=== PATIENT | female | born 1985 | race Caucasian/White ===

== ENCOUNTER 2025-05-08 16:05 | Observation (INO) | payer OTHER, SELFPAY ==
--- NOTE | 2025-05-08 16:10 | OBADM ---
This patient, Anamika Crowley, admitted to the OB room OB Post 116 for observation. Patient/family oriented to hospital policies and general routines including ID bracelet, bed and alarms, visiting hours, pain management, procedures, bathroom and other care routines, personal items, smoking policy, room service/diet, and visiting hours. Patient/Family are encouraged to report perceived risks to care and to ask questions if they do not understand what they are told or what they should do.
--- NOTE | 2025-05-08 16:15 | PC.NURSE ---
Doppler of T's 150's. Visual exam a small long to quarter size bulge of tissue was noted that was deep purple reddish in color. No internal exam was performed at this time.
--- OUTSIDE RECORDS SUMMARY | 2025-05-08 16:16 | XMS_ITS | Encounter Summary ---
Author Organization [facility] System Address [address] [place] [address] Care Team Providers Care Operations Officer Afloat Name Role Phone Shanelle Funk VEGETABLE LOADER MACHINE OPERATOR Primary Care Provider Joycelyn Truong MD Primary Care Provider + [phone] Arielle Haynes NP Primary Care Provider + [phone] Joycelyn Gomez MD Primary Care Provider + [phone] Uma Tomlin [facility] Primary Care Provider + Judy Tse VEGETABLE LOADER MACHINE OPERATOR Primary Care Provider [phone] Uriah Sevilla Primary Care Provider [phone] Encounter Details Date Type Department Care Team (Latest Contact Info) Description 05/24/2018 Abstract [facility] Medical Group Huang Lopez MD Social History Tobacco Use Types Packs/Day Years Used Date Smoking Tobacco: Never Assessed Comments Unknown Sex and Gender Information Value Date Recorded Sex Assigned at Female 11/20/2024 9:16 AM NC MANAGER Legal Sex Female 7:00 PM CDT Gender Identity Not on file Sexual Orientation Not on file documented as of this encounter Plan of Treatment Not on file documented as of this encounter Visit Diagnoses Not on filedocumented in this encounter Additional Health Concerns Infection Onset Date Last Indicated Resolved Time COVID-19 Rule Out 05/17/2020 05/17/2020 05/18/2020 10:31 AM CDT COVID-19 Rule Out 05/04/2021 05/04/2021 05/04/2021 2:21 PM CDT COVID-19 Rule Out 01/31/2022 01/31/2022 01/31/2022 3:20 PM CDT COVID-19 Confirmed 01/31/2022 01/31/2022 12:32 AM CDT COVID-19 Rule Out 06/23/2022 06/23/2022 06/23/2022 12:16 PM CDT COVID-19 Rule Out 11/02/2022 11/02/2022 11/02/2022 1:59 PM NC MANAGER documented as of this encounter Care Teams Operations Officer Afloat Relationship Specialty Start Date End Date Shanelle Funk NP PCP - General 07/04/16 07/27/20 Joycelyn Gomez MD PCP - General INTERNAL MEDICINE 07/28/20 11/28/22 [place] [address] [address] [place] [address] PCP - General Nurse Practitioner Family 12/29/2212/23 Joycelyn Gomez MD PCP - General INTERNAL MEDICINE 11/29/22 12/28/22 [facility] [address] [place], [place] [id number] PCP - General 01/02/23 01/30/23 [place] [address] [address], [address] [place] [address] PCP - General Nurse Practitioner Family 01/31/2310/25 [place] [address] [place] [address] PCP - General Physician Card Reader Medical 11/12/23 documented as of this encounter
--- OUTSIDE RECORDS SUMMARY | 2025-05-08 16:16 | XMS_ITS | Encounter Summary ---
Author Organization [facility] System Address [address] [place] [address] Care Team Providers Care Project Economist Name Role Phone Joycelyn Gomez MD Primary Care Provider + [phone] Arielle Haynes NP Primary Care Provider + [phone] Joycelyn Gomez MD Primary Care Provider + [phone] Uma Tomlin [facility] Primary Care Provider + Judy Tse NP Primary Care Provider [phone] Uriah Sevilla Primary Care Provider [phone] Encounter Details Date Type Department Care Team (Late st Contact Info) Description 06/03/2021 Ocelus Message [facility] Patient Accounts [address] [place], [place] [id number] [facility] Provider RE:financial assistance application Social History Tobacco Use Types Packs/Day Years Used Date Smoking Tobacco: Former Cigarettes 0.3 9.9 2 002 - 09/04/2011 Smokeless Tobacco: Never Alcohol Use Standard Drinks/Week Comments Yes 0 (1 standard drink = 0.6 oz pur e alcohol) social AUDIT-C Answer Date Recorded Q1: How often do you have a drink containing alc ohol? 2-4 times a month 01/20/2021 Q2: How many drinks containi ng alcohol do you have on a typical day when you are drinking? 3 or 4 01/20/2021 Frequency of Binge Drinking Not on file 12/24 PHQ-2 Answer Date Recorded PHQ-2 Score - If the patient scores above 3, please move on to questions 3-9 0 05/04/2021 Comments No Sex and Gender Information Value Date Recorded Sex Assigned at Female 11/20/2024 9:16 AM CARROT TIER Legal Sex Female 7:00 PM CDT Gender Identity Not on file Sexual Orientation Not on file COVID-19 Exposure Response Date Recorded In the last month, have you been in contact with someone who was confirmed or suspected to have Coronavirus / COVID-19? No / Unsure 05/04/2021 10:37 AM CDT documented as of this encounter Plan of Treatment Not on file documented as of this encounter Visit Diagnoses Not on filedocumented in this encounter Additional Health Concerns Infection Onset Date Last Indicated Resolved Time COVID-19 Rule Out 01/31/2022 01/31/2022 01/31/2022 3:20 PM CDT COVID-19 Confirmed 01/31/2022 01/31/2022 12:32 AM CDT COVID-19 Rule Out 06/23/2022 06/23/2022 06/23/2022 12:16 PM CDT COVID-19 Rule Out 11/02/2022 11/02/2022 11/02/2022 1:59 PM CARROT TIER Assessment Noted Time PHQ-9 Depression Total Score: 0 05/04/20 21 1:11 PM CDT documented as of this encounter Care Teams Project Economist Relationship Specialty Start Date End Date Joycelyn Gomez MD PCP - General INTERNAL MEDICINE 07/28/20 11/28/22 [place] [address] [address] PCP - General Nurse Practitioner Family 12/29/2212/23 Joycelyn Gomez MD PCP - General INTERNAL MEDICINE 11/29/22 12/28/22 Uma Tomlin, CLOTH EXAMINER MACHINE- [address] [place] [address] PCP - General 01/02/23 01/30/23 [place] [address] [address], [address] [place] [address] PCP - General Nurse Practitioner Family 01/31/2310/25 [place] [address] [place] [address] PCP - General Physician Licensing Coordinator Medical 11/12/23 documented as of this encounter
--- OUTSIDE RECORDS SUMMARY | 2025-05-08 16:16 | XMS_ITS | Encounter Summary ---
Author Organization [facility] System Address [address] [place] [address] Care Team Providers Care Rpg Programmer Analyst Name Role Phone Shanelle Funk ASSOCIATE DIRECTOR OF BIOSTATISTICS Primary Care Provider Joycelyn Truong MD Primary Care Provider + [phone] Arielle Haynes ASSOCIATE DIRECTOR OF BIOSTATISTICS Primary Care Provider + [phone] Joycelyn Gomez MD Primary Care Provider + [phone] [facility] Primary Care Provider + Judy Tse ASSOCIATE DIRECTOR OF BIOSTATISTICS Primary Care Provider [phone] Uriah Sevilla Primary Care Provider [phone] Encounter Details Date Type Department Care Team (Late st Contact Info) Description 07/27/2020 Big Box Overstockst Message Enc [facility] Medical Group Family & Internal Medicine [address] [address] [facility] [address] [place] [address] RE: Other Social History Tobacco Use Types Packs/Day Years Used Date Smoking Tobacco: Former Cigarettes Q uit: 09/04/2011 Smokeless Tobacco: Never Alcohol Use Standard Drinks/Week Comments Yes 0 (1 standard drink = 0.6 oz pur e alcohol) social PHQ-2 Answer Date Recorded PHQ-2 Score 4 2020 Comments No Sex and Gender Information Value Date Recorded Sex Assigned at Female 11/20/2024 9:16 AM INVESTIGATOR VICE Legal Sex Female 7:00 PM CDT Gender Identity Not on file Sexual Orientation Not on file documented as of this encounter Plan of Treatment Not on file documented as of this encounter Visit Diagnoses Not on filedocumented in this encounter Additional Health Concerns Infection Onset Date Last Indicated Resolved Time COVID-19 Rule Out 05/04/2021 05/04/2021 05/04/2021 2:21 PM CDT COVID-19 Rule Out 01/31/2022 01/31/2022 01/31/2022 3:20 PM CDT COVID-19 Confirmed 01/31/2022 01/31/2022 12:32 AM CDT COVID-19 Rule Out 06/23/2022 06/23/2022 06/23/2022 12:16 PM CDT COVID-19 Rule Out 11/02/2022 11/02/2022 11/02/2022 1:59 PM INVESTIGATOR VICE Assessment Noted Time PHQ-9 Depression Total Score: 12 020 11:09 AM CDT documented as of this encounter Care Teams Rpg Programmer Analyst Relationship Specialty Start Date End Date Shanelle Funk NP PCP - General 07/04/16 07/27/20 Joycelyn Gomez MD PCP - General INTERNAL MEDICINE 07/28/20 11/28/22 [place] [address] [place] [address] PCP - General Nurse Practitioner Family 12/29/2212/23 Joycelyn Gomez MD PCP - General INTERNAL MEDICINE 11/29/22 12/28/22 Uma Tomlin FNP- [address] [place] [address] PCP - General 01/02/23 01/30/23 [place] [address] [address] [place] [address] PCP - General Nurse Practitioner Family 01/31/2310/25 [place] [address] [place] [address] PCP - General Physician Skiver Hand Medical 11/12/23 documented as of this encounter
--- OUTSIDE RECORDS SUMMARY | 2025-05-08 16:16 | XMS_ITS | Clinical Summary ---
Author Organization [facility] Address [address] [place] [address] Care Team Providers Care Field Account Director Name Role Phone Unavailable Primary Care Provider Unavailabl e Source Comments [facility],non-owned Affiliates and Associated Physician Practices is amultiple site organization consisting of ambulatory clinics and hospital sitesin [place], [place], [place] and [place]. This disclosure is being madepursuant to the Care Everywhere program and may not contain all information available regarding this patient. 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 Social History Tobacco Use Types Packs/Day Years Used Date Smoking Tobacco: Never Assessed Comments Unknown Sex and Gender Information Value Date Recorded Sex Assigned at Not on file Legal Sex Female 1:06 PM REAL ESTATE PROFESSIONAL Gender Identity Not on file Sexual Orientation Not on file Plan of Treatment Health Maintenance Due Date Last Done Comments HIV SCREENING 2001 HEPATITIS C SCREENING 05/23/2004 DTAP/TDAP/TD VACCINES (1 - Tdap) 2005 HEPATITIS B VACCINE (1 of 3 - 19+ 3-dose series) 2005 HPV VACCINE (1 - 3-dose SCDM series) 2013 COVID-19 VACCINE ( - 2023-2 5 season) 2024 DEPRESSION SCREENING 09/24/2024 INFLUENZA VACCINE (#1) 2025 ZOSTER VACCINE (1 of 2) 2036 HIB VACCINE Aged Out No longer eligi ble based on patient's age to complete this topic MENINGOCOCCAL (Group B) VACC INE SHARED DECISION-MAKING Aged Out No longer eligibl e based on patient's age to complete this topic MENINGOCOCCAL GROUPS A/C/Y/W VACCINE Aged Out No longer eligible b ased on patient's age to complete this topic PNEUMOCOCCAL VACCINE Aged Out No long er eligible based on patient's age to complete this topic Insurance AETNA Advance Directives Documents on File Type Date Recorded Patient Svp Research And Strategic Analysis Expl anation Adv Directive/Living Will/POA 01/01/2017
--- OUTSIDE RECORDS SUMMARY | 2025-05-08 16:16 | XMS_ITS | Encounter Summary ---
Author Organization [facility] Address [address] [place] [address] Care Team Providers Care Clinical Application Manager Name Role Phone Joycelyn Gomez MD Primary Care Provider + [phone] Arielle Haynes BURGLAR ALARM ASSEMBLER Primary Care Provider + [phone] Joycelyn Gomez MD Primary Care Provider + [phone] Uma Tomlin [facility] Primary Care Provider + Judy Tse BURGLAR ALARM ASSEMBLER Primary Care Provider [phone] Uriah Sevilla Primary Care Provider [phone] Encounter Details Date Type Department Care Team (Late st Contact Info) Description 11/03/2021 MyChart Message Enc [facility] Medical Group Family & Internal Medicine [facility] [id number] [place] [address] Joycelyn Gomez MD [address] [place] [address] [place] Social History Tobacco Use Types Packs/Day Years [...] Sex Assigned at Female 11/20/2024 9:16 AM WASTE ELIMINATION Legal Sex Female 7:00 PM CDT Gender Identity Not on file Sexual Orientation Not on file COVID-19 Exposure Response Date Recorded In the last month, have you been in contact with someone who was confirmed or suspected to have Coronavirus / COVID-19? No / Unsure 10/17/2021 1:23 PM WASTE ELIMINATION documented as of this encounter Progress Notes * Arielle Jimenez RN - 11/15/2021 3:59 PM CST PA danial [place] was DENIED. Will need to work on Letter, E ELIMINATION documented in this encounter Plan of Treatment Not on [...] Rule Out 11/02/2022 11/02/2022 11/02/2022 1:59 PM WASTE ELIMINATION Assessment Noted Time PHQ-9 Depression Total Score: 0 05/04/20 21 1:11 PM CDT documented as of this encounter Care Teams Clinical Application Manager Relationship Specialty Start Date End Date Joycelyn Gomez MD PCP - General INTERNAL MEDICINE 07/28/20 11/28/22 [place] [address] [place] [address] PCP - General Nurse Practitioner Family 12/29/2212/23 Joycelyn Gomez MD PCP - General INTERNAL MEDICINE 11/29/22 12/28/22 Uma Tomlin, [facility] [address] [place] [address] PCP - General 01/02/23 01/30/23 [place] [address] [address], [address] [place] [address] PCP - General Nurse Practitioner Family 01/31/2310/25 [place] [address] [place] [address] PCP - General Physician Manager New Product Medical 11/12/23 documented as of this encounter
--- OUTSIDE RECORDS SUMMARY | 2025-05-08 16:16 | XMS_ITS | Encounter Summary ---
Author Organization [facility] System Address [address] [place] [address] Care Team Providers Care Stars Coordinator Name Role Phone Uriah Sevilla Primary Care Provider [phone] Encounter Details Date Type Department Care Team (Late st Contact Info) Description 11/20/2024 Vdopia Message Enc [facility] Medical Group Family & Internal Medicine [address] [address] [facility] Provider Appt Social History Tobacco Use Types Packs/Day Years Used Date Smoking Tobacco: Former Cigarettes 0.3 9.9 2 002 - 09/04/2011 Passive Smoke Exposure: Past Smokeless Tobacco: Never Alcohol Use Standard Drinks/Week [...] on file 12/24 PHQ-2 Answer Date Recorded Patient Health Questionnaire-2 Score 0 11/19/2024 Comments No Sex and Gender Information Value Date Recorded Sex Assigned at Female 11/20/2024 9:16 AM ATHLETIC TEAM PHYSICIAN Legal Sex Female 7:00 PM CDT Gender Identity Not on file Sexual Orientation Not on file documented as of this encounter Plan of Treatment Not on file documented as of this encounter Visit Diagnoses Not on filedocumented in this encounter Additional Health Concerns Assessment Noted Time PHQ-9 Depression Total Score: 1 02/01/20 22 9:49 AM CDT documented as of this encounter Care Teams Stars Coordinator Relationship Specialty Start [place] [address] [place] [address] PCP - General Physician Costing Analyst Medical 11/12/23 documented as of this encounter
--- OUTSIDE RECORDS SUMMARY | 2025-05-08 16:16 | XMS_ITS | Encounter Summary ---
Author Organization [facility] System Address [address] [place] [address] Care Team Providers Care Engineering Project Manager Name Role Phone Joycelyn Gomez MD Primary Care Provider + [phone] Arielle Haynes NP Primary Care Provider + [phone] Joycelyn Gomez MD Primary Care Provider + [phone] Uma Tomlin [facility] Primary Care Provider + Judy Tse NP Primary Care Provider [phone] Uriah Sevilla Primary Care Provider [phone] Encounter Details Date Type Department Care Team (Late st Contact Info) Description 05/09/2021 Coiney Message [facility] Patient Accounts [address] [place], [place] [id number] [facility] Provider Financial Assistance Social History Tobacco Use Types Packs/Day Years [...] Sex Assigned at Female 11/20/2024 9:16 AM POCKET AND PULLEY MACHINE OPERATOR Legal Sex Female 7:00 PM CDT Gender [...] Rule Out 11/02/2022 11/02/2022 11/02/2022 1:59 PM POCKET AND PULLEY MACHINE OPERATOR Assessment Noted Time PHQ-9 Depression Total Score: 0 05/04/20 21 1:11 PM CDT documented as of this encounter Care Teams Engineering Project Manager Relationship Specialty Start Date End Date Joycelyn Gomez MD PCP - General INTERNAL MEDICINE 07/28/20 11/28/22 [place] [address] [address] PCP - General Nurse Practitioner Family 12/29/2212/23 Joycelyn Gomez MD PCP - General INTERNAL MEDICINE 11/29/22 12/28/22 Uma Tomlin, [facility]- [address] [place] [address] PCP - General 01/02/23 01/30/23 [place] [address] [address], [address] [place] [address] PCP - General Nurse Practitioner Family 01/31/2310/25 [place] [address] [place] [address] PCP - General Physician Appliance Counselor Medical 11/12/23 documented as of this encounter
--- OUTSIDE RECORDS SUMMARY | 2025-05-08 16:16 | XMS_ITS | Encounter Summary ---
Author Organization [facility] Address [address] [place] [address] Care Team Providers Care Elementary Special Education Teacher Name Role Phone Joycelyn Gomez MD Primary Care Provider + [phone] Arielle Haynes INSURANCE DEFENSE ATTORNEY Primary Care Provider + [phone] Joycelyn Gomez MD Primary Care Provider + [phone] Uma Tomlin [facility] Primary Care Provider + Judy Tse INSURANCE DEFENSE ATTORNEY Primary Care Provider [phone] Uriah Sevilla Primary Care Provider [phone] Encounter Details Date Type Department Care Team (Late st Contact Info) Description 11/25/2020 Diligent Board Member Services Message [facility] [address] [place] [address] [facility] [place] Social History Tobacco Use Types Packs/Day Years Used Date Smoking Tobacco: Former Cigarettes Q uit: 09/04/2011 Smokeless Tobacco: Never Alcohol Use Standard Drinks/Week Comments Yes 0 (1 standard drink = 0.6 oz pur e alcohol) social PHQ-2 Answer Date Recorded PHQ-2 Score 4 2020 Comments No Sex and Gender Information Value Date Recorded Sex Assigned at Female 11/20/2024 9:16 AM TRENCH PIPE LAYER HELPER Legal Sex Female 7:00 PM CDT Gender [...] Rule Out 11/02/2022 11/02/2022 11/02/2022 1:59 PM TRENCH PIPE LAYER HELPER Assessment Noted Time PHQ-9 Depression Total Score: 12 020 11:09 AM CDT documented as of this encounter Care Teams Elementary Special Education Teacher Relationship Specialty Start Date End Date Joycelyn Gomez MD PCP - General INTERNAL MEDICINE 07/28/20 11/28/22 [place] [address] [place] [address] PCP - General Nurse Practitioner Family 12/29/2212/23 Joycelyn Gomez MD PCP - General INTERNAL MEDICINE 11/29/22 12/28/22 Uma Tomlin FNP- [address] [place], [place] [address] PCP - General 01/02/23 01/30/23 [place] [address] [address], [address] [place], [place] [address] PCP - General Nurse Practitioner Family 01/31/2310/25 [place] [address] [place] [address] PCP - General Physician Certified Credit Counselor Medical 11/12/23 documented as of this encounter
--- OUTSIDE RECORDS SUMMARY | 2025-05-08 16:16 | XMS_ITS | Encounter Summary ---
Author Organization [facility] Address [address] [place] [address] Care Team Providers Care Electronic Assembler Group Leader Name Role Phone Judy Tse NP Primary Care Provider [phone] Uriah Sevilla Primary Care Provider [phone] Encounter Details Date Type Department Care Team (Late st Contact Info) Description 10/25/2023 iBiz Softwaret Message Enc [facility] Medical Group Family & Internal Medicine [facility] [address] [place] [address] Uriah Sevilla PA [address] [place] [address] [place] Social History Tobacco Use Types Packs/Day Years [...] Date Recorded Patient Health Questionnaire-2 Score 0 01/24/2023 Comments No Sex and Gender Information Value Date Recorded Sex Assigned at Female 11/20/2024 9:16 AM CONFIDENTIAL INVESTIGATOR Legal Sex Female 7:00 PM CDT Gender Identity Not on file Sexual Orientation Not on file documented as of this encounter Plan of Treatment Not on file documented as of this encounter Visit Diagnoses Not on filedocumented in this encounter Additional Health Concerns Assessment Noted Time PHQ-9 Depression Total Score: 1 02/01/20 22 9:49 AM CDT documented as of this encounter Care Teams Electronic Assembler Group Leader Relationship Specialty [place] [address] [address], [address] [place] [address] PCP - General Nurse Practitioner Family 01/31/2310/25 [place] [address] [place] [address] PCP - General Physician Lead Security Officer Medical 11/12/23 documented as of this encounter
--- OUTSIDE RECORDS SUMMARY | 2025-05-08 16:16 | XMS_ITS | Clinical Summary ---
Author Organization [facility] Address [place] [address] Care Team Providers Care Fast Food Fry Cook Name Role Phone Uriah Sevilla Primary Care Provider [phone] Allergies Active Allergy Reactions Criticality Noted Date Comments Nickel Rash Low 06/05/2016 Tramadol Nausea Only,Dizziness Low 01/20/2021 Medications albuterol sulfate HFA 108 (90 Base) MCG/ACT inhalerIndicatio ns:Mild intermittent asthma, unspecified whether complicated (HHS/HCC) Inhale 2 puffs into the lungs every 6 (six) hours as needed for Wheezing. 8 g 5 03/19/20 20 Active multi vitamin/minerals tablet Take 1 tablet by mouth daily. Active SUMAtriptan (IMITREX) 100 MG tabletIndication s:Migraine without aura and with status migrainosus, not intractable TAKE ONE TABLET BY MOUTH AT ONSET OF SYMPTOMS, MAY TAKE ONE TABLET 2 HOURS LATER. MAX OF 2 TABLETS SHALA 24 HOUR PERIOD. 9 tablet 5 06/30/20 24 Active Additional Information Patient not taking.Reported on 04/20/2025 linaCLOtide (LINZESS) 145 MCG capsuleIndicatio ns:Irritable bowel syndrome with constipation Take 1 capsule (145 mcg total) by mouth every morning before breakfast. Take on empty stomach at least 30 minutes prior to the first meal of the day. Swallow whole. Do not open capsule or chew. 90 capsule 3 12/04/19 25 Active Additional Information Patient not taking.Reported on 04/20/2025 MV & Min w/FA-DHA ( GUMMIES) 0.18-25 MG Chew Tab Active fluticasone propionate (FLONASE) 50 MCG/ACT nasal sprayIndications :Acute non-recurrent maxillary sinusitis 2 sprays by Nasal route daily for 30 days. 2 puffs each nostril twice a day for 3 days, then 2 puffs each nostril daily 18.2 mL 1 04/20/20 25 025 Active TRI-SPRINTEC 0.18/0.215/0.25 MG-35 MCG tablet Take 1 tablet by mouth daily. 12/20/19 23 025 Discontinu ed(Therapy completed) tirzepatide (MOUNJARO) 10 MG/0.5ML injectionIndicat ions:Diabetes Mellitus Indications: Diabetes Inject 10mg into the skin once per week 2 mL 2 11/19/19 25 025 Discontinu ed(Therapy completed) amoxicillin (AMOXIL) 875 MG tabletIndication s:Acute non-recurrent maxillary sinusitis Take 1 tablet (875 mg total) by mouth 2 (two) times daily for 10 days. 20 tablet 04/20/20 025 Hospital, Clinic, or Other Facility Administered Medication Ordered Dose Route Frequency Start Date End Date Status ondansetron (ZOFRAN) tablet 4 mgIndications:Obesity (BMI 35.0-39.9 without comorbidity) 4 mg OR Once 02/13/2024 Active Active Problems Problem Noted Date Diagnosed Date Controlled substance agreement signed 02/14/2023 Palpitations 02/14/2023 Exercise-induced asthma (HHS/HCC) 02/05/2023 Hx of gestational diabetes mellitus, not current ly 01/20/2021 Chronic pain of right knee 11/14/2019 Moderate mixed hyperlipidemia not requiring stat in therapy 09/04/2019 Allergic rhinitis 05/24/2018 BMI 35.0-35.9,adult 04/01/2018 Irritable bowel syndrome 05/23/2016 Menstrual periods irregular 12/16/2015 Chronic sinusitis 12/12/2015 PCOS (polycystic ovarian syndrome) 11/06/2014 Migraine headache 03/04/2013 Cystic acne 10/18/2012 Insomnia 10/18/2012 Anxiety 09/12/2012 Estimated Date of Delivery Comme nts Yes 09/22/2025 Resolved Problems Problem Noted Date Diagnosed Date Resolved Date Upper respiratory tract infe ction, unspecified type 08/18/2022 02/05/2023 Exposure to influenza 11/05/20192019 Obesity (BMI 30.0-34.9) 09/04/2019 0510/2020 Cough 01/05/2019 06/02/2020 Fatigue 05/24/2018 02/05/2023 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/23/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 01/03/2017 01/23/2021 Muscle spasm 09/22/2015 06/02/2020 Heartburn 01/28/2015 02/05/2023 Encounters Date Type Department Care Team Description 04/20/2025 3:40 PM CDT Office Visit [facility] [address] [phone] Uriah Sevilla PA Sinus Problem (Pt c/o headache, runny nose, ears feel full and sinus pressure X 6 weeks) 04/20/2025 Travel 02/09/2025 Telephone [facility] [address] [phone] Molly Apodaca FNP-BC Lab Results 02/05/2025 11:20 AM CDT Laboratory Only [facility] Internal [address] [phone] Molly Apodaca FNP-BC 02/05/2025 10:20 AM CDT Office Visit [facility] [address] [phone] Molly Apodaca FNP-BC Tester/Lift Trucker Exam 02/05/2025 Results Follow-Up [facility] & Internal [address] [phone] Molly Apodaca FNP-BC TEST URINE, HCG QUANT (SERUM)-CHORIONIC GONADOTROPIN, Cytopath Cerv/Vag Thin Layer 02/05/2025 Travel from Last 3 Months Immunizations Immunization Administration Dates Next Due Afluria 6-35 months (pre-tamara led syringe IIV4) 07/02/2017 Dtap 04/13/2017 Hepatitis B (Generic: Adult) 10/30/2012 Influenza (Generic) 06/21/2012 Influenza Adult (Generic) 07/16/2023,09/2021,08/01/2021,2019,07/09/2019 Influenza Peds (Generic) 07/02/2017 PFIZER COVID-19 (ORIGINAL FORMULATION, PURPLE CAP) mRNA, LNP-S, PF, 30 MCG/0.3 ML DOSE 01/06/2021,12/15/2020 Tdap (Generic) 04/25/2017 Family History Medical History Relation Comments Cancer Father Diabetes Father Hyperlipidemia Father Lung Cancer Father Cancer Mother Diabetes Mother Hyperlipidemia Mother Hypertension Mother Thyroid cancer Mother No Known Problems Other Throat cancer Paternal Grandfather Relation Status Comments Father prostrate & lung Mother Alive thyroid Other Paternal Grandfather Alive Social History Tobacco Use Types Packs/Day Years Used Date Smoking Tobacco: Former Cigarettes 0.3 9.9 2 002 - 09/04/2011 Passive Smoke Exposure: Past Smokeless Tobacco: Never Tobacco Cessation:Counseling Given: Yes Alcohol Use Standard Drinks/Week Comments Yes 0 [...] Recorded Patient Health Questionnaire-2 Score 0 11/19/2024 Estimated Date of Delivery Comme nts Yes 09/22/2025 Sex and Gender Information Value Date Recorded Sex Assigned at Female 11/20/2024 9:16 AM CLINICAL SCIENCES PROFESSOR Legal Sex Female 7:00 PM CDT Gender Identity Not on file Sexual Orientation Not on file Last Filed Vital Signs Vital Sign Reading Time Taken Comments Blood Pressure 110/85 04/20/2025 3:46 PM CDT Pulse 85 04/20/2025 3:46 PM CDT Temperature 36.7 C (98 F) 04/20/2025 3:46 PM CDT Respiratory Rate 16 04/20/2025 3:46 PM CDT Oxygen Saturation 100% 04/20/2025 3:46 PM CDT Inhaled Oxygen Concentration - - Weight 89.8 kg (198 lb) 04/20/2025 3:46 PM CDT Height 165.1 cm (5' 5) 04/20/2025 3:46 PM CDT Body Mass Index 32.95 04/20/2025 3:46 PM CDT Plan of Treatment Health Maintenance Due Date Last Done Comments HPV Vaccines (1 - 3-dose SCDM series) 2013 RSV Immunization or 60+ Years (1 - Risk 1-dose series) 07/28/2025 Annual Physical 02/05/2026 02/05/2025, 02/05/2023 COVID-19 Vaccine ( - 2023- season) 2026 01/06/2021, 12/15/2020 Postponed from 05/25/2024 (Patient Refused) Hepatitis B Vaccines (2 of 3 - 19+ 3-dose series) 02/10/2026 10/30/2012 Postponed from 11/27/2012 (Patient/Guardian Refusal) Colorectal Cancer Screening Colonoscopy (10 Years) 07/05/2026 07/04/2006 Postponed from 07/04/2016 (Per Provider Recommendation) DTaP, Tdap and Td Vaccines (3 - Td or Tdap) 04/25/2027 04/25/2017, 04/13/2017 Cervical Cancer Screening Pap Smear (Age 30 to 64) Every 3 Years 03/04/2028 03/04/2025, 02/05/2025, 01/09/2021 Cervical Cancer Screening Pap with HPV Testing (Age 30 to 64) Every 5 Years 03/04/2030 03/04/2025, 01/07/2021, 11/26/2017, Additional history exists Cervical Cancer Screening with HPV 03/04/2030 Pneumococcal Vaccine: Pediatrics (0 to 5 Years) and At-Risk Patients (6 to 49 Years) (1 of 2 - PCV) 01/25/2034 Postponed from 2005 (Per Provider Recommendation) PHQ-2 (Physician [place]) Completed 11/19/2024 Hepatitis C Completed 03/04/2025, 03/04/2025 Meningococcal B Vaccine Aged Out No l onger eligible based on patient's age to complete this topic Meningococcal Vaccine Aged Out No marta eriberto eligible based on patient's age to complete this topic RSV Immunizations Under 20 Months Aged Out No longer eligible based on patient's age to complete this topic Procedures Procedure Name Priority Date/Time Associated Diagnosis Comments COLLECTION VENOUS BLOOD VENIPUNCTURE Routine 02/05/2025 11:11 AM CDT Positive urine test (HHS/HCC) Irregular menses HCG QUANT (SERUM)-CHORIONIC GONADOTROPIN Routine 02/05/2025 11:10 AM CDT Irregular menses Positive urine test (HHS/HCC) CYTOPATH CERV/VAG THIN LAYER Routine 02/05/2025 10:58 AM CDT Cervical cancer screening TEST URINE Routine 02/05/2025 Irregular menses OUTSIDE CYTOPATH CERV/VAG INTERPRET (PAP) 01/07/2021 COLONOSCOPY Routine 07/04/2006 12:00 AM CDT from Last 3 Months or Most Recently Relevant to Health Maintenance Results * (ABNORMAL) HCG QUANT (SERUM)-CHORIONIC GONADOTROPIN (02/05/2025 11:10 AM CDT) HCG NON 83,303(H) mIU/mL [employer] [facility] Comment: Reference Range Non or premenopausal <5 Postmenopausal <10 Values from different assay methods may vary. The use of this assay to monitor or to diagnose patients with cancer or any condition unrelated to has not been cleared or approved by the FDA or the meteorology professor of the assay. 02/05/2025 11:1 0 AM CDT 02/06/2025 4:57 AM CDT Narrative Resulting Agency Comment Performing Organization Information: Site ID: [email or web address] Name: [employer] Address: [address] [address] Director: Donis Perez MD Molly Apodaca [facility] Final Re sult [facility] [address] [address] [address], [place] * Cytopath Cerv/Vag Thin Layer (02/05/2025 10:58 AM CDT) CLINICAL INFORMATION: IRREGULAR [place] Clinical Information: 12/20/2024 [place] Date of Last Pap NONE GIVEN [facility] [place] Previous Biopsy? NONE GIVEN [facility] [place] SOURCE (QST) Cervix, Endocervix [facility] [employer] [place] STATEMENT OF ADEQUACY: [place] Comment: Satisfactory for evaluation. Endocervical/transformation zone component present. PAP INTERPRETATION/RESU LTS Cytology Results: Negative for intraepithelial lesion or malignancy. [place] COMMENT: This Pap test has been evaluated with computer assisted technology. [place] TITLE EXAMINER [place] Comment: JOSSUE CT(ASCP) CT screening location: [place] [address] [place] [address] COMMENT: [place] Comment: EXPLANATORY NOTE: The Pap is a screening test for cervical cancer. It is not a diagnostic test and is subject to false negative and false positive results. It is most reliable when a satisfactory sample, regularly obtained, is submitted with relevant clinical findings and history, and when the Pap result is evaluated along with historic and current clinical information. 02/05/2025 10:5 8 AM CDT 02/06/2025 5:01 PM CDT Narrative Resulting Agency Comment Performing Organization Information: Site ID: [id number] Name: [facility] Address: [facility] [place] [address] Director: Donis Perez Molly Apodaca BATTERY MECHANIC- PATHOLOGY/CYTOLOGY ORDER KEDNALL Final Result [facility] [place] [address] [place] [address], [place] * (ABNORMAL) TEST URINE (02/05/2025) URINE HCG TEST POSITIVE(A ) NEGATIVE -[id number] MARY BREWSTER Internal Control: VALID VALID -[id number] MARY BREWSTER URINE SPECIMEN FROM URETHRA / Unknown 02/05/2025 us Molly Apodaca BATTERY MECHANIC-BC URINE ORDERABLES Final R esult Performing Organization Address City/[facility]/ZIP Co de Phone Number -[address] [place] [address] [place] [address], * PAP SMEAR WITH HPV (01/07/2021) 01/07/2021 [facility] Scanned SCANNING Final Resu lt * Colonoscopy (07/04/2006 12:00 AM CDT) 07/04/2006 07/04/2006 Narrative [facility] TO EPIC CONVERSION - 07/04/2006 12:00 AM CDT Documented hx of procedure Procedure Note , Generic Conversion, - 07/28/2018 Documented hx of procedure Generic Conversion Md HUERTAS GI PROCEDURE ORDERABLES Final Result Performing Organization Address City/[facility] Co de Phone Number [facility] TO EPIC CONVERSION from Last 3 Months or Most Recently Relevant to Health Maintenance Insurance [facility] Care Teams Fast Food Fry Cook Relationship Specialty [place] [address] [place] [address] PCP - General Physician Change Control Manager Medical 11/12/23
--- OUTSIDE RECORDS SUMMARY | 2025-05-08 16:16 | XMS_ITS | Encounter Summary ---
Author Organization [facility] Address [address] [place] [address] Care Team Providers Care Coat Checker Name Role Phone Joycelyn Gomez MD Primary Care Provider + [phone] Arielle Haynes EQUIPMENT MAINTENANCE TECHNICIAN Primary Care Provider + [phone] Joycelyn Gomez MD Primary Care Provider + [phone] Uma Tomlin [facility] Primary Care Provider + Judy Tse EQUIPMENT MAINTENANCE TECHNICIAN Primary Care Provider [phone] Uriah Sevilla Primary Care Provider [phone] Encounter Details Date Type Department Care Team (Late st Contact Info) Description 10/31/2021 MyChart Message Enc [facility] Medical Group Family & Internal Medicine [facility] [phone] [place] [phone] Joycelyn Gomez MD [address] [place] [address] [employer] Social History Tobacco Use Types Packs/Day Years [...] Sex Assigned at Female 11/20/2024 9:16 AM NUCLEAR CONTROL OPERATOR Legal Sex Female 7:00 PM CDT Gender Identity Not on file Sexual Orientation Not on file COVID-19 Exposure Response Date Recorded In the last month, have you been in contact with someone who was confirmed or suspected to have Coronavirus / COVID-19? No / Unsure 10/17/2021 1:23 PM NUCLEAR CONTROL OPERATOR documented as of this encounter Progress Notes * Arielle Jimenez RN - 10/31/2021 3:21 PM CST Printed to discuss with Dr. Hirsch EAR CONTROL OPERATOR documented in this encounter Plan of Treatment [...] Rule Out 11/02/2022 11/02/2022 11/02/2022 1:59 PM NUCLEAR CONTROL OPERATOR Assessment Noted Time PHQ-9 Depression Total Score: 0 05/04/20 1:11 PM CDT documented as of this encounter Care Teams Coat Checker Relationship Specialty Start Date End Date Joycelyn Gomez MD PCP - General INTERNAL MEDICINE 07/28/20 11/28/22 [place] [address] [place] [address] PCP - General Nurse Practitioner Family 12/29/2212/23 Joycelyn Gomez MD PCP - General INTERNAL MEDICINE 11/29/22 12/28/22 Uma Tomlin, TERMINOLOGIST- [address] [place] [address] PCP - General 01/02/23 01/30/23 [place] [address] [address], [address] [place] [address] PCP - General Nurse Practitioner Family 01/31/2310/25 [place] [address] [place] [address] PCP - General Physician Advice Nurse Medical 11/12/23 documented as of this encounter
--- OUTSIDE RECORDS SUMMARY | 2025-05-08 16:16 | XMS_ITS | Encounter Summary ---
Author Organization [facility] Address [address] [place] [address] Care Team Providers Care Automotive Engineering Teacher Name Role Phone Joycelyn Gomez MD Primary Care Provider + [phone] Arielle Haynes WOOL HANKER Primary Care Provider + [phone] Joycelyn Gomez MD Primary Care Provider + [phone] Uma Tomlin [facility] Primary Care Provider + Judy Tse WOOL HANKER Primary Care Provider [phone] Uriah Sevilla Primary Care Provider [phone] Encounter Details Date Type Department Care Team (Late st Contact Info) Description 09/18/2022 MyChart Message Enc [facility] Medical Group Family & Internal Medicine - [address] [phone] [place] Gomez MD Request Social History Tobacco Use Types Packs/Day Years [...] please move on to questions 3-9 0 01/31/2022 Comments No Sex and Gender Information Value Date Recorded Sex Assigned at Female 11/20/2024 9:16 AM CORPORATE HEALTH CONSULTANT Legal Sex Female 7:00 PM CDT Gender Identity Not on file Sexual Orientation Not on file documented as of this encounter Plan of Treatment Not on file documented as of this encounter Visit Diagnoses Not on filedocumented in this encounter Additional Health Concerns Infection Onset Date Last Indicated Resolved Time COVID-19 Rule Out 11/02/2022 11/02/2022 11/02/2022 1:59 PM CORPORATE HEALTH CONSULTANT Assessment Noted Time PHQ-9 Depression Total Score: 1 02/01/20 22 9:49 AM CDT documented as of this encounter Care Teams Automotive Engineering Teacher Relationship Specialty Start Date End Date Joycelyn Gomez MD PCP - General INTERNAL MEDICINE 07/28/20 11/28/22 [place] [address] [employer] [address] [employer] [address] [address] [place], [place] [id number] PCP - General Nurse Practitioner Family 12/29/2212/23 Joycelyn Gomez MD PCP - General INTERNAL MEDICINE 11/29/22 12/28/22 Uma Tomlin, GINO- [address] [place], [place] [id number] PCP - General 01/02/23 01/30/23 [place] [address] [address], [address] [place], [place] [id number] PCP - General Nurse Practitioner Family 01/31/2310/25 [place] [address] [facility] [place] [address] PCP - General Physician Artist Woodblock Medical 11/12/23 documented as of this encounter
--- OUTSIDE RECORDS SUMMARY | 2025-05-08 16:16 | XMS_ITS | Encounter Summary ---
Author Organization [facility] Address [address] [place] [address] Care Team Providers Care Director Of Hospitality Name Role Phone Joycelyn Gomez MD Primary Care Provider + [phone] Arielle Haynes NP Primary Care Provider + [phone] Joycelyn Gomez MD Primary Care Provider + [phone] Uma Tomlin [facility] Primary Care Provider + Judy Tse NP Primary Care Provider [phone] Uriah Sevilla Primary Care Provider [phone] Encounter Details Date Type Department Care Team (Late st Contact Info) Description 08/08/2022 [employer] Message Enc [facility] Medical Group Family & Internal Medicine - [address] [phone] Chris [facility] Provider antibiotic Social History Tobacco Use Types Packs/Day Years [...] Sex Assigned at Female 11/20/2024 9:16 AM EMERGENCY NURSE Legal Sex Female 7:00 PM CDT Gender Identity Not on file Sexual Orientation Not on file COVID-19 Exposure Response Date Recorded In the last 10 days, have yo u been in contact with someone who was confirmed or suspected to have Coronavirus/COVID-19? No / Unsure 07/25/2022 4:17 PM CDT documented as of this encounter Plan of Treatment Not on file documented as of this encounter Visit Diagnoses Not on filedocumented in this encounter Additional Health Concerns Infection Onset Date Last Indicated Resolved Time COVID-19 Rule Out 11/02/2022 11/02/2022 11/02/2022 1:59 PM EMERGENCY NURSE Assessment Noted Time PHQ-9 Depression Total Score: 1 02/01/20 22 9:49 AM CDT documented as of this encounter Care Teams Director Of Hospitality Relationship Specialty Start Date End Date Joycelyn Gomez MD PCP - General INTERNAL MEDICINE 07/28/20 11/28/22 [place] [address] [employer] [address] [place] [address] PCP - General Nurse Practitioner Family 12/29/2212/23 Joycelyn Gomez MD PCP - General INTERNAL MEDICINE 11/29/22 12/28/22 Uma Tomlin FNP- [address] [place] [address] PCP - General 01/02/23 01/30/23 [place] [address], [address] [place] [address] PCP - General Nurse Practitioner Family 01/31/2310/25 [place] [address] [place] [address] PCP - General Physician Perinatal Tech Medical 11/12/23 documented as of this encounter
--- OUTSIDE RECORDS SUMMARY | 2025-05-08 16:16 | XMS_ITS | Encounter Summary ---
Author Organization [facility] Address [address] [place] [address] Care Team Providers Care Roller Man Name Role Phone Joycelyn Gomez MD Primary Care Provider + [phone] Arielle Haynes TITLE CLOSER Primary Care Provider + [phone] Joycelyn Gomez MD Primary Care Provider + [phone] [facility] Care Provider + Judy Tse TITLE CLOSER Primary Care Provider [phone] Uriah Sevilla Primary Care Provider [phone] Encounter Details Date Type Department Care Team (Late st Contact Info) Description 11/23/2020 [employer] Message [facility] [address] [place] [address] Chris [facility] Provider RE:Migraine med refill Social History Tobacco Use Types Packs/Day Years Used Date Smoking Tobacco: Former Cigarettes Q uit: 09/04/2011 Smokeless Tobacco: Never Alcohol Use Standard Drinks/Week Comments Yes 0 (1 standard drink = 0.6 oz pur e alcohol) social PHQ-2 Answer Date Recorded PHQ-2 Score 4 2020 Comments No Sex and Gender Information Value Date Recorded Sex Assigned at Female 11/20/2024 9:16 AM PASSPORT SUPPORT MANAGER Legal Sex Female 7:00 PM CDT Gender Identity Not on file Sexual Orientation Not on file documented as of this encounter Progress Notes * SOREN Hirsch - 11/24/2020 9:37 AM CST Yes we can do that. Please let her know she may need to come in for lab work at some point. PORT SUPPORT MANAGER documented in this encounter Plan of Treatment [...] Rule Out 11/02/2022 11/02/2022 11/02/2022 1:59 PM PASSPORT SUPPORT MANAGER Assessment Noted Time PHQ-9 Depression Total Score: 12 020 11:09 AM CDT documented as of this encounter Care Teams Roller Man Relationship Specialty Start Date End Date Joycelyn Gomez MD PCP - General INTERNAL MEDICINE 07/28/20 11/28/22 [place] [address] [address] PCP - General Nurse Practitioner Family 12/29/2212/23 Joycelyn Gomez MD PCP - General INTERNAL MEDICINE 11/29/22 12/28/22 Uma Tomlin FNP-BC [address] [address] PCP - General 01/02/23 01/30/23 [place] [address] [address], [address] [place] [address] PCP - General Nurse Practitioner Family 01/31/2310/25 [place] [address] [place] [address] PCP - General Physician Turf Manager Medical 11/12/23 documented as of this encounter
--- OUTSIDE RECORDS SUMMARY | 2025-05-08 16:16 | XMS_ITS | Encounter Summary ---
Author Organization [facility] Address [address] [place] [address] Care Team Providers Care Drum Tester Name Role Phone Judy Tse NP Primary Care Provider [phone] Uriah Sevilla Primary Care Provider [phone] Encounter Details Date Type Department Care Team (Late st Contact Info) Description 03/01/2023 [employer] Message Enc [facility] Medical Group Family & Internal Medicine [facility] [address] [place] [address] Chris, [facility] Provider Reschedule appt on 03/21/23 Social History Tobacco Use Types Packs/Day Years [...] Sex Assigned at Female 11/20/2024 9:16 AM LIFE SCIENTISTS Legal Sex Female 7:00 PM CDT Gender Identity Not on file Sexual Orientation Not on file COVID-19 Exposure Response Date Recorded In the last 10 days, have yo u been in contact with someone who was confirmed or suspected to have Coronavirus/COVID-19? No / Unsure 02/13/2023 3:57 PM CDT documented as of this encounter Plan of Treatment Not on file documented as of this encounter Visit Diagnoses Not on filedocumented in this encounter Additional Health Concerns Assessment Noted Time PHQ-9 Depression Total Score: 1 02/01/20 22 9:49 AM CDT documented as of this encounter Care Teams Drum Tester Relationship Specialty [place] [address] [address], [address] [place] [address] PCP - General Nurse Practitioner Family 01/31/2310/25 [place] [address] [place] [address] PCP - General Physician Weft Straightener Medical 11/12/23 documented as of this encounter
--- OUTSIDE RECORDS SUMMARY | 2025-05-08 16:16 | XMS_ITS | Encounter Summary ---
Author Organization [facility] Address [address] [place] [address] Care Team Providers Care Operations Lieutenant Name Role Phone Shanelle Funk NURSING HOME DIRECTOR Primary Care Provider Joycelyn Truong MD Primary Care Provider + [phone] Arielle Haynes NP Primary Care Provider + [phone] Joycelyn Gomez MD Primary Care Provider + [phone] Uma Tomlin [facility] Primary Care Provider + Judy Tse NURSING HOME DIRECTOR Primary Care Provider [phone] Uriah Sevilla Primary Care Provider [phone] Encounter Details Date Type Department Care Team (Late st Contact Info) Description 07/10/2016 Abstract [facility] CONVERSION [address] [place] [address] , Generic Conversion, Social History Tobacco Use Types Packs/Day Years Used Date Smoking Tobacco: Never Assessed Comments Unknown Sex and Gender Information Value Date Recorded Sex Assigned at Female 11/20/2024 9:16 AM INFORMATION SYSTEMS SECURITY ANALYST Legal Sex Female 7:00 PM CDT Gender [...] Rule Out 11/02/2022 11/02/2022 11/02/2022 1:59 PM INFORMATION SYSTEMS SECURITY ANALYST documented as of this encounter Care Teams Operations Lieutenant Relationship Specialty Start Date End Date Shanelle Funk NP PCP - General 07/04/16 07/27/20 Joycelyn Gomez MD PCP - General INTERNAL MEDICINE 07/28/20 11/28/22 [place] [address] [place], [place] [id number] PCP - General Nurse Practitioner Family 12/29/2212/23 Joycelyn Gomez MD PCP - General INTERNAL MEDICINE 11/29/22 12/28/22 Uma Tomlin FNP-NEREIDA [address] [place], [place] [id number] PCP - General 01/02/23 01/30/23 [place] [address], [address] [place] [address] PCP - General Nurse Practitioner Family 01/31/2310/25 [place] [address] [place] [address] PCP - General Physician Business Sales Consultant Medical 11/12/23 documented as of this encounter
--- OUTSIDE RECORDS SUMMARY | 2025-05-08 16:16 | XMS_ITS | Encounter Summary ---
Author Organization [facility] Address [address] [place] [address] Care Team Providers Care English Teacher Name Role Phone Joycelyn Gomez MD Primary Care Provider + [phone] Arielle Haynes NP Primary Care Provider + [phone] Joycelyn Gomez MD Primary Care Provider + [phone] Uma Tomlin [facility] Primary Care Provider + Judy Tse NP Primary Care Provider [phone] Uriah Sevilla Primary Care Provider [phone] Encounter Details Date Type Department Care Team (Late st Contact Info) Description 11/20/2022 MyChart Message Enc [facility] Family & Internal Medicine - [place] [id number] [place] [address] [place] [id number] [place] [address] Refill Social History Tobacco Use Types Packs/Day Years [...] Sex Assigned at Female 11/20/2024 9:16 AM MANAGER CULTURE Legal Sex Female 7:00 PM CDT Gender Identity Not on file Sexual Orientation Not on file COVID-19 Exposure Response Date Recorded In the last 10 days, have yo u been in contact with someone who was confirmed or suspected to have Coronavirus/COVID-19? No / Unsure 11/02/2022 1:26 PM MANAGER CULTURE documented as of this encounter Plan of Treatment Not on file documented as of this encounter Visit Diagnoses Not on filedocumented in this encounter Additional Health Concerns Assessment Noted Time PHQ-9 Depression Total Score: 1 02/01/20 22 9:49 AM CDT documented as of this encounter Care Teams English Teacher Relationship Specialty Start Date End Date Joycelyn Gomez MD PCP - General INTERNAL MEDICINE 07/28/20 11/28/22 [place] [address] [address] [place] [address] PCP - General Nurse Practitioner Family 12/29/2212/23 Joycelyn Gomez MD PCP - General INTERNAL MEDICINE 11/29/22 12/28/22 Uma Tomlin FNP- [address] [place] [address] PCP - General 01/02/23 01/30/23 [place] [address] [place] [address] PCP - General Nurse Practitioner Family 01/31/2310/25 [place] [address] [place] [address] PCP - General Physician Rn Production Medical 11/12/23 documented as of this encounter
--- OUTSIDE RECORDS SUMMARY | 2025-05-08 16:16 | XMS_ITS | Encounter Summary ---
Author Organization [facility] Address [address] [place] [address] Care Team Providers Care Grader Operator Name Role Phone Judy Tse NP Primary Care Provider [phone] Uriah Sevilla Primary Care Provider [phone] Encounter Details Date Type Department Care Team (Late st Contact Info) Description 03/21/2023 MyChart Message Enc [facility] [address] [place], [place] [phone] [place] Provider Air Quality Message Social History Tobacco Use Types Packs/Day Years [...] Sex Assigned at Female 11/20/2024 9:16 AM STUDENT SUCCESS COACH Legal Sex Female 7:00 PM CDT Gender Identity Not on file Sexual Orientation Not on file documented as of this encounter Plan of Treatment Not on file documented as of this encounter Visit Diagnoses Not on filedocumented in this encounter Additional Health Concerns Assessment Noted Time PHQ-9 Depression Total Score: 1 02/01/20 22 9:49 AM CDT documented as of this encounter Care Teams Grader Operator Relationship Specialty [place] [address], [address] [place] [address] PCP - General Nurse Practitioner Family 01/31/2310/25 [place] [address] [place] [address] PCP - General Physician Substitute Teacher Medical 11/12/23 documented as of this encounter
--- OUTSIDE RECORDS SUMMARY | 2025-05-08 16:16 | XMS_ITS | Encounter Summary ---
Author Organization [facility] Address [address] [place] [address] Care Team Providers Care Packaging Engineer Name Role Phone Shanelle Funk WEIGHT CHECKER Primary Care Provider Joycelyn Truong MD Primary Care Provider + [phone] Arielle Haynes NP Primary Care Provider + [phone] Joycelyn Gomez MD Primary Care Provider + [phone] Uma Tomlin [facility] Primary Care Provider + Judy Tse WEIGHT CHECKER Primary Care Provider [phone] Uriah Sevilla Primary Care Provider [phone] Encounter Details Date Type Department Care Team (Late st Contact Info) Description 09/14/2016 Abstract [facility] CONVERSION [address] [place] [address] , Generic Conversion, Social History Tobacco Use Types Packs/Day Years Used Date Smoking Tobacco: Never Assessed Comments Unknown Sex and Gender Information Value Date Recorded Sex Assigned at Female 11/20/2024 9:16 AM PRODUCTION ANALYST Legal Sex Female 7:00 PM CDT [...] Rule Out 11/02/2022 11/02/2022 11/02/2022 1:59 PM PRODUCTION ANALYST documented as of this encounter Care Teams Packaging Engineer Relationship Specialty Start Date End Date Shanelle Funk NP PCP - General 07/04/16 07/27/20 Joycelyn Gomez MD PCP - General INTERNAL MEDICINE 07/28/20 11/28/22 [place] [address] [place], [place] [id number] PCP - General Nurse Practitioner Family 12/29/2212/23 Joycelyn Gomez MD PCP - General INTERNAL MEDICINE 11/29/22 12/28/22 Uma Tomlin FNP-NEREIDA [address] [place], [place] [id number] PCP - General 01/02/23 01/30/23 [place] [address] [place] [address] PCP - General Nurse Practitioner Family 01/31/2310/25 [place] [address] [place] [address] PCP - General Physician E Commerce Specialist Medical 11/12/23 documented as of this encounter
--- OUTSIDE RECORDS SUMMARY | 2025-05-08 16:16 | XMS_ITS | Encounter Summary ---
Author Organization [facility] Address [address] [place] [address] Care Team Providers Care Senior Actuarial Analyst Name Role Phone Joycelyn Gomez MD Primary Care Provider + [phone] Arielle Haynes NP Primary Care Provider + [phone] Joycelyn Gomez MD Primary Care Provider + [phone] Uma Tomlin [facility] Primary Care Provider + Judy Tse NP Primary Care Provider [phone] Uriah Sevilla Primary Care Provider [phone] Encounter Details Date Type Department Care Team (Late st Contact Info) Description 05/20/[address] [facility] Family & Internal Medicine [address] [address] [facility] Social History Tobacco Use Types Packs/Day Years [...] Sex Assigned at Female 11/20/2024 9:16 AM HEALTH CARE CONSULTANT Legal Sex Female 7:00 PM CDT [...] Rule Out 11/02/2022 11/02/2022 11/02/2022 1:59 PM HEALTH CARE CONSULTANT Assessment Noted Time PHQ-9 Depression Total Score: 0 05/04/20 21 1:11 PM CDT documented as of this encounter Care Teams Senior Actuarial Analyst Relationship Specialty Start Date End Date Joycelyn Gomez MD PCP - General INTERNAL MEDICINE 07/28/20 11/28/22 [place] [address] [address] PCP - General Nurse Practitioner Family 12/29/2212/23 Joycelyn Gomez MD PCP - General INTERNAL MEDICINE 11/29/22 12/28/22 Uma Tomlin, GINO- [address] [place] [address] PCP - General 01/02/23 01/30/23 [place] [address] [address], [address] [address] PCP - General Nurse Practitioner Family 01/31/2310/25 [place] [address] [place] [address] PCP - General Physician Labor Expediter Medical 11/12/23 documented as of this encounter
--- NOTE | 2025-05-08 16:19 | PC.NURSE ---
Dr Plunkett informed of small vaginal budge that was noted. MD will be in to examine patient.
--- NOTE | 2025-05-08 16:33 | PC.NURSE ---
Dr Plunkett at bedside, sterile spec performed and a gentle exam was performed per MD. Patient reassured with the finding per Dr Plunkett. OK to dc patient home.
[2025-05-08 16:36] VITALS: BP 130/79; PULSE 90
--- NOTE | 2025-05-11 10:34 | PM.OBTRLD ---
OB - Triage/Final Diagnosis Visit Information Comments/Additional reasons for admission: I have assessed the risk for this patient, Anamika Crowley, and determined that she would benefit from observation care. Final Diagnosis (1) Swelling of vulva: Code(s): N90.89 - Other specified noninflammatory disorders of vulva and perineum Status: Acute
== END 2025-05-08 16:46 | disposition home or self-care (01) ==
PROVIDERS: Admitting Provider Obstetrics & Gynecology; PCP Family Medicine; Visit Provider Obstetrics & Gynecology
DX: O26.892 Other specified pregnancy related conditions, second trimester (principal); N90.89 Other specified noninflammatory disorders of vulva and perineum; Z3A.19 19 weeks gestation of pregnancy
CPT/HCPCS: G0378; G0379

== ENCOUNTER 2025-09-16 21:58 | Observation (INO) | payer OTHER, SELFPAY ==
--- OUTSIDE RECORDS SUMMARY | 2025-09-15 16:09 | XMS_ITS | Encounter Summary ---
Author Organization [facility] Address [address] [place] [address] Care Team Providers Care Shoe Shanker Name Role Phone Uriah Sevilla Primary Care Provider [phone] Reason for Visit * Reason Comments Moon's Palsy * Physical Medicine (Routine) - Authorized Specialty Diagnoses / Procedures Referred By Jose fisher Referred To Contact PHYSICAL THERAPY / [facility] Physical Therapy Diagnoses Moon's palsy Procedures OFFICE/OUTPATIENT NEW LOW MDM 30-44 MINUTES OFFICE/OUTPATIENT NEW MODERATE MDM 45 MINUTES OFFICE/OUTPT VISIT,NEW,LEVL V OFFICE/OUTPT VISIT,EST,LEVL III OFFICE/OUTPT VISIT,EST,LEVL IV OFFICE/OUTPATIENT ESTABLISHED HIGH MDM 40 [place] [address] [place] [address] Phone: tel: fax: [facility] [address] [place] [address] Phone: tel: fax: Referral ID Status Reason Start Date Expiration Date Visits Requested Visits Authorized [id number] Authorized Physical Therapy 08/31/2025 08/31/2026 99 99 Encounter Details Date Type Department Care Team (Late st Contact Info) Description 09/15/2025 4:09 PM [facility] Hospital Encounter [facility] [address] [place] [address] [place] [address] [place], [place] [phone] [place] [address] [place], [place] [id number] Moon's Palsy Social History Tobacco Use Types Packs/Day Years [...] Estimated Date of Delivery Comme nts Yes 09/25/2025 Sex and Gender Information Value Date Recorded Sex Assigned at Female 11/20/2024 9:16 AM HARDWOOD FLOOR LAYER Legal Sex Female 7:00 PM CDT Gender Identity Not on file Sexual Orientation Not on file documented as of this encounter Progress Notes * Nya Valdivia, PT - 09/15/2025 4:15 PM CST Physical Therapy Visit Note: Patient Name: Anamika Crowley Diagnosis: Moon's palsy (primary encounter diagnosis) SUBJECTIVE Therapy Visit Start Time: 1613 Stop Time: 1640 Time Calculation (min): 27 min Treatment Day: 4 Total Approved Visits: ins unlimited / PT POC up to 8 Therapy Plan of Care: 1-2 x week for up to 8 visits Current Therapy Orders: eval and rx Diagnosis: Moon's Palsy Referring Provider: MIGUEL Lopez Subjective Note: States she is getting a jabbing pain in her L ear at times now and still has some pain in herjaw and into the neck every once in a while. States she still has some difficulty drinking from a bottle. States her blurry vision is gone and no issues with her eye when outside now. Compliance to Home Program: compliant Reported Falls since last visit: no Medications changes since last visit : no OBJECTIVE Treatment provided today: Objective Observation: Patient able to close L eye completely, but not quite as tightly as R. Her mouth is symmetrical at rest, but still slight decrease in lifting L corner of mouth when smiling. Neuromuscular Re-education - 21221 Number of Minutes - 44190: 27 Intervention: point stim to L facial motor points while patient is performing facial movements including raising eyebrows, closing eyes, flaring nostrils, trying to smile. Home Exercise Program Current Home Exercise Program: continue Education Was Education Provided: Yes Topic: HEP Recipient: Patient Method: Verbal Response: Asked questions, Verbalized understanding, Demonstrates adequately Barriers: None ASSESSMENT Assessment Note: Anamika is continuing to show good progress with improvement in activation of all L facial muscles. She continues to have difficulty drinking and will continue to benefit from skilled PT to address her ongoing deficits. 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 Total Time Total Time in Minutes: 27 Timed Code Treatment Minutes : 27 WOOD FLOOR LAYER documented in this encounter Plan of Treatment Upcoming Encounters Date Type Department Care Team (Late st Contact Info) Description 09/25/2025 8:30 AM HARDWOOD FLOOR LAYER Appointment [facility] [address] [place] [address] [place] [address] [place] [address] [place] [address] [place] [address] documented as of this encounter Visit Diagnoses Diagnosis Moon's palsy- Primary documented in this encounter Additional Health Concerns Assessment Noted Time PHQ-9 Depression Total Score: 1 02/01/20 22 9:49 AM CDT documented as of this encounter Care Teams Shoe Shanker Relationship Specialty Start [place] [address] [place] [address] PCP - General PHYSICIAN DIE KEEPER 08/31/25 documented as of this encounter
--- NOTE | 2025-09-16 23:40 | OBADM ---
This patient, Anamika Crowley, admitted to the OB room Labor/Delivery/Recovery 105 for observation at 2158. Patient/family oriented to hospital policies and general routines including ID bracelet, bed and alarms, visiting hours, pain management, procedures, bathroom and other care routines, personal items, smoking policy, room service/diet, and visiting hours. Patient/Family are encouraged to report perceived risks to care and to ask questions if they do not understand what they are told or what they should do.
--- OUTSIDE RECORDS SUMMARY | 2025-09-16 23:40 | XMS_ITS | Encounter Summary ---
Author Organization [facility] Address [address] [place] [address] Care Team Providers Care Meteorological Equipment Repairer Name Role Phone Uriah Sevilla Primary Care Provider [phone] Mu Plunkett MD Primary Care Provider [phone] Uriah Sevilla Primary Care Provider [phone] Encounter Details Date Type Department Care Team (Late st Contact Info) Description 11/20/2024 Episencial Message Enc [facility] Family & Internal Medicine [facility] [address] [place] [address] [facility] Provider Appt Social History Tobacco [...] Sex Assigned at Female 11/20/2024 9:16 AM BLENDER MACHINE OPERATOR Legal Sex Female 7:00 PM CDT Gender Identity Not on file Sexual Orientation Not on file documented as of this encounter Plan of Treatment Upcoming Encounters Date Type Department Care Team (Late st Contact Info) Description 09/25/2025 8:30 AM BLENDER MACHINE OPERATOR Appointment [facility] [address] [place] [address] [place] [address] [place] [address] [place] [address] [place] [address] documented as of this encounter Visit Diagnoses Not on filedocumented in this encounter Additional Health Concerns Assessment Noted Time PHQ-9 Depression Total Score: 1 02/01/20 22 9:49 AM CDT documented as of this encounter Care Teams Meteorological Equipment Repairer Relationship Specialty Start [place] [address] [place] [address] PCP - General Physician Head Field Hockey Coach Medical 11/12/23 08/24/25 Mu Plunkett MD [address] [place] [address] PCP - General OBGYN 08/25/25 08/30/25 [place] [address] [place] [address] PCP - General PHYSICIAN BRICK AND TILE MAKING MACHINE OPERATOR 08/31/25 documented as of this encounter
--- OUTSIDE RECORDS SUMMARY | 2025-09-16 23:41 | XMS_ITS | Continuity of Care Document ---
Author Organization [facility] Address [address] [place] [address] Care Team Providers Care Steam Box Tender Name Role Phone FRANTZ ZHANG Primary Care Provider [phone] Assessment No assessment recorded. Plan of Treatment Reminders Order Date Submit Date Provider Last Modified By Organization Details Last Modified Time Details Appointments OB ROUTINE 2024 10:00A Areli CARRION MD Not available Not available Not available OB ROUTINE 2024 09:15A Areli CARRION MD Not available Not available Not available Lab None recorded . Referral None recorded . Procedures None recorded . Surgeries None recorded . Imaging None recorded . Medication Orders None recorded . Patient TargetsNo targets recorded. Patient InstructionsNo instructions recorded. Reason for Referral None Reported. Results Created Date Observation Date Name Description Value Unit Range Abnormal Flag Note LastModifiedBy Organization Detail LastModifiedTime 03/10/20 25 03/10/2025 [UNIT Y] ANEUP LOIDY NIPT fraction 6.6% normal Not Available Alice villarreal [address], [place], [address], 03/10/2025 07:42:34 03/10/20 25 03/10/2025 [UNIT Y] ANEUP LOIDY NIPT sex chromosome aneuploidy NOT DETECT ED normal Not Available Pilar monson [address], [place], [address], 03/10/2025 07:42:34 03/10/20 25 03/10/2025 [UNIT Y] ANEUP LOIDY NIPT monosomy X LOW RISK <1 in 10,000 normal Not Available [facility] [address], [place], [address], 03/10/2025 07:42:34 03/10/20 25 03/10/2025 [UNIT Y] ANEUP LOIDY NIPT trisomy 13 LOW RISK <1 in 10,000 normal Not Available [facility] [address], [place], [address], 03/10/2025 07:42:34 03/10/20 25 03/10/2025 [UNIT Y] ANEUP LOIDY NIPT trisomy 18 LOW RISK <1 in 10,000 normal Not Available [facility] [address], [place], [address], 03/10/2025 07:42:34 03/10/20 25 03/10/2025 [UNIT Y] ANEUP LOIDY NIPT trisomy 21 LOW RISK <1 in 10,000 normal Not Available [facility] [address], [place], [address], 03/10/2025 07:42:34 03/10/20 25 03/10/2025 [UNIT Y] ANEUP LOIDY NIPT sex FEMALE normal Not Available [facility] [address], [place], [address], 03/10/2025 07:42:34 03/10/20 25 03/10/2025 [UNIT Y] ANEUP LOIDY NIPT gestation SINGLE TON normal Not Available [facility] [address], [place], [address], 03/10/2025 07:42:34 03/10/20 25 03/10/2025 [UNIT Y] ANEUP LOIDY NIPT for detailed report, see pdf See PDF normal Not Available [facility] [address], [place], [address], 03/10/2025 07:42:34 03/13/20 25 03/13/2025 [UNIT Y] ANGELITO JAZMÍN Arzate sickle cell disease/beta -thalassemia /hemoglobino pathies carrier screen NEGATI VE normal Not Available [facility] [address], [place], [address], 03/13/2025 20:27:17 03/13/20 25 03/13/2025 [UNIT Y] ANGELITO JAZMÍN Arzate alpha-thalas semia carrier screen NEGATI VE normal Not Available [facility] [address], [place], [address], 03/13/2025 20:27:17 03/13/20 25 03/13/2025 [UNIT Y] ANGELITO JAZMÍN Arzate cystic fibrosis carrier screen NEGATI VE normal Not Available [facility] [address], [place], [address], 03/13/2025 20:27:17 03/13/20 25 03/13/2025 [UNIT Y] ANGELITO JAZMÍN Arzate spinal muscular atrophy carrier screen NEGATI VE 2 SMN1 copies , SNP not presen t normal Not Available [facility] [address], [place], [address], 03/13/2025 20:27:17 03/13/20 25 03/13/2025 [UNIT Y] ANGELITO JAZMÍN Arzate for detailed report, see pdf See PDF normal Not Available [facility] [address], [place], [address], 03/13/2025 20:27:17 03/04/20 25 03/04/2025 HEPAT ITIS C ANTIB BRODERICK ROLANDO Arzate, REFLE X TO CONFI RMATI ON hepatitis C antibody Non-re active non-re active Antib odies to HCV Not Detec carrington, does not exclu de the possi bilit y of expos ure to HCV. Not Available [facility] (Lab) [address], [place], [address], 03/05/2025 10:19:41 06/08/13 2503/04/2025 HEPAT ITIS B SURFA CE ANTIG EN hepatitis B surface antigen Non-re active non-re active This assay was perfo rmed using [employer] ratio n reage nts and test kits. Value s obtai neelima with other assay metho ds or kits canno t be used inter curran eably . Not Available [facility] (Lab) [address], [place], [address], 03/05/2025 10:19:41 03/04/2003/04/2025 HIV 1/2 ANTIG EN/AN TIBOD Y, REFLE X CONFI RMATI ON HIV antigen/anti body Nonrea ctive nonrea ctive HIV-1 antig en and HIV-1 /HIV- 2 antib odies were not detec carrington. No labor atory evide nce of HIV infec tion. Not Available [facility] (Lab) [address], [place], [address], 03/05/2025 10:19:41 03/04/20 25 03/04/2025 RUBEL LA IGG ANTIB BRODERICK, QUANT rubella antibodies, IgG Reacti ve reacti ve Not Available [facility] (Lab) [address], [place], [address], 03/05/2025 10:19:42 03/04/20 25 03/04/2025 RUBEL LA IGG ANTIB BRODERICK, QUANT rubella antibodies, IgG quant 14.3 IU/mL >=10 Non-r eacti ve (Non- Immun e) <10 IU/mL React gisele (Immu ne) > or = 10 IU/mL Not Available [facility] (Lab) [address], [place], [address], 03/05/2025 10:19:42 03/04/2003/04/2025 CBC W/DIF F WBC 9.6 10'3/ uL 3.5-10 .5 Not Available [facility] (Lab) [address], [place], [address], 03/05/2025 10:19:42 03/04/20 25 03/04/2025 CBC W/DIF F RBC 3.79 10'6/ uL (based on docume nted legal sex) 3.80-5 .20 low Not Available [facility] (Lab) [address], [place], [address], 03/05/2025 10:19:42 03/04/20 25 03/04/2025 CBC W/DIF F HGB 12.3 g/dL (based on docume nted legal sex) 11.6-1 5.4 Not Available [facility] (Lab) [address], [place], [address], 03/05/2025 10:19:42 03/04/20 25 03/04/2025 CBC W/DIF F HCT 38.4 % (based on docume nted legal sex) 34.0-4 5.0 Not Available [facility] (Lab) [address], [place], [address], 03/05/2025 10:19:42 03/04/20 25 03/04/2025 CBC W/DIF F MCV 101.3 fL 80.0-9 9.0 high Not Available [facility] (Lab) [address], [place], [address], 03/05/2025 10:19:42 03/04/20 25 03/04/2025 CBC W/DIF F MCH 32.5 pg 27.0-3 4.0 Not Available [facility] (Lab) [address], [place], [address], 03/05/2025 10:19:42 03/04/20 25 03/04/2025 CBC W/DIF F MCHC 32.0 g/dL 32.0-3 5.5 Not Available [facility] (Lab) [address], [place], [address], 03/05/2025 10:19:42 03/04/20 25 03/04/2025 CBC W/DIF F RDW 14.6 % 11.0-1 5.0 Not Available [facility] (Lab) [address], [place], [address], 03/05/2025 10:19:42 03/04/20 25 03/04/2025 CBC W/DIF F plt 245 10'3/ uL 150-40 0 Not Available [facility] (Lab) [address], [place], [address], 03/05/2025 10:19:42 03/04/20 25 03/04/2025 CBC W/DIF F MPV 10.8 fL 8.8-12 .1 Not Available [facility] (Lab) [address], [place], [address], 03/05/2025 10:19:42 03/04/20 25 03/04/2025 CBC W/DIF F NRBC's 0.0 % 0.0 Not Available [facility] (Lab) [address], [place], [address], 03/05/2025 10:19:42 03/04/20 25 03/04/2025 CBC W/DIF F absolute NRBCs 0.0 10'3/ uL no refere nce range establ ished Not Available [facility] (Lab) [address], [place], [address], 03/05/2025 10:19:42 03/04/20 25 03/04/2025 CBC W/DIF F neutrophils 66.6 % 34.0-7 3.0 Not Available [facility] (Lab) [address], [place], [address], 03/05/2025 10:19:42 03/04/20 25 03/04/2025 CBC W/DIF F lymphocytes 21.0 % 15.0-5 0.0 Not Available [facility] (Lab) [address] [place], [address], 03/05/2025 10:19:42 03/04/20 25 03/04/2025 CBC W/DIF F monocytes 8.9 % 1.0-15 .0 Not Available [facility] (Lab) [address], [place], [address], 03/05/2025 10:19:42 03/04/20 25 03/04/2025 CBC W/DIF F eosinophils 2.5 % 0.0-8. 0 Not Available [facility] (Lab) [address], [place], [address], 03/05/2025 10:19:42 03/04/20 25 03/04/2025 CBC W/DIF F basophils 0.7 % 0.0-2. 0 Not Available [facility] (Lab) [address], [place], [address], 03/05/2025 10:19:42 03/04/20 25 03/04/2025 CBC W/DIF F immature granulocytes 0.3 % no define d refere nce range Immat ure Granu locyt es (IG) repre sents autom ated enume ratio n of Metam yeloc ytes, Myelo cytes and Promy elocy jeaneth when IG is < 5%. Blast s are not inclu ded in IG and repor carrington separ ately if prese nt. Not Available [facility] (Lab) [address], [place], [address], 03/05/2025 10:19:42 03/04/20 25 03/04/2025 CBC W/DIF F absolute neutrophils 6.4 10'3/ uL 1.5-8. 0 Not Available [facility] (Lab) [address], [place], [address], 03/05/2025 10:19:42 03/04/20 25 03/04/2025 CBC W/DIF F absolute lymphocytes 2.0 10'3/ uL 1.0-4. 0 Not Available [facility] (Lab) [address], [place], [address], 03/05/2025 10:19:42 03/04/20 25 03/04/2025 CBC W/DIF F absolute monocytes 0.9 10'3/ uL 0.2-1. 0 Not Available [facility] (Lab) [address], [place], [address], 03/05/2025 10:19:42 03/04/2003/04/2025 CBC W/DIF F absolute eosinophils 0.2 10'3/ uL 0.0-0. 6 Not Available [facility] (Lab) [address], [place], [address], 03/05/2025 10:19:42 03/04/2003/04/2025 CBC W/DIF F absolute basophils 0.1 10'3/ uL 0.0-0. 3 Not Available [facility] (Lab) [address], [place], [address], 03/05/2025 10:19:42 03/04/2003/04/2025 CBC W/DIF F absolute immature granulocytes 0.0 10'3/ uL 0.00-0 .10 Refer ence range s for nonbi nary/ inter sex or unspe cifie d gende r patie nts have not been estab lishe d. Pleas e refer [facility] table for range s estab lishe d for cisge nder patie nts and evalu ate in the clini mariano alonzo xt of the indiv idual patie nt: https :[email or web address] rodriguez book. nm.or g/gen derx Not Available [facility] (Lab) [address], [place], [address], 03/05/2025 10:19:42 03/04/2003/04/2025 TYPE/ RH/SC REEN ABO/Rh type A POS Not Available [facility] (Lab) [address], [place], [address], 03/05/2025 10:19:42 03/04/2003/04/2025 TYPE/ RH/SC REEN antibody screen NEG Not Available [facility] (Lab) [address], [place], [address], 03/05/2025 10:19:42 03/04/2003/04/2025 TYPE/ RH/SC REEN exp date 2024 23:59 Not Available [facility] (Lab) [address], [place], [address], 03/05/2025 10:19:42 03/04/2003/04/2025 HEMOG LOBIN A1C hemoglobin A1C 4.8 % 4.0-5. 6 The Ameri can [facility] jeaneth [employer] iatio n recom mends that a prima ry goal of thera py shoul d be a HBA1C of < 7% and that physi cians shoul d reeva luate the treat ment regim en in patie nts with HBA1C value s consi stent ly > 8%. <5.7% Isela l 5.7 - 6.4% Incre ased risk for diabe jeaneth >=6.5 % Diagn ostic of diabe jeaneth <7.0% Goal of thera py >8.0% Actio n sugge sted Not Available [facility] (Lab) [address], [place], [address], 03/05/2025 10:19:43 03/04/20 25 03/04/2025 RPR SCREE N, REFLE X TITER /CONF IRMAT ION RPR qualitative Nonrea ctive nonrea ctive Not Available [facility] (Lab) [address], [place], [address], 03/05/2025 10:19:43 03/04/2003/04/2025 CT/GC AND TRICH OMONA S VAGIN ISABEL (RRNA ), URINE chlamydia trachomatis, PCR Negati ve negati ve Not Available [facility] (Lab) [address], [place], [address], 03/06/2025 00:29:18 03/04/2003/04/2025 CT/GC AND TRICH OMONA S VAGIN ISABEL (RRNA ), URINE neisseria gonorrhoeae, PCR Negati ve negati ve Not Available [facility] (Lab) [address], [place], [address], 03/06/2025 00:29:18 03/04/20 25 03/04/2025 CT/GC AND TRICH OMONA S VAGIN ISABEL (RRNA ), URINE trichomonas vaginalis ribosomal RNA (rrna) Negati ve negati ve Not Available [facility] (Lab) [address], [place], [address], 03/06/2025 00:29:18 03/04/2003/04/2025 CULTU RE: URINE result report SEE RESULT S BELOW Test: Cultu re: Urine Speci men Sourc e: Urine Voide d Speci men Type: Urine Speci men Date: 2024 1056 Resul t Date: 2024 2325 Resul t Statu s: Final resul t Abnor mal: No Resul ting Lab: [facility] [address] [facility] [address] Tel: CULTU RE ----- ----- ----- --- Cultu re resul t (>=3 organ isms prese nt) indic ates possi ble conta minat ion. Repea t cultu re if sympt oms indic ate. Not Available [facility] (Lab) [address], [place], [address], 03/06/2025 00:29:19 03/19/2003/19/2025 CULTU RE: URINE result report SEE RESULT S BELOW Test: Cultu re: Urine Speci men Sourc e: Urine Voide d Speci men Type: Urine Speci men Date: 2024 1709 Resul t Date: 2024 0322 Resul t Statu s: Final resul t Abnor mal: No Resul ting Lab: [facility] [address] [place] [facility] [place] [address] Tel: CULTU RE ----- ----- ----- --- No growt h in 1 day (dete ction level of 10,00 0 colon ies / ml.) Not Available [facility] (Lab) [address], [place], [address], 03/21/2025 04:28:02 03/19/2003/19/2025 CULTU RE: URINE result report SEE RESULT S BELOW Test: Cultu re: Urine Speci men Sourc e: Urine Voide d Speci men Type: Urine Speci men Date: 2024 Resul t Date: 2024 Resul t Statu s: Final resul t Abnor mal: No Resul ting Lab: [facility] [address] [facility] [address] Tel: CULTU RE ----- ----- ----- --- Cultu re resul t (>=3 organ isms prese nt) indic ates possi ble conta minat ion. Repea t cultu re if sympt oms indic ate. Not Available [facility] (Lab) [address], [place], [address], 03/21/2025 22:45:05 07/08/20 25 07/08/2025 HEMOG LOBIN (HGB) HGB 11.1 g/dL (based on docume nted legal sex) 11.6-1 5.4 low Not Available [facility] (Lab) [address], [place], [address], 07/09/2025 11:13:10 07/08/20 25 07/08/2025 HEMAT OCRIT (HCT) HCT 34.0 % (based on docume nted legal sex) 34.0-4 5.0 Not Available [facility] (Lab) [address], [place], [address], 07/09/2025 11:13:11 07/08/20 25 07/08/2025 GTT - GESTA TARIQ L SCREE N, ACOG OB glucose, 1 hour screen 171 mg/dL 70-135 high Not Available [facility] (Lab) [address], [place], [address], 07/09/2025 11:13:11 07/08/20 25 07/08/2025 HIV 1/2 ANTIG EN/AN TIBOD Y, REFLE X CONFI RMATI ON HIV antigen/anti body Nonrea ctive nonrea ctive HIV-1 antig en and HIV-1 /HIV- 2 antib odies were not detec carrington. No labor atory evide nce of HIV infec tion. Not Available [facility] (Lab) [address], [place], [address], 07/09/2025 11:13:12 07/08/20 25 07/08/2025 RPR SCREE N, REFLE X TITER /CONF IRMAT ION RPR qualitative Nonrea ctive nonrea ctive Not Available [facility] (Lab) [address], [place], [address], 07/09/2025 11:13:12 03/04/20 25 03/03/2025 US, miquele cisco, follo w-up No observ ation record ed. [email or web address] S[address], [place], [address], 03/07/2025 21:37:38 03/04/20 25 03/03/2025 US, miquele cisco, 1st trime ster No observ ation record ed. [email or web address] Sindy [address], [place], [address], 03/09/2025 12:28:15 03/19/20 25 03/19/2025 US, obste tric, nucha l trans lucen cy No observ ation [facility] ed[facility] [address], [place], [address], 03/19/2025 17:52:27 03/19/20 25 03/19/2025 US, obste tric, 1st trime ster No observ ation record ed. [facility] [address], [place], [address], 03/19/2025 17:52:36 03/19/20 25 03/19/2025 US, obste tric, follo w-up No observ ation record ed. [email or web address] [address], [place], [address], 03/23/2025 09:26:34 04/06/20 25 04/06/2025 imagi ng/di agnos tic resul t No observ ation record ed. JIMENA [address], [place], [address], 04/13/2025 12:13:32 05/13/20 25 05/13/2025 US, obste tric, 2nd or 3rd trime ster No observ ation record ed. [email or web address] [facility] [address], [place], [address], 05/13/2025 18:22:31 05/13/20 25 05/13/2025 US, obste tric, 2nd or 3rd trime ster No observ ation record ed. [email or web address] [address], [place], [address], 05/13/2025 16:32:33 08/07/20 25 08/07/2025 US, obste tric, follo w-up No observ ation record ed. [facility] [address], [place], [address], 08/07/2025 13:46:32 08/07/20 25 08/07/2025 US, obste tric, follo w-up No observ ation record ed. [email or web address] S[address] [address], [address], 08/24/2025 11:16:22 Result Notes None recorded. Problems Name Problem SNOMED Code Status Onset Date Resolution Date Notes Provider Name and Address Organization Details Recorded Time 03979036 Active 2024 [facility] 09:55:04 Multigravida of advanced maternal age 155670628 Active 2024 AMI CARRION MD [address], [place], [address], [facility] 5 15:47:41 Problem Notes None recorded. Procedures Surgical History Date Name Laterality Status Provider Name and Address Organization Details Recorded Time 5 Date of Last Pap Smear completed [facility] 03/04/2025 09:47:11 6 Colonoscopy completed [facility] 03/04/2025 09:54:07 7 Dilation and Curettage completed [facility] 03/04/2025 09:54:13 Imaging Results None recorded. Procedure Notes None recorded. Medical Equipment None Reported. Allergies Allergen ID Allergen Name Allergen Category Reaction Reaction Severity Criticality Documentation Date Start Date Code Code System Note Provider Name and Address Organization Details Recorded Time 86422 tramadol medicatio n Not available Not available Not available 03/04/2025 45760 RxNorm Jackelin [facility] 5 09:46:55 36964 nickel sulfate Not available rash Not available low 09/02/20252015 53015 RxNorm Not Available jimena - External Data Service - prod 5 02:54:16 Medications Name Sig Start Date Stop Date Status Note LastModified by Organization Details LastModified Time sumatriptan 100 mg tablet TAKE ONE TABLET BY MOUTH AT ONSET OF MIGRAINE. IF SYMPTOMS PERSIST, A SECOND DOSE MAY BE TAKEN IN 2 HOURS. DO NOT EXCEED 2 DOSES IN A 24 HOUR PERIOD, UNLESS OTHERWISE INSTRUCTE D BY YOUR PHYSICIAN active Not Available Not Available No t Available amoxicillin 875 mg tablet TAKE 1 TABLET BY MOUTH TWICE DAILY FOR 10 DAYS 05/13 completed Not Available Not Available Not Available fluticasone propionate 50 mcg/actuati on nasal spray,suspe nsion USE 2 SPRAY(S) IN EACH NOSTRIL TWICE DAILY FOR 3 DAYS THEN 2 SPRAYS ONCE DAILY active Not Available Not Available No t Available amoxicillin 875 mg-potassiu m clavulanate 125 mg tablet TAKE 1 TABLET BY MOUTH TWICE DAILY 03/04 completed Not Available Not Available Not Available Systane Nighttime 94 %-3 % eye ointment APPLY A SMALL STRIP TO THE INNER EYELIDS FOUR TIMES DAILY active Not Available Not Available No t Available Linzess 145 mcg capsule TAKE 1 CAPSULE BY MOUTH ONCE DAILY IN THE MORNING BEFORE BREAKFAST TAKE ON AN EMPTY STOMACH AT LEAST 30 MINUTES PRIOR TO THE FIRST MEAL OF THE DAY. SWALLOW WHOLE. DO NOT OPEN CAPSULE OR CHEW active Not Available Not Available No t Available Gummies active Not Available Not Available Not Available Mounjaro 7.5 mg/0.5 mL subcutaneou s pen injector ADMINISTE R 7.5 MG UNDER THE SKIN 1 TIME A WEEK 03/04 completed Not Available Not Available Not Available Mounjaro 10 mg/0.5 mL subcutaneou s pen injector ADMINISTE R 10 MG UNDER THE SKIN 1 TIME EVERY WEEK FOR DIABETES 03/04 completed Not Available Not Available Not Available Vitals Date Recorded Body weight Systolic And Diastolic Provider Name and Address Organization Details Last Updated DateTime 07/08/2025 51973.96867 g 112/73 mm[Hg] Gloria Ramos [facility] 07/08/2025 10:02:57 Social History Question Answer Notes LastModified by Organizat ion Details LastModified Time Do You Have An Advance Directive? No Information n ot available 03/04/2025 How Many Years Have You Consumed Alcohol? 20 Information not available 03/04/2025 Are You Blind Or Do You Have Difficulty Seeing? No Information n ot available 03/04/2025 What Is Your Level Of Caffeine Consumption? Occasional Information not available 03/04/2025 How Much Tobacco Do You Chew? None Information not available 03/04/2025 In The 14 Days Before Symptom Onset, Have You Had Close Contact With A Laboratory-confirm ed COVID-19 While That Case Was Ill? No Information n ot available 03/04/2025 In The 14 Days Before Symptom Onset, Have You Had Close Contact With A Person Who Is Under Investigation For COVID-19 While That Person Was Ill? No Information not available 03/04/2025 Have You Been To An Area Known To Be High Risk For COVID-19? No Information not available 03/04/2025 Are You Deaf Or Do You Have Serious Difficulty Hearing? No Information not available 03/04/2025 What Type Of Diet Are You Following? REGULAR Information n ot available 03/04/2025 What Is The Highest Grade Or Level Of School You Have Completed Or The Highest Degree You Have Received? [id number] Information not available 03/04/2025 Are There Any Guns Present In Your Home? Yes Information not available 03/04/2025 Do You Use Protection During Sex? No Information not available 03/04/2025 Do You Use Your Seat Belt Or Car Seat Routinely? Yes Information not available 03/04/2025 Do You Have Smoke And Carbon Monoxide Detectors In Your Home? Yes Information not available 03/04/2025 How Much Tobacco Do You Smoke? No Information not available 03/04/2025 Do You Use Sunscreen Routinely? No Information not available 03/04/2025 Have You Used IV Drugs? No Information not available 03/04/2025 Sex: Unknown Functional Status Question Answer Note LastModified by Organizat ion Details LastModified Time Do you use any illicit or recreational drugs? No Information not available 03/04/2025 What is your level of alcohol consumption? None Information not available 03/04/2025 Are you able to walk independently without assistance or assistive devices? YESWOREST Information not available 03/04/2025 What is your occupation? [employer] Information not available 03/04/2025 What is your exercise level? Occasional Information not available 03/04/2025 Mental Status Question Answer Note LastModified by Organization D etails LastModified Time Do you feel stressed (tense, restless, nervous, or anxious, or unable to sleep at night)? [id number] Information not available 03/04/2025 Family History Relationship Description Onset Age of this Age Resolved Age Notes LastModified by Organization Details LastModified Time Father Diabetes mellitus Not available 2024 09:47:00 Mother Diabetes mellitus Not available 2024 09:47:00 Medical History Condition Response Allergies (Food, seasonal, environmental ) N Other N Drug/Latex Allergies/Reactions N Blood Transfusion N Breast Cancer N Dermatologic Disorders N Lung Disease N Defects or Inherited Disease N Breast Problem N Gestational Diabetes N Hematologic disorders N Anesthesia Complications N History of STI N Deep Vein Thrombosis N Polycystic ovary syndrome Y Anxiety Disorder N Autoimmune disease N Arthritis N Polyps N Infertility N Acid Reflux (GERD) N History of abnormal pap N Cancer N Varicosities N Stroke N Neurologic/Epilepsy N Endometriosis N High Cholesterol N Fibromyalgia N Headaches N Kidney Disease N Heart Problems N Thyroid Problems N Kidney or Bladder Problems N GI Problems Y Eating Disorder N Anemia N Art (IVF or FET) N Psychiatric Illness N Ovarian Cancer N Diabetes N Pulmonary (TB, Asthma) N Hepatitis/Liver Disease N No Past Medical History N Eczema N Urinary Tract Infection N Abuse/Domestic Violence N Asthma N Trauma/Violence N Depression/ depression N Heart Disease N Pre-Eclampsia N Hypertension N Osteoporosis N Thrombophilias N Gynecological History Statement/Question Response Abnormal Pap N Flow Moderate Date of LMP 12/20/2024 On BCP's at Conception? Y N Was last menstrual period normal Y STIs/STDs N HPV Vaccine N Duration of Flow (days) 5 Current Control Method Are cycles usually normal Y Date of Last Colonoscopy Frequency of Cycle (Q days) 28 Sexually Active? Y Menses Monthly Y Age of first menstrual cycle 13 Date of Last Pap Smear 02/05/2025 Sexual Problems? N LMP Definite N Obstetrics History GPAL:G 4 P 2 0 1 2 Type Value Full Term 2 Spontaneous 1 Living 2 Total 4 Past Encounters Encounter ID Performer Location Encounter Start Date Encounter Closed Date Diagnosis/Indication Diagnosis SNOMED-CT Code Diagnosis ICD10 Code Diagnosis IMO Codes Diagnosis Note [id number] AMI CARRION MD [facility] [address] [address] 06/10/2025 10:31:02 06/10/2025 11:16:29 screening 681682545 Z36.89 Multigravi da of advanced maternal age 995416434 O09.529 [id number] Gestation period, 24 weeks [id number] Z3A.24 [id number] AMI CARRION MD [facility] [address] [address] 07/08/2025 09:52:05 07/08/2025 11:35:05 Multigravida of advanced maternal age 750865351 O09.523 [id number] Gestation period, 28 weeks [id number] Z3A.28 [id number] Health Concerns Section Related Observation LastModified by Organization Detai ls LastModified Time None Recorded Concern Status LastModified by Organization Details LastModified Time None Recorded Payers Encounter Date Sequence Insurance Name Policy Number Policy Delgado Covered Member ID Delgado Member ID Guarantor Name 07/08/2025 1 [facility] Anamika Crowley [id number] Anamika Crowley Notes Date Note Type Note Provider Name and Address Organization Details Recorded Time 07/08/2025 text/html Generic HPI TemplateReported by Patient AMI CARRION MD [address], [place], [address], [facility] 07/08/2025 11:34:41 OBGyn Episode Ob Episode Information Episode Created Date Number of Fetuses Patient Bloodtype Patient rh Status Prepregnancy Weight lbs Domestic Partner Domestic Partner Phone Father Name Equal Opportunity Assistant Status 03/04/20 25 1 A Positive 174 Micah OPEN Fetus Data First Name Last Name Admitted to NICU Weight (g) Sex Living Outcome Pediatric Complications Fetus ID Race Codes Race Delivery Type [id number] Problems Problem Notes Problem Name Start Date End Date Resolution Snomed Code Not e Multigravida of advanced maternal age 0603/04/2025 [id number] Teddy Calculation Initial Teddy Date Initial Exam Date Initial Exam Provider Initial Ultrasound Date Last Menstrual Period Date Ultra Sound Weeks Gestation 09/26/2025 03/04/2025 03/03/2025 12/20/2024 11 Eighteen To Twenty Week Teddy Update Ultra Sound Date Fundal Height At Umbil Quickening Date Ultra Sound Latest Weeks Gestation Final Teddy Confirmed By Final Teddy Confirmed Date Final Teddy Date Ultra Sound Latest Days Gestation 0 [email or web address] 03/04/2025 09/26/19 26 0 Pre-diane Flowsheet Flowsheet Date 03/04/2025 Block Score Blood Edema Fundus Height Fundus Units Glucose Ketones Leukocytes Nitrite Labor Signs Protein Cervic Dilation Cervic Effacement Cervic Station Type Weight in lbs Pre/Post Dialysis Refused Weight 174.933199819654 BP Diastolic BP Location Tested BP Systolic BP Type 77 L arm 115 sitting Fetus Heart Rate Present Fetus Movement A No Comments Patient presents to [facility] care. No nausea or cramping. Hx of early 2nd trimester loss, required D&C. Son with left clubfoot and pyelectasis. Patient is AMA, discussed increased risks of chromosomal abnormalities. Recommend NT/NB scan in 2 weeks and NIPT. Will draw today with new OB labs. RTC 2 weeks for routine care. Flowsheet Date 03/19/2025 Block Score Blood Edema Fundus Height Fundus Units Glucose Ketones Leukocytes Nitrite Labor Signs Protein Cervic Dilation Cervic Effacement Cervic Station Type Weight in lbs Pre/Post Dialysis Refused BP Diastolic BP Location Tested BP Systolic BP Type Fetus Heart Rate Present Fetus Movement Comments Flowsheet Date 03/19/2025 Block Score Blood Edema Fundus Height Fundus Units Glucose Ketones Leukocytes Nitrite Labor Signs Protein Cervic Dilation Cervic Effacement Cervic Station Type Weight in lbs Pre/Post Dialysis Refused 183.354029670996 BP Diastolic BP Location Tested BP Systolic BP Type 78 L arm 120 sitting Fetus Heart Rate Present A 144 Fetus Movement A No Comments no complaints, no problems, routine care, no contractions, no vaginal bleeding, no loss of fluid, no cramping Flowsheet Date 04/06/2025 Block Score Blood Edema Fundus Height Fundus Units Glucose Ketones Leukocytes Nitrite Labor Signs Protein Cervic Dilation Cervic Effacement Cervic Station Type Weight in lbs Pre/Post Dialysis Refused BP Diastolic BP Location Tested BP Systolic BP Type Fetus Heart Rate Present Fetus Movement Comments Flowsheet Date 04/13/2025 Block Score Blood Edema Fundus Height Fundus Units Glucose Ketones Leukocytes Nitrite Labor Signs Protein Cervic Dilation Cervic Effacement Cervic Station none Type Weight in lbs Pre/Post Dialysis Refused Weight 197.581712627504 BP Diastolic BP Location Tested BP Systolic BP Type 80 L arm 123 sitting Fetus Heart Rate Present A 155 Fetus Movement A No Comments No cramping or bleeding. Min imal movement thus far. Overall feeling well. Low risk female on NIPT! Discussed anatomy US for next visit. RTC 4 weeks. Flowsheet Date 05/13/2025 Block Score Blood Edema Fundus Height Fundus Units Glucose Ketones Leukocytes Nitrite Labor Signs Protein Cervic Dilation Cervic Effacement Cervic Station Type Weight in lbs Pre/Post Dialysis Refused BP Diastolic BP Location Tested BP Systolic BP Type Fetus Heart Rate Present Fetus Movement Comments Flowsheet Date 05/13/2025 Block Score Blood Edema Fundus Height Fundus Units Glucose Ketones Leukocytes Nitrite Labor Signs Protein Cervic Dilation Cervic Effacement Cervic Station Type Weight in lbs Pre/Post Dialysis Refused Weight 195.355562697705 BP Diastolic BP Location Tested BP Systolic BP Type 87 122 sitting Fetus Heart Rate Present A Present Fetus Movement A Yes Comments Good movement. No cram ping or bleeding. Discussed colostrum collection starting at 35 weeks. Anatomy complete and normal, EFW 70%. Plan for repeat at 32 weeks for AMA. RTC 4 weeks. Flowsheet Date 06/10/2025 Block Score Blood Edema Fundus Height Fundus Units Glucose Ketones Leukocytes Nitrite Labor Signs Protein Cervic Dilation Cervic Effacement Cervic Station Type Weight in lbs Pre/Post Dialysis Refused Weight 212.603232129111 BP Diastolic BP Location Tested BP Systolic BP Type 72 L arm 110 sitting Fetus Heart Rate Present A 155 Fetus Movement A Yes Comments Having some issues with slee ping, discussed positioning and unisom. Good movement. No cramping or bleeding. Discussed GCT and labs for next visit. planning vasectomy. Discussed Mounjaro during , not studied and may decrease milk supply. Recommend waiting for established supply, at least 6 months PP to restart. RTC 4 weeks. Flowsheet Date 07/08/2025 Block Score Blood Edema Fundus Height Fundus Units Glucose Ketones Leukocytes Nitrite Labor Signs Protein Cervic Dilation Cervic Effacement Cervic Station Type Weight in lbs Pre/Post Dialysis Refused 219.832106349166 BP Diastolic BP Location Tested BP Systolic BP Type 73 L arm 112 sitting Fetus Heart Rate Present A 140 Fetus Movement A Yes Comments Good movement. No cram ping or bleeding. Having some swelling in b/l hands plus tingling. Discussed wrist braces. GCT and labs today. Discussed tdap and RSV vaccine. RTC 2 weeks. Flowsheet Date 07/22/2025 Block Score Blood Edema Fundus Height Fundus Units Glucose Ketones Leukocytes Nitrite Labor Signs Protein Cervic Dilation Cervic Effacement Cervic Station Type Weight in lbs Pre/Post Dialysis Refused 223.291127965578 BP Diastolic BP Location Tested BP Systolic BP Type 77 L arm 113 sitting Fetus Heart Rate Present A 145 Present Fetus Movement A Yes Comments +FM, OP gave spinning babies rec, tdap and flu done, plan rsv at 32 weeks, precautions and education f/u 2 weeks Flowsheet Date 08/07/2025 Block Score Blood Edema Fundus Height Fundus Units Glucose Ketones Leukocytes Nitrite Labor Signs Protein Cervic Dilation Cervic Effacement Cervic Station Type Weight in lbs Pre/Post Dialysis Refused BP Diastolic BP Location Tested BP Systolic BP Type Fetus Heart Rate Present Fetus Movement Comments Flowsheet Date 08/07/2025 Block Score Blood Edema Fundus Height Fundus Units Glucose Ketones Leukocytes Nitrite Labor Signs Protein Cervic Dilation Cervic Effacement Cervic Station Type Weight in lbs Pre/Post Dialysis Refused 231.685368257492 BP Diastolic BP Location Tested BP Systolic BP Type 77 L arm 117 sitting Fetus Heart Rate Present A 151 Fetus Movement A Yes Comments Doing well, good movem ent. No bleeding, some BH contractions. Vertex! EFW 58%. Needs RSV. Discussed preadmission. RTC 2 weeks. Flowsheet Date 08/17/2025 Block Score Blood Edema Fundus Height Fundus Units Glucose Ketones Leukocytes Nitrite Labor Signs Protein Cervic Dilation Cervic Effacement Cervic Station 1cm 30% -3 Type Weight in lbs Pre/Post Dialysis Refused Weight 232.9179412002 BP Diastolic BP Location Tested BP Systolic BP Type 78 L arm 126 sitting Fetus Heart Rate Present A 141 Present Fetus Movement A Yes Comments no complaints, no problems, routine care, no contractions, no vaginal bleeding, no loss of fluid, no cramping Flowsheet Date 09/02/2025 Block Score Blood Edema Fundus Height Fundus Units Glucose Ketones Leukocytes Nitrite Labor Signs Protein Cervic Dilation Cervic Effacement Cervic Station 1cm 50% -3 Type Weight in lbs Pre/Post Dialysis Refused Weight 231.037661514553 BP Diastolic BP Location Tested BP Systolic BP Type 81 L arm 128 sitting Fetus Heart Rate Present A 155 Fetus Movement A Yes Comments 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 Also prescribed valtrex by PCP. Starting therapy next week. Intermittent contractions. No bleeding or leakage of fluid. Good movement. GBS collected. RTC 1 week. Flowsheet Date 09/07/2025 Block Score Blood Edema Fundus Height Fundus Units Glucose Ketones Leukocytes Nitrite Labor Signs Protein Cervic Dilation Cervic Effacement Cervic Station 2cm 50% -3 Type Weight in lbs Pre/Post Dialysis Refused Weight 229.779498107868 BP Diastolic BP Location Tested BP Systolic BP Type 80 L arm 121 sitting Fetus Heart Rate Present A 155 Fetus Movement A Yes Comments Good movement. Intermi ttent contractions. No bleeding. GBS negative. SVE 2cm. Membrane sweep next week. RTC 1 week. Menstrual History Last Menstrual Date Menses Monthly On Bcp Conception Prior Menses Frequency Hcg Plus Date Menarche Onset Age 0312/20/2024 true 29 Delivery Information Delivery Date Delivery Type Labor Anesthesia Weeks Gestation Incision Type Labor Labor Length Hrs Delivered By Post Complications Tubal Sterilization Discharge Date Comments Discharge Information Feeding Method Contraceptive Method Maternal HG B and HCT Levels
--- OUTSIDE RECORDS SUMMARY | 2025-09-16 23:41 | XMS_ITS | Encounter Summary ---
Author Organization [facility] Address [address] [place] [address] Care Team Providers Care Retail Business Analyst Name Role Phone Shanelle Funk DIALYSIS SOCIAL WORKER Primary Care Provider Joycelyn Truong MD Primary Care Provider + [phone] Arielle Haynes DIALYSIS SOCIAL WORKER Primary Care Provider + [phone] Joycelyn Gomez MD Primary Care Provider [phone] Uma Tomlin [facility] Primary Care Provider + Judy Tse NP Primary Care Provider [phone] Uriah Sevilla Primary Care Provider [phone] Mu Plunkett MD Primary Care Provider [phone] Uriah Sevilla Primary Care Provider [phone] Encounter Details Date Type Department Care Team (Latest Contact Info) Description 05/24/2018 Abstract [facility] Huang Lopez MD Social History Tobacco Use Types Packs/Day Years Used Date Smoking Tobacco: Never Assessed Comments Unknown Sex and Gender Information Value Date Recorded Sex Assigned at Female 11/20/2024 9:16 AM HOSPITAL CARRIER Legal Sex Female 7:00 PM CDT Gender Identity Not on file Sexual Orientation Not on file documented as of this encounter Plan of Treatment Upcoming Encounters Date Type Department Care Team (Late st Contact Info) Description 09/25/2025 8:30 AM HOSPITAL CARRIER Appointment [facility] [address] [place] [address] [place] [address] [facility] [place] [address] [place] [address] [place] [address] documented as of this encounter Visit Diagnoses [...] Rule Out 11/02/2022 11/02/2022 11/02/2022 1:59 PM HOSPITAL CARRIER documented as of this encounter Care Teams Retail Business Analyst Relationship Specialty Start Date End Date Shanelle Funk NP PCP - General 07/04/16 07/27/20 Joycelyn Gomez MD PCP - General INTERNAL MEDICINE 07/28/20 11/28/22 [place] [address] [facility] [address] [address] PCP - General Nurse Practitioner Family 12/29/2212/23 Joycelyn Gomez MD PCP - General INTERNAL MEDICINE 11/29/22 12/28/22 Uma Tomlin, [facility] [address] [place] [address] PCP - General 01/02/23 01/30/23 [place] [address] [address], [address] [place] [address] PCP - General Nurse Practitioner Family 01/31/2310/25 [place] [address] [place] [address] PCP - General Physician [facility] 11/12/23 08/24/25 Mu Plunkett MD [address] [place] [address] PCP - General OBGYN 08/25/25 08/30/25 [place] [address] [facility] [address] PCP - General PHYSICIAN BAR HOSTESS 08/31/25 documented as of this encounter
--- OUTSIDE RECORDS SUMMARY | 2025-09-16 23:41 | XMS_ITS | Continuity of Care Document ---
Author Organization [facility] Address [address] [place] [address] Care Team Providers Care Gynaecological Oncologist Name Role Phone FRANTZ ZHANG Primary Care Provider Assessment No assessment recorded. Plan of Treatment [...] Not Available Alice villarreal [address], [place], [address], 03/10/2025 07:42:34 03/10/20 25 03/10/2025 [UNIT Y] ANEUP LOIDY NIPT sex chromosome aneuploidy NOT DETECT ED normal Not Available Pilar monson [address], [place], [address], 03/10/2025 07:42:34 03/10/20 25 03/10/2025 [UNIT Y] ANEUP LOIDY NIPT monosomy X LOW RISK <1 in 10,000 normal Not Available [facility] [address], [place], [address], 03/10/2025 07:42:34 03/10/20 25 03/10/2025 [UNIT Y] ANEUP LOIDY NIPT trisomy 13 LOW RISK <1 in 10,000 normal Not Available [facility] [address], [place], [address], 03/10/2025 07:42:34 03/10/20 25 03/10/2025 [UNIT Y] ANEUP LOIDY NIPT trisomy 18 LOW RISK <1 in 10,000 normal Not Available [facility] [address], [place], [address], 03/10/2025 07:42:34 03/10/20 25 03/10/2025 [UNIT Y] ANEUP LOIDY NIPT trisomy 21 LOW RISK <1 in 10,000 normal Not Available [facility] [address], [place], [address], 03/10/2025 07:42:34 03/10/20 25 03/10/2025 [UNIT Y] ANEUP LOIDY NIPT sex FEMALE normal Not Available [facility] [address], [place], [address], 03/10/2025 07:42:34 03/10/20 25 03/10/2025 [UNIT Y] ANEUP LOIDY NIPT gestation SINGLE TON normal Not Available [facility] [address], [place], [address], 03/10/2025 07:42:34 03/10/20 25 03/10/2025 [UNIT Y] ANEUP LOIDY NIPT for detailed report, see pdf See PDF normal Not Available [facility] [address], [place], [address], 03/10/2025 07:42:34 03/13/20 25 03/13/2025 [UNIT Y] ANGELITO JAZMÍN Arzate sickle cell disease/beta -thalassemia /hemoglobino pathies carrier screen NEGATI VE normal Not Available [facility] [address], [place], [address], 03/13/2025 20:27:17 03/13/20 25 03/13/2025 [UNIT Y] ANGELITO JAZMÍN Arzate alpha-thalas semia carrier screen NEGATI VE normal Not Available [facility] [address], [place], [address], 03/13/2025 20:27:17 03/13/20 25 03/13/2025 [UNIT Y] ANGELITO JAZMÍN Arzate cystic fibrosis carrier screen NEGATI VE normal Not Available [facility] [address], [place], [address], 03/13/2025 20:27:17 03/13/20 25 03/13/2025 [UNIT Y] ANGELITO JAZMÍN Arzate spinal muscular atrophy carrier screen NEGATI VE 2 SMN1 copies , SNP not presen t normal Not Available [facility] [address], [place], [address], 03/13/2025 20:27:17 03/13/20 25 03/13/2025 [UNIT Y] ANGELITO JAZMÍN Arzate for detailed report, see pdf See PDF normal Not Available [facility] [address], [place], [address], 03/13/2025 20:27:17 03/04/20 25 03/04/2025 HEPAT ITIS C ANTIB BRODERICK ROLANDO Arzate, REFLE X TO CONFI RMATI ON hepatitis C antibody Non-re active non-re active Antib odies to HCV Not Detec carrington, does not exclu de the possi bilit y of expos ure to HCV. Not Available [facility] (Lab) [address], [place], [address], 03/05/2025 10:19:41 06/08/13 2503/04/2025 HEPAT ITIS B SURFA CE ANTIG EN hepatitis B surface antigen Non-re active non-re active This assay was perfo rmed using [employer] ratio n reage nts and test kits. Value s obtai neelima with other assay metho ds or kits canno t be used inter curran eably . Not Available [facility] (Lab) [address], [place], [address], 03/05/2025 10:19:41 03/04/2003/04/2025 HIV 1/2 ANTIG EN/AN TIBOD Y, REFLE X CONFI RMATI ON HIV antigen/anti body Nonrea ctive nonrea ctive HIV-1 antig en and HIV-1 /HIV- 2 antib odies were not detec carrington. No labor atory evide nce of HIV infec tion. Not Available [facility] (Lab) [address], [place], [address], 03/05/2025 10:19:41 03/04/20 25 03/04/2025 RUBEL LA IGG ANTIB BRODERICK, QUANT rubella antibodies, IgG Reacti ve reacti ve Not Available [facility] (Lab) [address], [place], [address], 03/05/2025 10:19:42 03/04/20 25 03/04/2025 RUBEL LA IGG ANTIB BRODERICK, QUANT rubella antibodies, IgG quant 14.3 IU/mL >=10 Non-r eacti ve (Non- Immun e) <10 IU/mL React gisele (Immu ne) > or = 10 IU/mL Not Available [facility] (Lab) [address], [place], [address], 03/05/2025 10:19:42 03/04/2003/04/2025 CBC W/DIF F WBC 9.6 10'3/ uL 3.5-10 .5 Not Available [facility] (Lab) [address], [place], [address], 03/05/2025 10:19:42 03/04/20 25 03/04/2025 CBC W/DIF F RBC 3.79 10'6/ uL (based on docume nted legal sex) 3.80-5 .20 low Not Available [facility] (Lab) [address], [place], [address], 03/05/2025 10:19:42 03/04/20 25 03/04/2025 CBC W/DIF F HGB 12.3 g/dL (based on docume nted legal sex) 11.6-1 5.4 Not Available [facility] (Lab) [address], [place], [address], 03/05/2025 10:19:42 03/04/20 25 03/04/2025 CBC W/DIF F HCT 38.4 % (based on docume nted legal sex) 34.0-4 5.0 Not Available [facility] (Lab) [address], [place], [address], 03/05/2025 10:19:42 03/04/20 25 03/04/2025 CBC W/DIF F MCV 101.3 fL 80.0-9 9.0 high Not Available [facility] (Lab) [address], [place], [address], 03/05/2025 10:19:42 03/04/20 25 03/04/2025 CBC W/DIF F MCH 32.5 pg 27.0-3 4.0 Not Available [facility] (Lab) [address], [place], [address], 03/05/2025 10:19:42 03/04/20 25 03/04/2025 CBC W/DIF F MCHC 32.0 g/dL 32.0-3 5.5 Not Available [facility] (Lab) [address], [place], [address], 03/05/2025 10:19:42 03/04/20 25 03/04/2025 CBC W/DIF F RDW 14.6 % 11.0-1 5.0 Not Available [facility] (Lab) [address], [place], [address], 03/05/2025 10:19:42 03/04/20 25 03/04/2025 CBC W/DIF F plt 245 10'3/ uL 150-40 0 Not Available [facility] (Lab) [address], [place], [address], 03/05/2025 10:19:42 03/04/20 25 03/04/2025 CBC W/DIF F MPV 10.8 fL 8.8-12 .1 Not Available [facility] (Lab) [address], [place], [address], 03/05/2025 10:19:42 03/04/20 25 03/04/2025 CBC W/DIF F NRBC's 0.0 % 0.0 Not Available [facility] (Lab) [address], [place], [address], 03/05/2025 10:19:42 03/04/20 25 03/04/2025 CBC W/DIF F absolute NRBCs 0.0 10'3/ uL no refere nce range establ ished Not Available [facility] (Lab) [address], [place], [address], 03/05/2025 10:19:42 03/04/20 25 03/04/2025 CBC W/DIF F neutrophils 66.6 % 34.0-7 3.0 Not Available [facility] (Lab) [address], [place], [address], 03/05/2025 10:19:42 03/04/20 25 03/04/2025 CBC W/DIF F lymphocytes 21.0 % 15.0-5 0.0 Not Available [facility] (Lab) [address] [place], [address], 03/05/2025 10:19:42 03/04/20 25 03/04/2025 CBC W/DIF F monocytes 8.9 % 1.0-15 .0 Not Available [facility] (Lab) [address], [place], [address], 03/05/2025 10:19:42 03/04/20 25 03/04/2025 CBC W/DIF F eosinophils 2.5 % 0.0-8. 0 Not Available [facility] (Lab) [address], [place], [address], 03/05/2025 10:19:42 03/04/20 25 03/04/2025 CBC W/DIF F basophils 0.7 % 0.0-2. 0 Not Available [facility] (Lab) [address], [place], [address], 03/05/2025 10:19:42 03/04/20 25 03/04/2025 CBC W/DIF [...] separ ately if prese nt. Not Available [facility] (Lab) [address], [place], [address], 03/05/2025 10:19:42 03/04/20 25 03/04/2025 CBC W/DIF F absolute neutrophils 6.4 10'3/ uL 1.5-8. 0 Not Available [facility] (Lab) [address], [place], [address], 03/05/2025 10:19:42 03/04/20 25 03/04/2025 CBC W/DIF F absolute lymphocytes 2.0 10'3/ uL 1.0-4. 0 Not Available [facility] (Lab) [address], [place], [address], 03/05/2025 10:19:42 03/04/20 25 03/04/2025 CBC W/DIF F absolute monocytes 0.9 10'3/ uL 0.2-1. 0 Not Available [facility] (Lab) [address], [place], [address], 03/05/2025 10:19:42 03/04/2003/04/2025 CBC W/DIF F absolute eosinophils 0.2 10'3/ uL 0.0-0. 6 Not Available [facility] (Lab) [address], [place], [address], 03/05/2025 10:19:42 03/04/2003/04/2025 CBC W/DIF F absolute basophils 0.1 10'3/ uL 0.0-0. 3 Not Available [facility] (Lab) [address], [place], [address], 03/05/2025 10:19:42 03/04/2003/04/2025 CBC W/DIF F absolute immature granulocytes 0.0 10'3/ uL 0.00-0 .10 Refer ence range s for nonbi nary/ inter sex or unspe cifie d gende r patie nts have not been estab lishe d. [facility]as [facility] for range s estab lishe d for cisge nder patie nts and evalu ate in the clini mariano alonzo xt of the indiv idual patie nt: https ://priyanka rodriguez book. nm.or g/gen derx Not Available [facility] (Lab) [address], [place], [address], 03/05/2025 10:19:42 03/04/2003/04/2025 TYPE/ RH/SC REEN ABO/Rh type A POS Not Available [facility] (Lab) [address], [place], [address], 03/05/2025 10:19:42 03/04/2003/04/2025 TYPE/ RH/SC REEN antibody screen NEG Not Available [facility] (Lab) [address], [place], [address], 03/05/2025 10:19:42 03/04/2003/04/2025 TYPE/ RH/SC REEN exp date 2024 23:59 Not Available [facility] (Lab) [address], [place], [address], 03/05/2025 10:19:42 03/04/2003/04/2025 HEMOG LOBIN A1C hemoglobin [...] - 6.4% Incre ased risk for diabe jeaneht >=6.5 % Diagn ostic of diabe jeaneth <7.0% Goal of thera py >8.0% Actio n sugge sted Not Available [facility] (Lab) [address], [place], [address], 03/05/2025 10:19:43 03/04/20 25 03/04/2025 RPR SCREE N, REFLE X TITER /CONF IRMAT ION RPR qualitative Nonrea ctive nonrea ctive Not Available [facility] (Lab) [address], [place], [address], 03/05/2025 10:19:43 03/04/2003/04/2025 CT/GC AND TRICH OMONA S VAGIN ISABEL (RRNA ), URINE chlamydia trachomatis, PCR Negati ve negati ve Not Available [facility] (Lab) [address], [place], [address], 03/06/2025 00:29:18 03/04/2003/04/2025 CT/GC AND TRICH OMONA S VAGIN ISABEL (RRNA ), URINE neisseria gonorrhoeae, PCR Negati ve negati ve Not Available [facility] (Lab) [address], [place], [address], 03/06/2025 00:29:18 03/04/20 25 03/04/2025 CT/GC AND TRICH OMONA S VAGIN ISABEL (RRNA ), URINE trichomonas vaginalis ribosomal RNA (rrna) Negati ve negati ve Not Available [facility] (Lab) [address], [place], [address], 03/06/2025 00:29:18 03/04/2003/04/2025 CULTU RE: URINE result report SEE RESULT S BELOW Test: Cultu re: Urine Speci men Sourc e: Urine Voide d Speci men Type: Urine Speci men Date: 2024 1056 Resul t Date: 2024 2325 Resul t Statu s: Final resul t Abnor mal: No Resul ting Lab: [facility] [address] [facility] [address] Tel: CULTU RE ----- ----- ----- --- Cultu re resul t (>=3 organ isms prese nt) indic ates possi ble conta minat ion. Repea t cultu re if sympt oms indic ate. Not Available [facility] (Lab) [address], [place], [address], 03/06/2025 00:29:19 03/19/2003/19/2025 CULTU RE: URINE result report SEE RESULT S BELOW Test: Cultu re: Urine Speci men Sourc e: Urine Voide d Speci men Type: Urine Speci men Date: 2024 1709 Resul t Date: 2024 0322 Resul t Statu s: Final resul t Abnor mal: No Resul ting Lab: [facility] [address] [place] [facility] [place] [address] Tel: CULTU RE ----- ----- ----- --- No growt h in 1 day (dete ction level of 10,00 0 colon ies / ml.) Not Available [facility] (Lab) [address], [place], [address], 03/21/2025 04:28:02 03/19/2003/19/2025 CULTU RE: URINE result report SEE RESULT S BELOW Test: Cultu re: Urine Speci men Sourc e: Urine Voide d Speci men Type: Urine Speci men Date: 2024 Resul t Date: 2024 Resul t Statu s: Final resul t Abnor mal: No Resul ting Lab: [facility] [address] [facility] [address] Tel: CULTU RE ----- ----- ----- --- Cultu re resul t (>=3 organ isms prese nt) indic ates possi ble conta minat ion. Repea t cultu re if sympt oms indic ate. Not Available [facility] (Lab) [address], [place], [address], 03/21/2025 22:45:05 07/08/20 25 07/08/2025 HEMOG LOBIN (HGB) HGB 11.1 g/dL (based on docume nted legal sex) 11.6-1 5.4 low Not Available [facility] (Lab) [address], [place], [address], 07/09/2025 11:13:10 07/08/20 25 07/08/2025 HEMAT OCRIT (HCT) HCT 34.0 % (based on docume nted legal sex) 34.0-4 5.0 Not Available [facility] (Lab) [address], [place], [address], 07/09/2025 11:13:11 07/08/20 25 07/08/2025 GTT - GESTA TARIQ L SCREE N, ACOG OB glucose, 1 hour screen 171 mg/dL 70-135 high Not Available [facility] (Lab) [address], [place], [address], 07/09/2025 11:13:11 07/08/2007/08/2025 HIV 1/2 ANTIG EN/AN TIBOD Y, REFLE X CONFI RMATI ON HIV antigen/anti body Nonrea ctive nonrea ctive HIV-1 antig en and HIV-1 /HIV- 2 antib odies were not detec carrington. No labor atory evide nce of HIV infec tion. Not Available [facility] (Lab) [address], [place], [address], 07/09/2025 11:13:12 07/08/2007/08/2025 RPR SCREE N, REFLE X TITER /CONF IRMAT ION RPR qualitative Nonrea ctive nonrea ctive Not Available [facility] (Lab) [address], [place], [address], 07/09/2025 11:13:12 07/16/2007/16/2025 GTT - GESTA TARIQ L, 3 HOUR, ACOG glucose, fasting acog 80 mg/dL 70-94 Not Available [facility] (Lab) [address] [place], [address], 07/17/2025 05:25:34 07/16/20 25 07/16/2025 GTT - GESTA TARIQ L, 3 HOUR, ACOG glucose, 1 hour acog 175 mg/dL 70-179 Not Available [facility] (Lab) [address] [place], [address], 07/17/2025 05:25:34 07/16/20 25 07/16/2025 GTT - GESTA TARIQ L, 3 HOUR, ACOG glucose, 2 hour acog 154 mg/dL 70-154 Not Available [facility] (Lab) [address] [place] [facility] [place], [address], 07/17/2025 05:25:34 07/16/20 25 07/16/2025 GTT - GESTA TARIQ L, 3 HOUR, ACOG glucose, 3 hour acog 72 mg/dL 70-139 Not Available [facility] (Lab) [address], [place], [address], 07/17/2025 05:25:34 03/04/20 25 03/03/2025 US, obste tric, follo w-up No observ ation record ed. [email or web address] [address], [place], [address], 03/07/2025 21:37:38 03/04/20 25 03/03/2025 US, obste tric, 1st trime ster No observ ation record ed. [email or web address] [address] [address], [place], [address], 03/09/2025 12:28:15 03/19/20 25 03/19/2025 US, obste tric, nucha l trans lucen cy No observ ation record ed. [facility] [address], [place], [address], 03/19/2025 17:52:27 03/19/20 25 03/19/2025 US, obste tric, 1st trime ster No observ ation record ed. [facility] [address], [place], [address], 03/19/2025 17:52:36 03/19/20 25 03/19/2025 US, obste tric, follo w-up No observ ation record ed. [email or web address] [address], [place], [address], 03/23/2025 09:26:34 04/06/20 25 04/06/2025 imagi ng/di agnos tic resul t No observ ation record ed. JIMENA S[address], [place], [address], 04/13/2025 12:13:32 05/13/20 25 05/13/2025 US, obste tric, 2nd or 3rd trime ster No observ ation record ed. [email or web address] [place] [address], [place], [address], 05/13/2025 18:22:31 05/13/20 25 05/13/2025 US, obste tric, 2nd or 3rd trime ster No observ ation record ed. [email or web address] [address], [place], [address], 05/13/2025 16:32:33 08/07/20 25 08/07/2025 US, obste tric, follo w-up No observ ation [facility] ed. [facility] [address], [place], [address], 08/07/2025 13:46:32 08/07/20 25 08/07/2025 US, obste tric, follo w-up No observ ation record ed. [email or web address] [address], [place], [address], 08/24/2025 11:16:22 Result Notes None recorded. Problems Name Problem SNOMED Code Status Onset Date Resolution Date Notes Provider Name and Address Organization Details Recorded Time 78248927 Active 2024 Jackelin duvall [place] - [facility] 5 09:55:04 Multigravida of advanced maternal age 845647664 Active 2024 AMI CARRION MD [address], [place], [address], [facility] 5 15:47:41 Problem Notes None recorded. Procedures Surgical History Date Name Laterality Status Provider Name and Address Organization Details Recorded Time 5 Date of Last Pap Smear completed [facility] 03/04/2025 09:47:11 6 Colonoscopy completed [facility] 03/04/2025 09:54:07 7 Dilation and Curettage completed [facility] 03/04/2025 09:54:13 Imaging Results None recorded. Procedure Notes None recorded. Medical Equipment None Reported. Allergies Allergen ID Allergen Name Allergen Category Reaction Reaction Severity Criticality Documentation Date Start Date Code Code System Note Provider Name and Address Organization Details Recorded Time 69203 tramadol medicatio n Not available Not available Not available 03/04/2025 67502 RxNorm [facility] 5 09:46:55 44828 nickel sulfate Not available rash Not available low 09/02/20252015 27540 RxNorm Not Available jimena - External Data [...] Not Available Vitals Date Recorded Body weight Body mass index (BMI) Body height Systolic And Diastolic Provider Name and Address Organization Details Last Updated DateTime 08/07/2025 927541.83 747 g 38.4 kg/m2 165.1 cm 117/77 mm[Hg] Gloria Ramos [facility] 08/07/2025 10:48:44 Social History Question Answer Notes LastModified by [...] Or The Highest Degree You Have Received? [id number] Information not available 03/04/2025 Are There Any [...] Functional Status Question Answer Note LastModified by [email or web address] ion Details LastModified Time Do you use [...] anxious, or unable to sleep at night)? [id number] Information not available 03/04/2025 Family History Relationship [...] ICD10 Code Diagnosis IMO Codes Diagnosis Note [id number] AMI CARRION MD [place] [address] [address] 07/08/2025 09:52:05 07/08/2025 11:35:05 Multigravida of advanced maternal age 164676300 O09.523 71135618 Gestation period, 28 weeks 29193249 Z3A.28 9888939 [id number] Lila Hernández CNM [place] [address] [address] 07/22/2025 09:45:25 07/22/2025 10:13:19 Gestation period, 30 weeks 97037436 Z3A.30 8822459 305127 AMI CARRION MD [place] [address] [address] 08/07/2025 09:42:22 08/07/2025 10:46:46 Multigravida of advanced maternal age 993567725 O09.523 Z3A.32 24227634 253856 AMI CARRION MD [place] [address] [address] 08/07/2025 09:42:57 08/07/2025 11:20:42 Multigravida of advanced maternal age 431764896 O09.529 78425189 Gestation period, 32 weeks 7404031 Z3A.32 [id number] Health Concerns Section Related Observation LastModified by Organization Detai ls LastModified Time None Recorded Concern Status LastModified by Organization Details LastModified Time None Recorded Payers Encounter Date Sequence Insurance Name Policy Number Policy Delgado Covered Member ID Delgado Member ID Guarantor Name 08/07/2025 1 [facility] Anamika Crowley [id number] Anamika Crowley Notes Date Note Type Note Provider Name and Address Organization Details Recorded Time 08/07/2025 text/html Generic HPI TemplateReported by Patient AMI CARRION MD [address], [place], [address], [facility] 08/07/2025 11:18:10 OBGyn Episode Ob Episode Information Episode Created Date Number of Fetuses Patient Bloodtype Patient rh Status Prepregnancy Weight lbs Domestic Partner Domestic Partner Phone Father Name Teletypesetter Status 03/04/20 25 1 A Positive 174 Micah OPEN Fetus Data First Name Last Name Admitted to NICU Weight (g) Sex Living Outcome Pediatric Complications Fetus ID Race Codes Race Delivery Type [id number] Problems Problem Notes Problem Name Start Date End Date Resolution Snomed Code Not e Multigravida of advanced maternal age 0603/04/2025 149708494 Teddy Calculation Initial Teddy Date Initial Exam [...] Date Ultra Sound Latest Days Gestation 0 03/04/2025 09/26/19 26 0 Pre-diane Flowsheet Flowsheet Date 03/04/2025 Block Score Blood Edema Fundus Height Fundus Units Glucose Ketones Leukocytes Nitrite Labor Signs Protein Cervic Dilation Cervic Effacement Cervic Station Type Weight in lbs Pre/Post Dialysis Refused Weight 174.489217454941 BP Diastolic BP Location Tested BP Systolic BP Type 77 L arm 115 sitting Fetus Heart Rate Present Fetus Movement A No Comments Patient presents to [facility] care. No nausea or cramping. Hx of [...] Type Weight in lbs Pre/Post Dialysis Refused 183.878377298484 BP Diastolic BP Location Tested BP Systolic [...] Weight in lbs Pre/Post Dialysis Refused Weight 197.952652050863 BP Diastolic BP Location Tested BP Systolic [...] Weight in lbs Pre/Post Dialysis Refused Weight 195.063236677118 BP Diastolic BP Location Tested BP Systolic [...] Weight in lbs Pre/Post Dialysis Refused Weight 212.506436257574 BP Diastolic BP Location Tested BP Systolic [...] Type Weight in lbs Pre/Post Dialysis Refused 219.002625853775 BP Diastolic BP Location Tested BP Systolic [...] Type Weight in lbs Pre/Post Dialysis Refused 223.735185551912 BP Diastolic BP Location Tested BP Systolic [...] Type Weight in lbs Pre/Post Dialysis Refused 231.076607947628 BP Diastolic BP Location Tested BP Systolic [...] Weight in lbs Pre/Post Dialysis Refused Weight 232.9809240682 BP Diastolic BP Location Tested BP Systolic [...] Weight in lbs Pre/Post Dialysis Refused Weight 231.011083267784 BP Diastolic BP Location Tested BP Systolic [...] Weight in lbs Pre/Post Dialysis Refused Weight 229.014987978746 BP Diastolic BP Location Tested BP Systolic [...]
--- OUTSIDE RECORDS SUMMARY | 2025-09-16 23:41 | XMS_ITS | Continuity of Care Document ---
Author Organization [facility] Address [address] [address] [address] Care Team Providers Care Etl Consultant Name Role Phone FRANTZ ZHANG Primary Care [...] recorded . Surgeries None recorded . Imaging US, obstetri c, follow-u p 2024 025 [facility], [address], [address], [place], [address], 08/07/2025 17:33:35 Medication Orders None recorded . Patient TargetsNo targets recorded. Patient InstructionsNo instructions recorded. Reason for Referral None Reported. Results Created Date Observation Date Name Description Value Unit Range Abnormal Flag Note LastModifiedBy Organization Detail LastModifiedTime 03/10/20 25 03/10/2025 [UNIT Y] ANEUP LOIDY NIPT fraction 6.6% normal Not Available Alice villarreal [address], [place], [address], 03/10/2025 07:42:34 03/10/20 25 03/10/2025 [UNIT Y] ANEUP LOIDY NIPT sex chromosome aneuploidy NOT DETECT ED normal Not Available Pilar monson [address], [place], [address], 03/10/2025 07:42:34 03/10/20 25 03/10/2025 [UNIT Y] ANEUP LOIDY NIPT monosomy X LOW RISK <1 in 10,000 normal Not Available [facility] [address], [place], [address], 03/10/2025 07:42:34 03/10/20 25 03/10/2025 [UNIT Y] ANEUP LOIDY NIPT trisomy 13 LOW RISK <1 in 10,000 normal Not Available [facility] [address], [place], [address], 03/10/2025 07:42:34 03/10/20 25 03/10/2025 [UNIT Y] ANEUP LOIDY NIPT trisomy 18 LOW RISK <1 in 10,000 normal Not Available [facility] [address], [place], [address], 03/10/2025 07:42:34 03/10/20 25 03/10/2025 [UNIT Y] ANEUP LOIDY NIPT trisomy 21 LOW RISK <1 in 10,000 normal Not Available [facility] [address], [place], [address], 03/10/2025 07:42:34 03/10/20 25 03/10/2025 [UNIT Y] ANEUP LOIDY NIPT sex FEMALE normal Not Available [facility] [address], [place], [address], 03/10/2025 07:42:34 03/10/20 25 03/10/2025 [UNIT Y] ANEUP LOIDY NIPT gestation SINGLE TON normal Not Available [facility] [address], [place], [address], 03/10/2025 07:42:34 03/10/20 25 03/10/2025 [UNIT Y] ANEUP LOIDY NIPT for detailed report, see pdf See PDF normal Not Available [facility] [address], [place], [address], 03/10/2025 07:42:34 03/13/20 25 03/13/2025 [UNIT Y] ANGELITO JAZMÍN Arzate sickle cell disease/beta -thalassemia /hemoglobino pathies carrier screen NEGATI VE normal Not Available [facility] [address], [place], [address], 03/13/2025 20:27:17 03/13/20 25 03/13/2025 [UNIT Y] ANGELITO JAZMÍN MARSHALL N alpha-thalas semia carrier screen NEGATI VE normal Not Available [facility] [address], [place], [address], 03/13/2025 20:27:17 03/13/20 25 03/13/2025 [UNIT Y] ANGELITO JAZMÍN Arzate cystic fibrosis carrier screen NEGATI VE normal Not Available [facility] [address], [place], [address], 03/13/2025 20:27:17 03/13/20 25 03/13/2025 [UNIT Y] ANGELITO JAZMÍN Arzate spinal muscular atrophy carrier screen NEGATI VE 2 SMN1 copies , SNP not presen t normal Not Available [facility] [address], [place], [address], 03/13/2025 20:27:17 03/13/20 25 03/13/2025 [UNIT Y] ANGELITO JAZMÍN Arzate for detailed report, see pdf See PDF normal Not Available [facility] [address], [place], [address], 03/13/2025 20:27:17 03/04/20 25 03/04/2025 HEPAT ITIS C ANTIB BRODERICK SCREFernando N, REFLE X TO CONFI RMATI ON hepatitis C antibody Non-re active non-re active Antib odies to HCV Not Detec carrington, does not exclu de the possi bilit y of expos ure to HCV. Not Available [facility] (Lab) [address] [facility] [facility], [place], [address], 03/05/2025 10:19:41 03/04/2003/04/2025 HEPAT ITIS B SURFA CE ANTIG EN hepatitis B surface antigen Non-re active non-re active This assay was perfo rmed using [employer] ratio n reage nts and test kits. Value s obtai neelima with other assay metho ds or kits canno t be used inter curran eably . Not Available [facility] (Lab) [address] [facility] [facility], [place], [address], 03/05/2025 10:19:41 03/04/2003/04/2025 HIV 1/2 ANTIG EN/AN TIBOD Y, REFLE X CONFI RMATI ON HIV antigen/anti body Nonrea ctive nonrea ctive HIV-1 antig en and HIV-1 /HIV- 2 antib odies were not detec carrington. No labor atory evide nce of HIV infec tion. Not Available [facility] (Lab) [address] [facility] [facility], [place], [address], 03/05/2025 10:19:41 03/04/2003/04/2025 RUBEL LA IGG ANTIB BRODERICK, QUANT rubella antibodies, IgG Reacti ve reacti ve Not Available [facility] (Lab) [address] [facility] [facility], [place], [address], 03/05/2025 10:19:42 03/04/20 25 03/04/2025 RUBEL LA IGG ANTIB BRODERICK, QUANT rubella antibodies, IgG quant 14.3 IU/mL >=10 Non-r eacti ve (Non- Immun e) <10 IU/mL React gisele (Immu ne) > or = 10 IU/mL Not Available [facility] (Lab) [address] [facility], [place], [address], 03/05/2025 10:19:42 03/04/20 25 03/04/2025 CBC W/DIF F WBC 9.6 10'3/ uL 3.5-10 .5 Not Available [facility] (Lab) [address] [facility] [facility], [place], [address], 03/05/2025 10:19:42 03/04/20 25 03/04/2025 CBC W/DIF F RBC 3.79 10'6/ uL (based on docume nted legal sex) 3.80-5 .20 low Not Available [facility] (Lab) [address] [facility] [facility], [place], [address], 03/05/2025 10:19:42 03/04/20 25 03/04/2025 CBC W/DIF F HGB 12.3 g/dL (based on docume nted legal sex) 11.6-1 5.4 Not Available [facility] (Lab) [address] [facility], [place], [address], 03/05/2025 10:19:42 03/04/20 25 03/04/2025 CBC W/DIF F HCT 38.4 % (based on docume nted legal sex) 34.0-4 5.0 Not Available [facility] (Lab) [address] [facility], [place], [address], 03/05/2025 10:19:42 03/04/2003/04/2025 CBC W/DIF F MCV 101.3 fL 80.0-9 9.0 high Not Available [facility] (Lab) [address] [facility], [place], [address], 03/05/2025 10:19:42 03/04/2003/04/2025 CBC W/DIF F MCH 32.5 pg 27.0-3 4.0 Not Available [facility] (Lab) [address] [facility], [place], [address], 03/05/2025 10:19:42 03/04/2003/04/2025 CBC W/DIF F MCHC 32.0 g/dL 32.0-3 5.5 Not Available [facility] (Lab) [address] [facility], [place], [address], 03/05/2025 10:19:42 03/04/2003/04/2025 CBC W/DIF F RDW 14.6 % 11.0-1 5.0 Not Available [facility] (Lab) [address] [facility], [place], [address], 03/05/2025 10:19:42 03/04/20 25 03/04/2025 CBC W/DIF F plt 245 10'3/ uL 150-40 0 Not Available [facility] (Lab) [address] [facility], [place], [address], 03/05/2025 10:19:42 03/04/20 25 03/04/2025 CBC W/DIF F MPV 10.8 fL 8.8-12 .1 Not Available [facility] (Lab) [address] [facility] [facility], [place], [address], 03/05/2025 10:19:42 03/04/20 25 03/04/2025 CBC W/DIF F NRBC's 0.0 % 0.0 Not Available [facility] (Lab) [address] [facility], [place], [address], 03/05/2025 10:19:42 03/04/2003/04/2025 CBC W/DIF F absolute NRBCs 0.0 10'3/ uL no refere nce range establ ished Not Available [facility] (Lab) [address] [facility], [place], [address], 03/05/2025 10:19:42 03/04/2003/04/2025 CBC W/DIF F neutrophils 66.6 % 34.0-7 3.0 Not Available [facility] (Lab) [address] [facility], [place], [address], 03/05/2025 10:19:42 03/04/20 25 03/04/2025 CBC W/DIF F lymphocytes 21.0 % 15.0-5 0.0 Not Available [facility] (Lab) [address] [facility], [place], [address], 03/05/2025 10:19:42 03/04/20 25 03/04/2025 CBC W/DIF F monocytes 8.9 % 1.0-15 .0 Not Available [facility] (Lab) [address] [facility], [place], [address], 03/05/2025 10:19:42 03/04/20 25 03/04/2025 CBC W/DIF F eosinophils 2.5 % 0.0-8. 0 Not Available [facility] (Lab) [address] [facility], [place], [address], 03/05/2025 10:19:42 03/04/20 25 03/04/2025 CBC W/DIF F basophils 0.7 % 0.0-2. 0 Not Available [facility] (Lab) [address] [facility], [place], [address], 03/05/2025 10:19:42 03/04/2003/04/2025 CBC W/DIF F immature granulocytes 0.3 % no define d refere nce range Immat ure Granu locyt es (IG) repre sents autom ated enume ratio n of Metam yeloc ytes, Myelo cytes and Promy elocy jeaneth when IG is < 5%. Blast s are not inclu ded in IG and repor carrington separ ately if prese nt. Not Available [facility] (Lab) [address] [facility], [place], [address], 03/05/2025 10:19:42 03/04/20 25 03/04/2025 CBC W/DIF F absolute neutrophils 6.4 10'3/ uL 1.5-8. 0 Not Available [facility] (Lab) [address] [facility], [place], [address], 03/05/2025 10:19:42 03/04/20 25 03/04/2025 CBC W/DIF F absolute lymphocytes 2.0 10'3/ uL 1.0-4. 0 Not Available [facility] (Lab) [address] [facility], [place], [address], 03/05/2025 10:19:42 03/04/20 25 03/04/2025 CBC W/DIF F absolute monocytes 0.9 10'3/ uL 0.2-1. 0 Not Available [facility] (Lab) [address] [facility], [place], [address], 03/05/2025 10:19:42 03/04/20 25 03/04/2025 CBC W/DIF F absolute eosinophils 0.2 10'3/ uL 0.0-0. 6 Not Available [facility] (Lab) [address] [facility], [place], [address], 03/05/2025 10:19:42 03/04/20 25 03/04/2025 CBC W/DIF F absolute basophils 0.1 10'3/ uL 0.0-0. 3 Not Available [facility] (Lab) [address] [facility], [place], [address], 03/05/2025 10:19:42 03/04/20 25 03/04/2025 CBC W/DIF F absolute immature granulocytes 0.0 10'3/ uL 0.00-0 .10 Refer ence range s for nonbi nary/ inter sex or unspe cifie d gende r patie nts have not been estab lishe d. Pleas e refer to the follo wing table for range s estab lishe d for cisge nder patie nts and evalu ate in the clini mariano alonzo xt of the indiv idual patie nt: https ://priyanka rodriguez book. nm.or g/gen derx Not Available [facility] (Lab) [address] [facility], [place], [address], 03/05/2025 10:19:42 03/04/20 25 03/04/2025 TYPE/ RH/SC REEN ABO/Rh type A POS Not Available [facility] (Lab) [address] [facility], [place], [address], 03/05/2025 10:19:42 03/04/20 25 03/04/2025 TYPE/ RH/SC REEN antibody screen NEG Not Available [facility] (Lab) [address] [facility], [place], [address], 03/05/2025 10:19:42 03/04/20 25 03/04/2025 TYPE/ RH/SC REEN exp date 2024 23:59 Not Available [facility] (Lab) [address] [facility], [place], [address], 03/05/2025 10:19:42 03/04/20 25 03/04/2025 HEMOG LOBIN A1C hemoglobin A1C 4.8 % [...] >8.0% Actio n sugge sted Not Available [facility] (Lab) [address] [facility] [facility], [place], [address], 03/05/2025 10:19:43 03/04/20 25 03/04/2025 RPR SCREE N, REFLE X TITER /CONF IRMAT ION RPR qualitative Nonrea ctive nonrea ctive Not Available [facility] (Lab) [address] [facility], [place], [address], 03/05/2025 10:19:43 03/04/20 25 03/04/2025 CT/GC AND TRICH OMONA S VAGIN ISABEL (RRNA ), URINE chlamydia trachomatis, PCR Negati ve negati ve Not Available [facility] (Lab) [address] [facility] [facility], [place], [address], 03/06/2025 00:29:18 03/04/20 25 03/04/2025 CT/GC AND TRICH OMONA S VAGIN ISABEL (RRNA ), URINE neisseria gonorrhoeae, PCR Negati ve negati ve Not Available [facility] (Lab) [address] [facility], [place], [address], 03/06/2025 00:29:18 03/04/2003/04/2025 CT/GC AND TRICH OMONA S VAGIN ISABEL (RRNA ), URINE trichomonas vaginalis ribosomal RNA (rrna) Negati ve negati ve Not Available [facility] (Lab) [address] [facility], [place], [address], 03/06/2025 00:29:18 03/04/2003/04/2025 CULTU RE: URINE result report SEE RESULT S BELOW Test: Cultu re: Urine Speci men Sourc e: Urine Voide d Speci men Type: Urine Speci men Date: 2024 1056 Resul t Date: 2024 2325 Resul t Statu s: Final resul t Abnor mal: No Resul ting Lab: [facility] [address] [facility] [address] Tel: CULTU RE ----- ----- ----- --- Cultu re resul t (>=3 organ isms prese nt) indic ates possi ble conta minat ion. Repea t cultu re if sympt oms indic ate. Not Available [facility] (Lab) [address] [facility], [place], [address], 03/06/2025 00:29:19 03/19/20 25 03/19/2025 CULTU RE: URINE result report SEE RESULT S BELOW Test: Cultu re: Urine Speci men Sourc e: Urine Voide d Speci men Type: Urine Speci men Date: 2024 170 Resul t Date: 2024 0322 Resul t Statu s: Final resul t Abnor mal: No Resul ting Lab: [facility] [address] [facility] [address] Tel: CULTU RE ----- ----- ----- --- No growt h in 1 day (dete ction level of 10,00 0 colon ies / ml.) Not Available [facility] (Lab) [address] [facility], [place], [address], 03/21/2025 04:28:02 03/19/2003/19/2025 CULTU RE: URINE result report SEE RESULT S BELOW Test: Cultu re: Urine Speci men Sourc e: Urine Voide d Speci men Type: Urine Speci men Date: 2024 171 Resul t Date: 2024 2141 Resul t Statu s: Final resul t Abnor mal: No Resul ting Lab: [facility] [address] [facility] [address] Tel: CULTU RE ----- ----- ----- --- Cultu re resul t (>=3 organ isms prese nt) indic ates possi ble conta minat ion. Repea t cultu re if sympt oms indic ate. Not Available [facility] (Lab) [address] [facility], [place], [address], 03/21/2025 22:45:05 07/08/20 25 07/08/2025 HEMOG LOBIN (HGB) HGB 11.1 g/dL (based on docume nted legal sex) 11.6-1 5.4 low Not Available [facility] (Lab) [address] [facility], [place], [address], 07/09/2025 11:13:10 07/08/20 25 07/08/2025 HEMAT OCRIT (HCT) HCT 34.0 % (based on docume nted legal sex) 34.0-4 5.0 Not Available [facility] (Lab) [address] [facility], [place], [address], 07/09/2025 11:13:11 07/08/2007/08/2025 GTT - GESTA TARIQ L SCREE N, ACOG OB glucose, 1 hour screen 171 mg/dL 70-135 high Not Available [facility] (Lab) [address] [facility], [place], [address], 07/09/2025 11:13:11 07/08/2007/08/2025 HIV 1/2 ANTIG EN/AN TIBOD Y, REFLE X CONFI RMATI ON HIV antigen/anti body Nonrea ctive nonrea ctive HIV-1 antig en and HIV-1 /HIV- 2 antib odies were not detec carrington. No labor atory evide nce of HIV infec tion. Not Available [facility] (Lab) [address] [facility], [place], [address], 07/09/2025 11:13:12 07/08/2007/08/2025 RPR SCREE N, REFLE X TITER /CONF IRMAT ION RPR qualitative Nonrea ctive nonrea ctive Not Available [facility] (Lab) [address] [facility], [place], [address], 07/09/2025 11:13:12 07/16/2007/16/2025 GTT - GESTA TARIQ L, 3 HOUR, ACOG glucose, fasting acog 80 mg/dL 70-94 Not Available [facility] (Lab) [address] [place], [address], 07/17/2025 05:25:34 07/16/20 25 07/16/2025 GTT - GESTA TARIQ L, 3 HOUR, ACOG glucose, 1 hour acog 175 mg/dL 70-179 Not Available [facility] (Lab) [address] [place], [address], 07/17/2025 05:25:34 07/16/20 25 07/16/2025 GTT - GESTA TARIQ L, 3 HOUR, ACOG glucose, 2 hour acog 154 mg/dL 70-154 Not Available [facility] (Lab) [address] [place], [address], 07/17/2025 05:25:34 07/16/20 25 07/16/2025 GTT - GESTA TARIQ L, 3 HOUR, ACOG glucose, 3 hour acog 72 mg/dL 70-139 Not Available [facility] (Lab) [address] [place], [address], 07/17/2025 05:25:34 03/04/20 25 03/03/2025 US, obste tric, follo w-up No observ ation record ed. [email or web address] [address], [place], [address], 03/07/2025 21:37:38 03/04/20 25 03/03/2025 US, obste tric, 1st trime ster No observ ation record ed. [address], [place], [address], 03/09/2025 12:28:15 03/19/20 25 03/19/2025 US, obste tric, nucha l trans lucen cy No observ ation record ed. [facility] [address], [place], [address], 03/19/2025 17:52:27 03/19/20 25 03/19/2025 US, obste tric, 1st trime ster No observ ation record ed. [facility] [address], [place], [address], 03/19/2025 17:52:36 03/19/20 25 03/19/2025 US, obste tric, follo w-up No observ ation record ed. [email or web address] [address], [place], [address], 03/23/2025 09:26:34 04/06/20 25 04/06/2025 imagi ng/di agnos tic resul t No observ ation record ed. JIMENA [address], [place], [address], 04/13/2025 12:13:32 05/13/20 25 05/13/2025 US, obste tric, 2nd or 3rd trime ster No observ ation record ed. [email or web address] [facility] [address], [place], [address], 05/13/2025 18:22:31 05/13/20 25 05/13/2025 US, obste tric, 2nd or 3rd trime ster No observ ation record ed. [email or web address] [address], [place], [address], 05/13/2025 16:32:33 08/07/20 25 08/07/2025 US, obste tric, follo w-up No observ ation record ed. [email or web address] [facility] [address], [place], [address], 08/07/2025 13:46:32 08/07/20 25 08/07/2025 US, obste tric, follo w-up No observ ation record ed. [email or web address] [address], [place], [address], 08/24/2025 11:16:22 Result Notes None recorded. Problems Name Problem SNOMED Code Status Onset Date Resolution Date Notes Provider Name and Address Organization Details Recorded Time 22610239 Active 2024 Jackelin Teixeira [facility] [place] [facility] 09:55:04 Multigravida of advanced maternal age 193237367 Active 2024 AMI CARRION MD [address], [place], [address], [place] [facility] 5 15:47:41 Problem Notes None recorded. Procedures Surgical History Date Name Laterality Status Provider Name and Address Organization Details Recorded Time 5 Date of Last Pap Smear completed [facility] 03/04/2025 09:47:11 6 Colonoscopy completed [facility] 03/04/2025 09:54:07 7 Dilation and Curettage completed [facility] 03/04/2025 09:54:13 Imaging Results None recorded. Procedure Notes None recorded. Medical Equipment None Reported. Allergies Allergen ID Allergen Name Allergen Category Reaction Reaction Severity Criticality Documentation Date Start Date Code Code System Note Provider Name and Address Organization Details Recorded Time 05448 tramadol medicatio n Not available Not available Not available 03/04/2025 03776 RxNorm [facility] 5 09:46:55 44094 nickel sulfate Not available rash Not available low 09/02/20252015 23471 RxNorm Not Available jimena - External Data [...] Address Organization Details Last Updated DateTime 08/07/2025 540350.83 747 g 38.4 kg/m2 165.1 cm 117/77 mm[Hg] Gloria Ramos [facility] 08/07/2025 10:48:44 Social History Question Answer [...] Or The Highest Degree You Have Received? TV21479-0 Information not available 03/04/2025 Are There Any [...] anxious, or unable to sleep at night)? ES21237-6 Information not available 03/04/2025 Family History Relationship [...] ICD10 Code Diagnosis IMO Codes Diagnosis Note [id number] AMI CARRION MD [facility] [address] [address] 07/08/2025 09:52:05 07/08/2025 11:35:05 Multigravida of advanced maternal age 250957441 O09.523 35903139 Gestation period, 28 weeks 04443038 Z3A.28 0245629 [id number] Lila Hernández CNM [facility] [address],[facility] [place] [address] 07/22/2025 09:45:25 07/22/2025 10:13:19 Gestation period, 30 weeks 26333687 Z3A.30 8216013 [id number] AMI CARRION MD [facility] [address],[facility] [place] [address] 08/07/2025 09:42:22 08/07/2025 10:46:46 Multigravida of advanced maternal age 124015602 O09.523 Z3A.32 10380191 [id number] AMI CARRION MD [facility] [address],[place] [address] 08/07/2025 09:42:57 08/07/2025 11:20:42 Multigravida of advanced maternal age 412919089 O09.529 [id number] Gestation period, 32 weeks 0465104 Z3A.32 5196351 Health Concerns Section Related Observation LastModified by Organization Detai ls LastModified Time None Recorded Concern Status LastModified by Organization Details LastModified Time None Recorded Payers Encounter Date Sequence Insurance Name Policy Number Policy Delgado Covered Member ID Delgado Member ID Guarantor Name 08/07/2025 1 [facility] Anamika Crowley [id number] Anamika Crowley Notes Date Note Type Note Provider Name and Address Organization Details Recorded Time 08/07/2025 text/html Generic HPI TemplateReported by Patient AMI CARRION MD [address], [place], [address], [facility] 08/07/2025 11:18:10 OBGyn Episode Ob Episode Information Episode Created Date Number of Fetuses Patient Bloodtype Patient rh Status Prepregnancy Weight lbs Domestic Partner Domestic Partner Phone Father Name Environmental Aid Status 03/04/20 25 1 A Positive 174 Micah OPEN Fetus Data First Name Last Name Admitted to NICU Weight (g) Sex Living Outcome Pediatric Complications Fetus ID Race Codes Race Delivery Type [id number] Problems Problem Notes Problem Name Start Date End Date Resolution Snomed Code Not e Multigravida of advanced maternal age 0603/04/2025 394878213 Teddy Calculation Initial Teddy Date Initial Exam [...] Date Ultra Sound Latest Days Gestation 0 [email or web address] 03/04/2025 09/26/19 26 0 Pre-diane Flowsheet Flowsheet Date 03/04/2025 Block Score Blood Edema Fundus Height Fundus Units Glucose Ketones Leukocytes Nitrite Labor Signs Protein Cervic Dilation Cervic Effacement Cervic Station Type Weight in lbs Pre/Post Dialysis Refused Weight 174.266329220386 BP Diastolic BP Location Tested BP Systolic BP Type 77 L arm 115 sitting Fetus Heart Rate Present Fetus Movement A No Comments Patient presents to [facility] care. No nausea or cramping. Hx [...] Type Weight in lbs Pre/Post Dialysis Refused 183.972420795857 BP Diastolic BP Location Tested BP Systolic [...] Weight in lbs Pre/Post Dialysis Refused Weight 197.175835870500 BP Diastolic BP Location Tested BP Systolic [...] Weight in lbs Pre/Post Dialysis Refused Weight 195.945333973007 BP Diastolic BP Location Tested BP Systolic [...] Weight in lbs Pre/Post Dialysis Refused Weight 212.802651834463 BP Diastolic BP Location Tested BP Systolic [...] Type Weight in lbs Pre/Post Dialysis Refused 219.814032992698 BP Diastolic BP Location Tested BP Systolic [...] Type Weight in lbs Pre/Post Dialysis Refused 223.975482468058 BP Diastolic BP Location Tested BP Systolic [...] Type Weight in lbs Pre/Post Dialysis Refused 231.519882988931 BP Diastolic BP Location Tested BP Systolic [...] Weight in lbs Pre/Post Dialysis Refused Weight 232.2891857422 BP Diastolic BP Location Tested BP Systolic [...] Weight in lbs Pre/Post Dialysis Refused Weight 231.492422220182 BP Diastolic BP Location Tested BP Systolic [...] Weight in lbs Pre/Post Dialysis Refused Weight 229.685096295872 BP Diastolic BP Location Tested BP Systolic [...]
--- OUTSIDE RECORDS SUMMARY | 2025-09-16 23:41 | XMS_ITS | Clinical Summary ---
Author Organization [facility] Address 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 This disclosure is being madepursuant to the Care Everywhere program and may not contain all information available regarding this patient. 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 Emergency ER at [address] [id number] from Last 3 Months Social History Tobacco Use Types Packs/Day Years Used Date Smoking Tobacco: Never Assessed Comments Unknown Sex and Gender Information Value Date Recorded Sex Assigned at Not on file Legal Sex Female 1:06 PM DENTISTRY TEACHER Gender Identity Not on file Sexual Orientation Not on file Plan of Treatment Health Maintenance Due Date Last Done Comments HIV SCREENING 2001 HEPATITIS C SCREENING 05/23/2004 DTAP/TDAP/TD VACCINES (1 - Tdap) 2005 HEPATITIS B VACCINE (1 of 3 - 19+ 3-dose series) 2005 PAP SMEAR 2007 HPV VACCINE (1 - 3-dose SCDM series) 2013 DEPRESSION SCREENING 09/24/2024 COVID-19 VACCINE ( - 2024-2 6 season) 2025 INFLUENZA VACCINE (#1) 2025 ZOSTER VACCINE (1 [...] Documents on File Type Date Recorded Patient Enterostomal Therapy Nurse Expl anation Adv Directive/Living Will/POA 01/01/2017
--- OUTSIDE RECORDS SUMMARY | 2025-09-16 23:41 | XMS_ITS | Continuity of Care Document ---
Author Organization [facility] Address [address] [place] [address] Care Team Providers Care Training Generalist Name Role Phone FRANTZ ZHANG Primary Care Provider Assessment Encounter Date Assessment Date Assessment LastModified by Organization Details LastModified Time 08/17/2025 08/17/2025 Patient is ___weeks . Discussed plan. Not available 08/17/2025 11:30:16 Plan of Treatment Reminders Order Date Submit [...] Abnormal Flag Note LastModifiedBy Organization Detail LastModifiedTime 03/10/2003/10/2025 [UNIT Y] ANEUP LOIDY NIPT fraction 6.6% normal Not Available Alice villarreal [address], [place], [address], 03/10/2025 07:42:34 03/10/20 25 03/10/2025 [UNIT Y] ANEUP LOIDY NIPT sex chromosome aneuploidy NOT DETECT ED normal Not Available Pilar monson [address], [place], [address], 03/10/2025 07:42:34 03/10/20 25 03/10/2025 [UNIT Y] ANEUP LOIDY NIPT monosomy X LOW RISK <1 in 10,000 normal Not Available [facility] [address], [place], [address], 03/10/2025 07:42:34 03/10/20 25 03/10/2025 [UNIT Y] ANEUP LOIDY NIPT trisomy 13 LOW RISK <1 in 10,000 normal Not Available [facility] [address], [place], [address], 03/10/2025 07:42:34 03/10/20 25 03/10/2025 [UNIT Y] ANEUP LOIDY NIPT trisomy 18 LOW RISK <1 in 10,000 normal Not Available [facility] [address], [place], [address], 03/10/2025 07:42:34 03/10/20 25 03/10/2025 [UNIT Y] ANEUP LOIDY NIPT trisomy 21 LOW RISK <1 in 10,000 normal Not Available [facility] [address], [place], [address], 03/10/2025 07:42:34 03/10/20 25 03/10/2025 [UNIT Y] ANEUP LOIDY NIPT sex FEMALE normal Not Available [facility] [address], [place], [address], 03/10/2025 07:42:34 03/10/20 25 03/10/2025 [UNIT Y] ANEUP LOIDY NIPT gestation SINGLE TON normal Not Available [facility] [address], [place], [address], 03/10/2025 07:42:34 03/10/20 25 03/10/2025 [UNIT Y] ANEUP LOIDY NIPT for detailed report, see pdf See PDF normal Not Available [facility] [address], [place], [address], 03/10/2025 07:42:34 03/13/20 25 03/13/2025 [UNIT Y] ANGELITO JAZMÍN Arzate sickle cell disease/beta -thalassemia /hemoglobino pathies carrier screen NEGATI VE normal Not Available [facility] [address], [place], [address], 03/13/2025 20:27:17 03/13/20 25 03/13/2025 [UNIT Y] ANGELITO JAZMÍN Arzate alpha-thalas semia carrier screen NEGATI VE normal Not Available [facility] [address], [place], [address], 03/13/2025 20:27:17 03/13/20 25 03/13/2025 [UNIT Y] ANGELITO Arzate cystic fibrosis carrier screen NEGATI VE normal Not Available [facility] [address], [place], [address], 03/13/2025 20:27:17 03/13/20 25 03/13/2025 [UNIT Y] ANGELITO Arzate spinal muscular atrophy carrier screen NEGATI VE 2 SMN1 copies , SNP not presen t normal Not Available [facility] [address], [place], [address], 03/13/2025 20:27:17 03/13/20 25 03/13/2025 [UNIT Y] ANGELITO JAZMÍN Arzate for detailed report, see pdf See PDF normal Not Available [facility] [address], [place], [address], 03/13/2025 20:27:17 03/04/20 25 03/04/2025 HEPAT ITIS C ANTIB BRODERICK ROLANDO Arzate, REFLE X TO CONFI RMATI ON hepatitis C antibody Non-re active non-re active Antib odies to HCV Not Detec carrington, does not exclu de the possi bilit y of expos ure to HCV. Not Available [facility] (Lab) [address], [place], [address], 03/05/2025 10:19:41 03/04/2003/04/2025 HEPAT ITIS B SURFA CE ANTIG EN hepatitis B surface antigen Non-re active non-re active This assay was perfo rmed using [employer] ratio n reage nts and test kits. Value s obtai neelima with other assay metho ds or kits canno t be used inter curran eably . Not Available [facility] (Lab) [address], [place], [address], 03/05/2025 10:19:41 03/04/2003/04/2025 HIV 1/2 ANTIG EN/AN TIBOD Y, REFLE X CONFI RMATI ON HIV antigen/anti body Nonrea ctive nonrea ctive HIV-1 antig en and HIV-1 /HIV- 2 antib odies were not detec carrington. No labor atory evide nce of HIV infec tion. Not Available [facility] (Lab) [address], [place], [address], 03/05/2025 10:19:41 03/04/2003/04/2025 RUBEL LA IGG ANTIB BRODERICK, QUANT rubella antibodies, IgG Reacti ve reacti ve Not Available [facility] (Lab) [address], [place], [address], 03/05/2025 10:19:42 03/04/2003/04/2025 RUBEL LA IGG ANTIB BRODERICK, QUANT rubella antibodies, IgG quant 14.3 IU/mL >=10 Non-r eacti ve (Non- Immun e) <10 IU/mL React gisele (Immu ne) > or = 10 IU/mL Not Available [facility] (Lab) [address], [place], [address], 03/05/2025 10:19:42 03/04/2003/04/2025 CBC W/DIF F WBC 9.6 10'3/ uL 3.5-10 .5 Not Available [facility] (Lab) [address], [place], [address], 03/05/2025 10:19:42 03/04/20 25 03/04/2025 CBC W/DIF F RBC 3.79 10'6/ uL (based on docume nted legal sex) 3.80-5 .20 low Not Available [facility] (Lab) [address], [place], [address], 03/05/2025 10:19:42 03/04/20 25 03/04/2025 CBC W/DIF F HGB 12.3 g/dL (based on docume nted legal sex) 11.6-1 5.4 Not Available [facility] (Lab) [address], [place], [address], 03/05/2025 10:19:42 03/04/20 25 03/04/2025 CBC W/DIF F HCT 38.4 % (based on docume nted legal sex) 34.0-4 5.0 Not Available [facility] (Lab) [address], [place], [address], 03/05/2025 10:19:42 03/04/20 25 03/04/2025 CBC W/DIF F MCV 101.3 fL 80.0-9 9.0 high Not Available [facility] (Lab) [address], [place], [address], 03/05/2025 10:19:42 03/04/20 25 03/04/2025 CBC W/DIF F MCH 32.5 pg 27.0-3 4.0 Not Available [facility] (Lab) [address], [place], [address], 03/05/2025 10:19:42 03/04/20 25 03/04/2025 CBC W/DIF F MCHC 32.0 g/dL 32.0-3 5.5 Not Available [facility] (Lab) [address], [place], [address], 03/05/2025 10:19:42 03/04/20 25 03/04/2025 CBC W/DIF F RDW 14.6 % 11.0-1 5.0 Not Available [facility] (Lab) [address], [place], [address], 03/05/2025 10:19:42 03/04/20 25 03/04/2025 CBC W/DIF F plt 245 10'3/ uL 150-40 0 Not Available [facility] (Lab) [address], [place], [address], 03/05/2025 10:19:42 03/04/20 25 03/04/2025 CBC W/DIF F MPV 10.8 fL 8.8-12 .1 Not Available [facility] (Lab) [address], [place], [address], 03/05/2025 10:19:42 03/04/20 25 03/04/2025 CBC W/DIF F NRBC's 0.0 % 0.0 Not Available [facility] (Lab) [address], [place], [address], 03/05/2025 10:19:42 03/04/20 25 03/04/2025 CBC W/DIF F absolute NRBCs 0.0 10'3/ uL no refere nce range establ ished Not Available [facility] (Lab) [address], [place], [address], 03/05/2025 10:19:42 03/04/20 25 03/04/2025 CBC W/DIF F neutrophils 66.6 % 34.0-7 3.0 Not Available [facility] (Lab) [address], [place], [address], 03/05/2025 10:19:42 03/04/20 25 03/04/2025 CBC W/DIF F lymphocytes 21.0 % 15.0-5 0.0 Not Available [facility] (Lab) [address], [place], [address], 03/05/2025 10:19:42 03/04/20 25 03/04/2025 CBC W/DIF F monocytes 8.9 % 1.0-15 .0 Not Available [facility] (Lab) [address], [place], [address], 03/05/2025 10:19:42 03/04/20 25 03/04/2025 CBC W/DIF F eosinophils 2.5 % 0.0-8. 0 Not Available [facility] (Lab) [address], [place], [address], 03/05/2025 10:19:42 03/04/20 25 03/04/2025 CBC W/DIF F basophils 0.7 % 0.0-2. 0 Not Available [facility] (Lab) [address], [place], [address], 03/05/2025 10:19:42 03/04/20 25 03/04/2025 CBC W/DIF [...] separ ately if prese nt. Not Available [facility] (Lab) [address], [place], [address], 03/05/2025 10:19:42 03/04/20 25 03/04/2025 CBC W/DIF F absolute neutrophils 6.4 10'3/ uL 1.5-8. 0 Not Available [facility] (Lab) [address], [place], [address], 03/05/2025 10:19:42 03/04/20 25 03/04/2025 CBC W/DIF F absolute lymphocytes 2.0 10'3/ uL 1.0-4. 0 Not Available [facility] (Lab) [address], [place], [address], 03/05/2025 10:19:42 03/04/20 25 03/04/2025 CBC W/DIF F absolute monocytes 0.9 10'3/ uL 0.2-1. 0 Not Available [facility] (Lab) [address], [place], [address], 03/05/2025 10:19:42 03/04/20 25 03/04/2025 CBC W/DIF F absolute eosinophils 0.2 10'3/ uL 0.0-0. 6 Not Available [facility] (Lab) [address], [place], [address], 03/05/2025 10:19:42 03/04/20 25 03/04/2025 CBC W/DIF F absolute basophils 0.1 10'3/ uL 0.0-0. 3 Not Available [facility] (Lab) [address], [place], [address], 03/05/2025 10:19:42 03/04/20 25 03/04/2025 CBC W/DIF F absolute immature granulocytes 0.0 10'3/ uL 0.00-0 .10 Refer ence range s for nonbi nary/ inter sex or unspe cifie d gende r patie nts have not been estab lishe d. [facility]as e [facility] for range s estab lishe d for cisge nder patie nts and evalu ate in the clini mariano alonzo xt of the indiv idual patie nt: https :[email or web address] rodriguez book. nm.or g/gen derx Not Available [facility] (Lab) [address], [place], [address], 03/05/2025 10:19:42 03/04/2003/04/2025 TYPE/ RH/SC REEN ABO/Rh type A POS Not Available [facility] (Lab) [address], [place], [address], 03/05/2025 10:19:42 03/04/20 25 03/04/2025 TYPE/ RH/SC REEN antibody screen NEG Not Available [facility] (Lab) [address], [place], [address], 03/05/2025 10:19:42 03/04/20 25 03/04/2025 TYPE/ RH/SC REEN exp date 2024 23:59 Not Available [facility] (Lab) [address], [place], [address], 03/05/2025 10:19:42 03/04/20 25 03/04/2025 HEMOG LOBIN [...] >8.0% Actio n sugge sted Not Available [facility] (Lab) [address], [place], [address], 03/05/2025 10:19:43 03/04/20 25 03/04/2025 RPR SCREE N, REFLE X TITER /CONF IRMAT ION RPR qualitative Nonrea ctive nonrea ctive Not Available [facility] (Lab) [address], [place], [address], 03/05/2025 10:19:43 03/04/20 25 03/04/2025 CT/GC AND TRICH OMONA S VAGIN ISABEL (RRNA ), URINE chlamydia trachomatis, PCR Negati ve negati ve Not Available [facility] (Lab) [address], [place], [address], 03/06/2025 00:29:18 03/04/2003/04/2025 CT/GC AND TRICH OMONA S VAGIN ISABEL (RRNA ), URINE neisseria gonorrhoeae, PCR Negati ve negati ve Not Available [facility] (Lab) [address], [place], [address], 03/06/2025 00:29:18 03/04/2003/04/2025 CT/GC AND TRICH OMONA S VAGIN ISABEL (RRNA ), URINE trichomonas vaginalis ribosomal RNA (rrna) Negati ve negati ve Not Available [facility] (Lab) [address], [place], [address], 03/06/2025 00:29:18 03/04/2003/04/2025 CULTU RE: URINE result report SEE RESULT S BELOW Test: Cultu re: Urine Speci men Sourc e: Urine Voide d Speci men Type: Urine Speci men Date: 2024 1056 Resul t Date: 2024 2325 Resul t Statu s: Final resul t Abnor mal: No Resul ting Lab: [facility] [address] [facility] [address] Tel: CULTU RE ----- ----- ----- --- Cultu re resul t (>=3 organ isms prese nt) indic ates possi ble conta minat ion. Repea t cultu re if sympt oms indic ate. Not Available [facility] (Lab) [address], [place], [address], 03/06/2025 00:29:19 03/19/2003/19/2025 CULTU RE: URINE result report SEE RESULT S BELOW Test: Cultu re: Urine Speci men Sourc e: Urine Voide d Speci men Type: Urine Speci men Date: 2024 1709 Resul t Date: 2024 0322 Resul t Statu s: Final resul t Abnor mal: No Resul ting Lab: [facility] [address] [facility] [address] Tel: CULTU RE ----- ----- ----- --- No growt h in 1 day (dete ction level of 10,00 0 colon ies / ml.) Not Available [facility] (Lab) [address], [place], [address], 03/21/2025 04:28:02 03/19/2003/19/2025 CULTU RE: URINE result report SEE RESULT S BELOW Test: Cultu re: Urine Speci men Sourc e: Urine Voide d Speci men Type: Urine Speci men Date: 2024 Resul t Date: 20241 Resul t Statu s: Final resul t Abnor mal: No Resul ting Lab: [facility] [address] [facility] [address] Tel: CULTU RE ----- ----- ----- --- Cultu re resul t (>=3 organ isms prese nt) indic ates possi ble conta minat ion. Repea t cultu re if sympt oms indic ate. Not Available [facility] (Lab) [address] [place], [address], 03/21/2025 22:45:05 07/08/20 25 07/08/2025 HEMOG LOBIN (HGB) HGB 11.1 g/dL (based on docume nted legal sex) 11.6-1 5.4 low Not Available [facility] (Lab) [address] [place], [address], 07/09/2025 11:13:10 07/08/20 25 07/08/2025 HEMAT OCRIT (HCT) HCT 34.0 % (based on docume nted legal sex) 34.0-4 5.0 Not Available [facility] (Lab) [address], [place], [address], 07/09/2025 11:13:11 07/08/2007/08/2025 GTT - GESTA TARIQ L SCREE N, ACOG OB glucose, 1 hour screen 171 mg/dL 70-[address] [facility] (Lab) [address], [place], [address], 07/09/2025 11:13:11 07/08/2007/08/2025 HIV 1/2 ANTIG EN/AN TIBOD Y, REFLE X CONFI RMATI ON HIV antigen/anti body Nonrea ctive nonrea ctive HIV-1 antig en and HIV-1 /HIV- 2 antib odies were not detec carrington. No labor atory evide nce of HIV infec tion. Not Available [facility] (Lab) [address], [place], [address], 07/09/2025 11:13:12 07/08/2007/08/2025 RPR SCREE N, REFLE X TITER /CONF IRMAT ION RPR qualitative Nonrea ctive nonrea ctive Not Available [facility] (Lab) [address], [place], [address], 07/09/2025 11:13:12 07/16/2007/16/2025 GTT - GESTA TARIQ L, 3 HOUR, ACOG glucose, fasting acog 80 mg/dL 70-94 Not Available [facility] (Lab) [address] [place], [address], 07/17/2025 05:25:34 07/16/20 25 07/16/2025 GTT - GESTA TARIQ L, 3 HOUR, ACOG glucose, 1 hour acog 175 mg/dL 70-[address] [facility] (Lab) [address] [place], [address], 07/17/2025 05:25:34 07/16/20 25 07/16/2025 GTT - GESTA TARIQ L, 3 HOUR, ACOG glucose, 2 hour acog 154 mg/dL 70-[address] [facility] (Lab) [address], [place], [address], 07/17/2025 05:25:34 07/16/20 25 07/16/2025 GTT - GESTA TARIQ L, 3 HOUR, ACOG glucose, 3 hour acog 72 mg/dL 70-[address] [facility] (Lab) [address], [place], [address], 07/17/2025 05:25:34 03/04/20 25 03/03/2025 US, obste tric, follo w-up No observ ation record ed. [email or web address] [address]indy [address], [place], [address], 03/07/2025 21:37:38 03/04/20 25 03/03/2025 US, obste tric, 1st trime ster No observ ation record ed. Sindy [address], [place], [address], 03/09/2025 12:28:15 03/19/20 25 03/19/2025 US, obste tric, nucha l trans lucen cy No observ ation record ed. [facility] [address], [place], [address], 03/19/2025 17:52:27 03/19/20 25 03/19/2025 US, obste tric, 1st trime ster No observ ation record ed. [facility] [address], [place], [address], 03/19/2025 17:52:36 03/19/20 25 03/19/2025 US, obste tric, follo w-up No observ ation record ed. [email or web address] Snidy [address], [place], [address], 03/23/2025 09:26:34 04/06/20 25 04/06/2025 imagi ng/di agnos tic resul t No observ ation record ed. KAREN Sindy [address], [place], [address], 04/13/2025 12:13:32 05/13/20 25 05/13/2025 US, obste tric, 2nd or 3rd trime ster No observ ation record ed. [email or web address] [facility] [address], [place], [address], 05/13/2025 18:22:31 05/13/20 25 05/13/2025 US, obste tric, 2nd or 3rd trime ster No observ ation record ed. [email or web address] Sindy [address], [place], [address], 05/13/2025 16:32:33 08/07/20 25 08/07/2025 US, obste tric, follo w-up No observ ation record ed. [email or web address] [facility] [address], [place], [address], 08/07/2025 13:46:32 08/07/20 25 08/07/2025 US, obste tric, follo w-up No observ ation record ed. [email or web address] Sindy [address], [place], [address], 08/24/2025 11:16:22 Result Notes None recorded. Problems Name Problem SNOMED Code Status Onset Date Resolution Date Notes Provider Name and Address Organization Details Recorded Time 30772363 Active 2024 Jackelin Teixeira [facility] [place] - [facility] 09:55:04 Multigravida of advanced maternal age 935063754 Active 2024 AMI CARRION MD [address], [place], [address], [place] [facility] 5 15:47:41 Problem Notes None recorded. Procedures Surgical History Date Name Laterality Status Provider Name and Address Organization Details Recorded Time 5 Date of Last Pap Smear completed [facility] 03/04/2025 09:47:11 6 Colonoscopy completed [facility] 03/04/2025 09:54:07 7 Dilation and Curettage completed [facility] 03/04/2025 09:54:13 Imaging Results None recorded. Procedure Notes None recorded. Medical Equipment None Reported. Allergies Allergen ID Allergen Name Allergen Category Reaction Reaction Severity Criticality Documentation Date Start Date Code Code System Note Provider Name and Address Organization Details Recorded Time 67796 tramadol medicatio n Not available Not available Not available 03/04/2025 64606 RxNorm [facility] 5 09:46:55 38512 nickel sulfate Not available rash Not available low 09/02/20252015 07087 RxNorm Not Available [place] [facility] - External Data Service - prod 5 [...] Not Available No t Available amoxicillin 875 mg-potskinny m clavulanate 125 mg tablet TAKE 1 [...] Available Not Available Vitals Date Recorded Body height Body mass index (BMI) Body weight Systolic And Diastolic Provider Name and Address Organization Details Last Updated DateTime 08/17/2025 165.1 cm 38.6 kg/m2 041093.43 g 126/78 mm[Hg] Jackelin Teixeira [facility] 08/17/2025 11:31:07 Social History Question Answer Notes LastModified by [...] Or The Highest Degree You Have Received? HN69986-3 Information not available 03/04/2025 Are There Any [...] anxious, or unable to sleep at night)? [id number] Information not available 03/04/2025 Family History Relationship [...] ICD10 Code Diagnosis IMO Codes Diagnosis Note [id number] Lila Hernández CNM [facility] [address] [address] 07/22/2025 09:45:25 07/22/2025 10:13:19 Gestation period, 30 weeks 10796153 Z3A.30 7525579 [id number] AMI CARRION MD [facility] [address] [address] 08/07/2025 09:42:22 08/07/2025 10:46:46 Multigravida of advanced maternal age 683851479 O09.523 Z3A.32 05520385 608064 AMI CARRION MD [facility] [address] [address] 08/07/2025 09:42:57 08/07/2025 11:20:42 Multigravida of advanced maternal age 171752548 O09.529 28216020 Gestation period, 32 weeks 0002793 Z3A.32 4623824 [id number] Dallin Wilson MD [facility] [address] [address] 08/17/2025 10:54:26 08/17/2025 12:11:01 care status 287900904 Z34.83 [id number] Health Concerns Section Related Observation LastModified by Organization Detai ls LastModified Time None Recorded Concern Status LastModified by Organization Details LastModified Time None Recorded Payers Encounter Date Sequence Insurance Name Policy Number Policy Delgado Covered Member ID Delgado Member ID Guarantor Name 08/17/2025 1 [facility] Anamika Crowley [id number] Anamika Crowley Notes Date Note Type Note Provider Name and Address Organization Details Recorded Time 08/17/2025 text/html Generic HPI TemplateReported by Patient Dallin Wilson MD [address], [place], [address], [facility] 08/17/2025 12:13:08 OBGyn Episode Ob Episode Information Episode Created Date Number of Fetuses Patient Bloodtype Patient rh Status Prepregnancy Weight lbs Domestic Partner Domestic Partner Phone Father Name Blood Bank Supervisor Status 03/04/20 25 1 A Positive 174 Micah OPEN Fetus Data First Name Last Name Admitted to NICU Weight (g) Sex Living Outcome Pediatric Complications Fetus ID Race Codes Race Delivery Type [id number] Problems Problem Notes Problem Name Start Date End Date Resolution Snomed Code Not e Multigravida of advanced maternal age 0603/04/2025 128040924 Teddy Calculation Initial Teddy Date Initial Exam [...] Date Ultra Sound Latest Days Gestation 0 [email or web address] 03/04/2025 09/26/19 26 0 Pre-diane Flowsheet Flowsheet Date 03/04/2025 Block Score Blood Edema Fundus Height Fundus Units Glucose Ketones Leukocytes Nitrite Labor Signs Protein Cervic Dilation Cervic Effacement Cervic Station Type Weight in lbs Pre/Post Dialysis Refused Weight 174.078262258055 BP Diastolic BP Location Tested BP Systolic BP Type 77 L arm 115 sitting Fetus Heart Rate Present Fetus Movement A No Comments Patient presents to [facility] care. No nausea or cramping. Hx of [...] Type Weight in lbs Pre/Post Dialysis Refused 183.281775712508 BP Diastolic BP Location Tested BP Systolic [...] Weight in lbs Pre/Post Dialysis Refused Weight 197.645095246487 BP Diastolic BP Location Tested BP Systolic [...] Weight in lbs Pre/Post Dialysis Refused Weight 195.146045738066 BP Diastolic BP Location Tested BP Systolic [...] Weight in lbs Pre/Post Dialysis Refused Weight 212.914962287231 BP Diastolic BP Location Tested BP Systolic [...] Type Weight in lbs Pre/Post Dialysis Refused 219.550140259595 BP Diastolic BP Location Tested BP Systolic [...] Type Weight in lbs Pre/Post Dialysis Refused 223.504068796313 BP Diastolic BP Location Tested BP Systolic [...] Type Weight in lbs Pre/Post Dialysis Refused 231.037875886476 BP Diastolic BP Location Tested BP Systolic [...] Weight in lbs Pre/Post Dialysis Refused Weight 232.7464829468 BP Diastolic BP Location Tested BP Systolic [...] Weight in lbs Pre/Post Dialysis Refused Weight 231.536090587048 BP Diastolic BP Location Tested BP Systolic [...] Weight in lbs Pre/Post Dialysis Refused Weight 229.987797972979 BP Diastolic BP Location Tested BP Systolic [...]
--- OUTSIDE RECORDS SUMMARY | 2025-09-16 23:41 | XMS_ITS | Encounter Summary ---
Author Organization [facility] Address [address] [place] [address] Care Team Providers Care Audit Associate Name Role Phone Joycelyn Gomez MD Primary Care Provider + [phone] Arielle Haynes CIRCULATION SALES REPRESENTATIVE Primary Care Provider + [phone] Joycelyn Gomez MD Primary Care Provider + [phone] Uma Tomlin [facility] Primary Care Provider + Judy Tse NP Primary Care Provider [phone] Uriah Sevilla Primary Care Provider [phone] Mu Plunkett MD Primary Care Provider [phone] Uriah Sevilla Primary Care Provider [phone] Encounter Details Date Type Department Care Team (Late st Contact Info) Description 11/20/2022 Gene[employer] Biosciences[employer] Message Enc [facility] Family & Internal Medicine - [place] [address] [place] [address] Julia Herrera PA [address] [place] [address] Refill Social History Tobacco Use Types [...] Assigned at Female 11/20/2024 9:16 AM EMERGENCY MANAGEMENT SPECIALIST Legal Sex Female 7:00 PM CDT Gender Identity Not on file Sexual Orientation Not on file COVID-19 Exposure Response Date Recorded In the last 10 days, have yo u been in contact with someone who was confirmed or suspected to have Coronavirus/COVID-19? No / Unsure 11/02/2022 1:26 PM EMERGENCY MANAGEMENT SPECIALIST documented as of this encounter Plan of Treatment Upcoming Encounters Date Type Department Care Team (Late st Contact Info) Description 09/25/2025 8:30 AM EMERGENCY MANAGEMENT SPECIALIST Appointment [facility] Outpatient Rehab [address] [place], [place] [phone] [place] [address] [place] [address] [place] [address] [place] [address] documented as of this encounter Visit Diagnoses Not on filedocumented in this encounter Additional Health Concerns Assessment Noted Time PHQ-9 Depression Total Score: 1 02/01/20 22 9:49 AM CDT documented as of this encounter Care Teams Audit Associate Relationship Specialty Start Date End Date Joycelyn Gomez MD PCP - General INTERNAL MEDICINE 07/28/20 11/28/22 [place] [address] [place] [address] PCP - General Nurse Practitioner Family 12/29/2212/23 Joycelyn Gmoez MD PCP - General INTERNAL MEDICINE 11/29/22 12/28/22 Uma Tomlin, [facility] [address] [email or web address] [place] [address] PCP - General 01/02/23 01/30/23 [place] [address] [address], [address] [place] [address] PCP - General Nurse Practitioner Family 01/31/2310/25 [place] [address] [place] [address] PCP - General Physician Plug Machine Operator Medical 11/12/23 08/24/25 Mu Plunkett MD [address] [place] [id number] PCP - General OBGYN 08/25/25 08/30/25 [place] [address] [address] [address] PCP - General PHYSICIAN INFORMATION SYSTEMS SECURITY ANALYST 08/31/25 documented as of this encounter
--- OUTSIDE RECORDS SUMMARY | 2025-09-16 23:41 | XMS_ITS | Encounter Summary ---
Author Organization [facility] Address [address] [place] [address] Care Team Providers Care Senior Net Software Developer Name Role Phone Judy Tse NP Primary Care Provider [phone] Uriah Sevilla Primary Care Provider [phone] Mu Plunkett MD Primary Care Provider [phone] Uriah Sevilla Primary Care Provider [phone] Encounter Details Date Type Department Care Team (Late st Contact Info) Description 10/25/2023 MyChart Message Enc [facility] Medical Group Family & Internal Medicine [facility] [address] [place] [address] Uriah Sevilla PA [address] [place] [address] [place] Social History Tobacco Use Types [...] Sex Assigned at Female 11/20/2024 9:16 AM RELATIONSHIP MANAGEMENT LEAD Legal Sex Female 7:00 PM CDT Gender Identity Not on file Sexual Orientation Not on file documented as of this encounter Plan of Treatment Upcoming Encounters Date Type Department Care Team (Late st Contact Info) Description 09/25/2025 8:30 AM RELATIONSHIP MANAGEMENT LEAD Appointment [facility] Outpatient Rehab [address] [place] [address] [place] [address] [place], [place] [phone] [place] [address] [place], [place] [phone] documented as of this encounter Visit Diagnoses Not on filedocumented in this encounter Additional Health Concerns Assessment Noted Time PHQ-9 Depression Total Score: 1 02/01/20 22 9:49 AM CDT documented as of this encounter Care Teams Senior Net Software Developer Relationship Specialty [place] [address] [facility] [address] [place] [address] PCP - General Nurse Practitioner Family 01/31/2310/25 [place] [address] [place] [address] PCP - General Physician Commissioner Of Internal Revenue Medical 11/12/23 08/24/25 Mu Plunkett MD [address] [place] [address] PCP - General OBGYN 08/25/25 08/30/25 [place] [address] [place] [address] PCP - General PHYSICIAN CUSTOMS COLLECTOR 08/31/25 documented as of this encounter
--- OUTSIDE RECORDS SUMMARY | 2025-09-16 23:41 | XMS_ITS | Encounter Summary ---
Author Organization [facility] Address [address] [place] [address] Care Team Providers Care Entry Level Marketing Representative Name Role Phone Shanelle Funk TRAVEL AGENT Primary Care Provider Joycelyn Truong MD Primary Care Provider + [phone] Arielle Haynes TRAVEL AGENT Primary Care Provider + [phone] Joycelyn Gomez MD Primary Care Provider + [phone] Uma Tomlin [facility] Primary Care Provider + Judy Tse NP Primary Care Provider [phone] Uriah Sevilla Primary Care Provider [phone] Mu Plunkett MD Primary Care Provider [phone] Uriah Sevilla Primary Care Provider [phone] Encounter Details Date Type Department Care Team (Late st Contact Info) Description 07/27/[address] [facility] Family & Internal Medicine [facility] [address] [place] [address] Uma Tomlin [place] [address] [place] [id number] RE: Other Social History Tobacco Use Types Packs/Day Years Used Date Smoking Tobacco: Former Cigarettes Q uit: 09/04/2011 Smokeless Tobacco: Never Alcohol Use Standard Drinks/Week Comments Yes 0 (1 standard drink = 0.6 oz pur e alcohol) social PHQ-2 Answer Date Recorded PHQ-2 Score 4 2020 Comments No Sex and Gender Information Value Date Recorded Sex Assigned at Female 11/20/2024 9:16 AM PATTERNMAKER METAL BENCH Legal Sex Female 7:00 PM CDT Gender Identity Not on file Sexual Orientation Not on file documented as of this encounter Plan of Treatment Upcoming Encounters Date Type Department Care Team (Late st Contact Info) Description 09/25/2025 8:30 AM PATTERNMAKER METAL BENCH Appointment [facility] Outpatient Rehab [address] [place], [place] [phone] [place] [address] [place] [address] [place] [address] [place] [address] documented as of this encounter Visit Diagnoses [...] Rule Out 11/02/2022 11/02/2022 11/02/2022 1:59 PM PATTERNMAKER METAL BENCH Assessment Noted Time PHQ-9 Depression Total Score: 12 020 11:09 AM CDT documented as of this encounter Care Teams Entry Level Marketing Representative Relationship Specialty Start Date End Date Shanelle Funk NP PCP - General 07/04/16 07/27/20 Joycelyn Gomez MD PCP - General INTERNAL MEDICINE 07/28/20 11/28/22 [place] [address] [address] [place] [address] PCP - General Nurse Practitioner Family 12/29/2212/23 Joycelyn Gomez MD PCP - General INTERNAL MEDICINE 11/29/22 12/28/22 Uma Tomlin, [facility] [address] [address] [place] [address] PCP - General 01/02/23 01/30/23 [place] [address] [address], [address] [place] [address] PCP - General Nurse Practitioner Family 01/31/2310/25 [place] [address] [place] [address] PCP - General Physician Claim Investigator Medical 11/12/23 08/24/25 Mu Plunkett MD [address] [place] [address] PCP - General OBGYN 08/25/25 08/30/25 [place] [address] [place] [address] PCP - General PHYSICIAN PRESSURE TESTING TECHNICIAN 08/31/25 documented as of this encounter
--- OUTSIDE RECORDS SUMMARY | 2025-09-16 23:41 | XMS_ITS | Encounter Summary ---
Author Organization [facility] Address [address] [place] [address] Care Team Providers Care Computational Linguist Name Role Phone Joycelyn Gomez MD Primary Care Provider + [phone] Arielle Haynes SENIOR CARE PROVIDER Primary Care Provider + [phone] Joycelyn Gomez MD Primary Care Provider + [phone] Uma Tomlin [facility] Primary Care Provider + Judy Tse NP Primary Care Provider [phone] Uriah Sevilla Primary Care Provider [phone] Mu Plunkett MD Primary Care Provider [phone] Uriha Sevilla Primary Care Provider [phone] Encounter Details Date Type Department Care Team (Late st Contact Info) Description 05/09/2021 Smartzer Message [facility] Patient Accounts [address] [place] [address] Chris, [facility] Provider Financial Assistance Social History Tobacco Use [...] Sex Assigned at Female 11/20/2024 9:16 AM DIGITAL MEDIA SALES CONSULTANT Legal Sex Female 7:00 PM CDT [...] st Contact Info) Description 09/25/2025 8:30 AM DIGITAL MEDIA SALES CONSULTANT Appointment [facility] Outpatient Rehab [address] [place], [place] [phone] [place] [address] [place], [place] [phone] [place] [address] [place], [place] [phone] documented as of this encounter Visit Diagnoses Not on filedocumented in this encounter Additional Health Concerns Infection Onset Date Last Indicated Resolved Time COVID-19 Rule Out 01/31/2022 01/31/2022 01/31/2022 3:20 PM CDT COVID-19 Confirmed 01/31/2022 01/31/2022 12:32 AM CDT COVID-19 Rule Out 06/23/2022 06/23/2022 06/23/2022 12:16 PM CDT COVID-19 Rule Out 11/02/2022 11/02/2022 11/02/2022 1:59 PM DIGITAL MEDIA SALES CONSULTANT Assessment Noted Time PHQ-9 Depression Total Score: 0 05/04/20 21 1:11 PM CDT documented as of this encounter Care Teams Computational Linguist Relationship Specialty Start Date End Date Joycelyn Gomez MD PCP - General INTERNAL MEDICINE 07/28/20 11/28/22 [place] [address] [place] [id number] PCP - General Nurse Practitioner Family 12/29/2212/23 Joycelyn Gomez MD PCP - General INTERNAL MEDICINE 11/29/22 12/28/22 Uma Tomlin [facility] [address] [place] [address] PCP - General 01/02/23 01/30/23 Judy Tse, [place]IE [address] [address], [address] [place] [address] PCP - General Nurse Practitioner Family 01/31/2310/25 [place] [address] [place] [address] PCP - General Physician Superintendent Compressor Stations Medical 11/12/23 08/24/25 Mu Plunkett MD [address] [place] [address] PCP - General OBGYN 08/25/25 08/30/25 [place] [address] [place] [address] PCP - General PHYSICIAN TELEVISION ACTOR 08/31/25 documented as of this encounter
--- OUTSIDE RECORDS SUMMARY | 2025-09-16 23:41 | XMS_ITS | Encounter Summary ---
Author Organization [facility] Address [address] [place] [address] Care Team Providers Care Strategic Marketing Manager Name Role Phone Joycelyn Gomez MD Primary Care Provider + [phone] Arielle Haynes INSTRUCTOR INDUSTRIAL DESIGN Primary Care Provider + [phone] Joycelyn Gomez MD Primary Care Provider + [phone] Uma Tomlin [facility] Primary Care Provider + Judy Tse NP Primary Care Provider [phone] Uriah Sevilla Primary Care Provider [phone] Mu Plunkett MD Primary Care Provider [phone] Uriah Sevilla Primary Care Provider [phone] Encounter Details Date Type Department Care Team (Late st Contact Info) Description 05/20/2021 FlipKey Message Enc [facility] Medical Group Family & Internal Medicine [facility] [address] [place] [address] Chris, [facility] Provider Ayad [employer] [facility] Social History Tobacco Use Types Packs/Day Years [...] Sex Assigned at Female 11/20/2024 9:16 AM SHOPPER MARKETING MANAGER Legal Sex Female 7:00 PM CDT [...] st Contact Info) Description 09/25/2025 8:30 AM SHOPPER MARKETING MANAGER Appointment [facility] Outpatient Rehab [address] [place], [place] [phone] [place] [address] [place], [place] [phone] [place] [address] [place] [address] documented as of this encounter Visit Diagnoses Not on filedocumented in this encounter Additional Health Concerns Infection Onset Date Last Indicated Resolved Time COVID-19 Rule Out 01/31/2022 01/31/2022 01/31/2022 3:20 PM CDT COVID-19 Confirmed 01/31/2022 01/31/2022 12:32 AM CDT COVID-19 Rule Out 06/23/2022 06/23/2022 06/23/2022 12:16 PM CDT COVID-19 Rule Out 11/02/2022 11/02/2022 11/02/2022 1:59 PM SHOPPER MARKETING MANAGER Assessment Noted Time PHQ-9 Depression Total Score: 0 05/04/20 21 1:11 PM CDT documented as of this encounter Care Teams Strategic Marketing Manager Relationship Specialty Start Date End Date Joycelyn Gomez MD PCP - General INTERNAL MEDICINE 07/28/20 11/28/22 [place] [address] [address] [place] [address] PCP - General Nurse Practitioner Family 12/29/2212/23 Joycelyn Gomez MD PCP - General INTERNAL MEDICINE 11/29/22 12/28/22 Uma Tomlin [facility] [address] [place] [address] PCP - General 01/02/23 01/30/23 [place] [address] [address], [address] [place] [address] PCP - General Nurse Practitioner Family 01/31/2310/25 [place] [address] [place] [address] PCP - General Physician Top Lift Scourer Medical 11/12/23 08/24/25 Mu Plunkett MD [address] [place] [address] PCP - General OBGYN 08/25/25 08/30/25 [place] [address] [address] [place] [id number] PCP - General PHYSICIAN NATURAL RESOURCES PROFESSOR 08/31/25 documented as of this encounter
--- OUTSIDE RECORDS SUMMARY | 2025-09-16 23:41 | XMS_ITS | Data Portability ---
Author Organization [facility] Address [address] [address] [place] [address] Care Team Providers Care Golf Cart Maker Name Role Phone FRANTZ ZHANG Primary Care [...] US, obstetri c, follow-u p 2024 025 [facility], [address], [address], [place], [address], 08/07/2025 17:33:35 Medication Orders None recorded . Patient TargetsNo targets recorded. Patient InstructionsNo instructions recorded. Reason for Referral None Reported. Results Created Date Observation Date Name Description Value Unit Range Abnormal Flag Note LastModifiedBy Organization Detail LastModifiedTime 07/08/2007/08/2025 HEMOG LOBIN (HGB) HGB 11.1 g/dL (based on docume nted legal sex) 11.6-1 5.4 low Not Available [facility] (Lab) [address] [facility], [place], [address], 07/09/2025 11:13:10 07/08/20 25 07/08/2025 HEMAT OCRIT (HCT) HCT 34.0 % (based on docume nted legal sex) 34.0-4 5.0 Not Available [facility] (Lab) [address] [facility] [address] [facility], [place], [address], 07/09/2025 11:13:11 07/08/20 25 07/08/2025 GTT - GESTA TARIQ L SCREE N, ACOG OB glucose, 1 hour screen 171 mg/dL 70-135 high Not Available [facility] (Lab) [address] [facility] [address] [facility], [place], [address], 07/09/2025 11:13:11 07/08/2007/08/2025 HIV 1/2 ANTIG EN/AN TIBOD Y, REFLE X CONFI RMATI ON HIV antigen/anti body Nonrea ctive nonrea ctive HIV-1 antig en and HIV-1 /HIV- 2 antib odies were not detec [place]. No labor atory evide nce of HIV infec tion. Not Available [facility] (Lab) [address] [facility], [place], [address], 07/09/2025 11:13:12 07/08/20 25 07/08/2025 RPR SCREE N, REFLE X TITER /CONF IRMAT ION RPR qualitative Nonrea ctive nonrea ctive Not Available [facility] (Lab) [address] [facility], [place], [address], 07/09/2025 11:13:12 07/16/20 25 07/16/2025 GTT - GESTA TARIQ L, 3 HOUR, ACOG glucose, fasting acog 80 mg/dL 70-94 Not Available [facility] (Lab) [address] [place], [address], 07/17/2025 05:25:34 07/16/20 25 07/16/2025 GTT - GESTA TARIQ L, 3 HOUR, ACOG glucose, 1 hour acog 175 mg/dL 70-179 Not Available [facility] (Lab) [address] [place], [address], 07/17/2025 05:25:34 07/16/20 25 07/16/2025 GTT - GESTA TARIQ L, 3 HOUR, ACOG glucose, 2 hour acog 154 mg/dL 70-154 Not Available [facility] (Lab) [address] [facility], [place], [address], 07/17/2025 05:25:34 07/16/20 25 07/16/2025 GTT - GESTA TARIQ L, 3 HOUR, ACOG glucose, 3 hour acog 72 mg/dL 70-139 Not Available [facility] (Lab) [address] [place], [address], 07/17/2025 05:25:34 08/07/20 25 08/07/2025 US, obste tric, follo w-up No observ ation record ed. [facility] [address], [place], [address], 08/07/2025 13:46:32 08/07/20 25 08/07/2025 US, obste tric, follo w-up No observ ation record ed. [email or web address] [address] [place] [address], [address], 08/24/2025 11:16:22 Result Notes None recorded. Problems Name Problem SNOMED Code Status Onset Date Resolution Date Notes Provider Name and Address Organization Details Recorded Time 21758107 Active 2024 Jackelin duvall [place] - [facility] 5 09:55:04 Multigravida of advanced maternal age 249918607 Active 2024 AMI CARRION MD [address], [place], [address], [facility] 5 15:47:41 Problem Notes None recorded. Procedures Surgical History Date Name Laterality Status Provider Name and Address Organization Details Recorded Time 5 Date of Last Pap Smear completed [facility] 03/04/2025 09:47:11 6 Colonoscopy completed [facility] 03/04/2025 09:54:07 7 Dilation and Curettage completed [facility] 03/04/2025 09:54:13 Imaging Results None recorded. Procedure Notes None recorded. Medical Equipment None Reported. Allergies Allergen ID Allergen Name Allergen Category Reaction Reaction Severity Criticality Documentation Date Start Date Code Code System Note Provider Name and Address Organization Details Recorded Time 56179 tramadol medicatio n Not available Not available Not available 03/04/2025 34610 RxNorm [facility] 5 09:46:55 98747 nickel sulfate Not available rash Not available low 09/02/20252015 30395 RxNorm Not Available jimena - External Data [...] Address Organization Details Last Updated DateTime 08/07/2025 257786.83 747 g 38.4 kg/m2 165.1 cm 117/77 mm[Hg] Gloria Ramos [facility] 08/07/2025 10:48:44 Date Recorded Body height Body mass index (BMI) Body weight Systolic And Diastolic Provider Name and Address Organization Details Last Updated DateTime 08/17/2025 165.1 cm 38.6 kg/m2 651790.43 g 126/78 mm[Hg] Jackelin Teixeira [facility] 08/17/2025 11:31:07 Date Recorded Body height Body mass index (BMI) Body weight Systolic And Diastolic Provider Name and Address Organization Details Last Updated DateTime 09/02/2025 165.1 cm 38.4 kg/m2 997480.84 g 128/81 mm[Hg] ANAMIKA BHATTI [facility] 09/02/2025 09:59:02 Date Recorded Body height Body mass index (BMI) Body weight Systolic And Diastolic Provider Name and Address Organization Details Last Updated DateTime 09/07/2025 165.1 cm 38.1 kg/m2 922739.65 g 121/80 mm[Hg] ANAMIKA BHATTI [facility] 09/07/2025 10:04:17 Social History Question Answer Notes LastModified by [...] Or The Highest Degree You Have Received? PO69528-7 Information not available 03/04/2025 Are There Any [...] anxious, or unable to sleep at night)? [id number] Information not available 03/04/2025 Family History Relationship Description Onset Age of this Age Resolved Age Notes LastModified by Organization Details LastModified Time Father Diabetes mellitus Not available 2024 09:47:00 Mother Diabetes mellitus Not available 2024 09:47:00 Medical History Condition Response Allergies (Food, seasonal, environmental ) N Other N Breast Cancer N Drug/Latex Allergies/Reactions N Blood Transfusion N Dermatologic Disorders N Lung Disease N Defects or Inherited Disease N Breast Problem N Gestational Diabetes N Hematologic disorders N Anesthesia Complications N History of STI N Deep Vein Thrombosis N Polycystic ovary syndrome Y Anxiety Disorder N Autoimmune disease N Arthritis N Infertility N Polyps N Acid Reflux (GERD) N History of abnormal pap N Cancer N Stroke N Varicosities N Neurologic/Epilepsy N Endometriosis N High Cholesterol N Headaches N Fibromyalgia N Kidney Disease N Heart Problems N Kidney or Bladder Problems N Thyroid Problems N GI Problems Y Eating Disorder [...] ICD10 Code Diagnosis IMO Codes Diagnosis Note [id number] AMI CARRION MD [place] [address],[place] [address] 03/03/2025 11:00:29 03/03/2025 11:36:52 103271 AMI CARRION MD [place] [address],[place] [address] 03/03/2025 11:00:42 03/03/2025 18:10:45 [id number] AMI CARRION MD [place] [address],[place] [address] 03/04/2025 09:35:16 03/04/2025 10:54:50 screening 240764388 Z36.0 Genetic in vestigation procedure 68146599 Z31.430 Multigravi da of advanced maternal age 724682661 O09.529 11732516 - discussed NT/NB scan and NIPT due to increased risks of chromosoma l abnormalit ies Gestation period, 10 weeks 08320242 Z3A.10 6060217 care status 24 8501458 Z34.80 0586585616 222816 MD Michael Lozano [address],[place] [address] 03/19/2025 14:22:22 03/19/2025 15:03:35 screening 636824763 Z36.82 Z3A.12 3948903618 564715 MD Michael Lozano [address],[place] [address] 03/19/2025 14:27:43 03/19/2025 16:25:37 care status 555013456 Z34.82 47956897 774045 MD Michael QUINN [address],[place] [address] 04/06/2025 13:27:54 04/06/2025 16:00:15 [id number] MD Michael QUINN [address],[place] [address] 04/13/2025 14:48:06 04/13/2025 15:49:33 Multigravida of advanced maternal age 739069167 O09.529 49603315 Gestation period, 16 weeks 74009142 Z3A.16 8258230 643872 AMI CARRION MD [place] [address],[place] [address] 05/13/2025 14:58:18 05/13/2025 16:10:14 screening for malformation 482501356 Z36.3 Z3A.20 3399206710 329632 AMI CARRION MD [place] [address],[place] [address] 05/13/2025 15:01:07 05/13/2025 16:23:57 Multigravida of advanced maternal age 827073939 O09.529 96496128 Gestation period, 20 weeks 07127830 Z3A.20 4919090 950550 AMI CARRION MD [place] [address],[place] [address] 06/10/2025 10:31:02 06/10/2025 11:16:29 screening 308148311 Z36.89 Multigravi da of advanced maternal age 662623829 O09.529 00152575 Gestation period, 24 weeks 875400543 Z3A.24 0230265 729890 AMI CARRION MD [place] [address],[place] [address] 07/08/2025 09:52:05 07/08/2025 11:35:05 Multigravida of advanced maternal age 183644213 O09.523 76361625 Gestation period, 28 weeks 11223923 Z3A.28 3794995 [address] [facility] [address],[place] [address] 07/22/2025 09:45:25 07/22/2025 10:13:19 Gestation period, 30 weeks 80280291 Z3A.30 2188058 747997 MD Michael QUINN [address],[place] [address] 08/07/2025 09:42:22 08/07/2025 10:46:46 Multigravida of advanced maternal age 662403062 O09.523 Z3A.32 54662842 199867 MD Michael QUINN [address],[place] [address] 08/07/2025 09:42:57 08/07/2025 11:20:42 Multigravida of advanced maternal age 712178599 O09.529 91354071 Gestation period, 32 weeks 1521741 Z3A.32 7653327 779706 Dallin Wilson MD [place] [address],[place] [address] 08/17/2025 10:54:26 08/17/2025 12:11:01 care status 332649278 Z34.83 10925032 015489 MD Michael QUINN [address],[place] [address] 09/02/2025 09:51:53 09/02/2025 10:46:47 Multigravida of advanced maternal age 483401218 O09.529 31635155 Gestation period, 36 weeks 14913616 Z3A.36 1275553 730768 MD Michael QUINN [address],[place] [address] 09/07/2025 09:56:21 09/07/2025 10:25:34 Multigravida of advanced maternal age 023853235 O09.529 44235135 Gestation period, 37 weeks 17903163 Z3A.37 7069576 Health Concerns Section Related Observation LastModified by Organization Detai ls LastModified Time None Recorded Concern Status LastModified by Organization Details LastModified Time None Recorded Advance Directives Directive N: Payers Insurance Date Sequence Insurance Name Policy Number Policy Delgado Covered Member ID Delgado Member ID Guarantor Name 09/15/2025 1 [facility] [place] [place] ARD[place]HY Anamika Crowley [id number] Anamika Crowley Notes Date Note Type Note Provider Name and Address Organization Details Recorded Time 08/07/2025 text/html Generic HPI TemplateReported by Patient AMI CARRION MD [address], [place], [address], [facility] 08/07/2025 11:18:10 08/17/2025 text/html Generic HPI TemplateReported by Patient Dallin Wilson MD [address], [place], [address], [facility] 08/17/2025 12:13:08 09/02/2025 text/html Generic HPI TemplateReported by Patient AMI CARRION MD [address], [place], [address], [facility] 09/02/2025 10:44:14 09/07/2025 text/html Generic HPI TemplateReported by Patient AMI CARRION MD [address], [place], [address], [facility] 09/07/2025 10:24:11 OBGyn Episode Ob Episode Information Episode Created Date Number of Fetuses Patient Bloodtype Patient rh Status Prepregnancy Weight lbs Domestic Partner Domestic Partner Phone Father Name Head Filter Tank Tender Helper Status 03/04/20 25 1 A Positive 174 Micah OPEN Fetus Data First Name Last Name Admitted to NICU Weight (g) Sex Living Outcome Pediatric Complications Fetus ID Race Codes Race Delivery Type [id number] Problems Problem Notes Problem Name Start Date End Date Resolution Snomed Code Not e Multigravida of advanced maternal age 0603/04/2025 928842242 Teddy Calculation Initial Teddy Date Initial Exam [...] Days Gestation 0 03/04/2025 09/26/19 26 0 Pre- Flowsheet Flowsheet Date 03/04/2025 Block Score Blood Edema Fundus Height Fundus Units Glucose Ketones Leukocytes Nitrite Labor Signs Protein Cervic Dilation Cervic Effacement Cervic Station Type Weight in lbs Pre/Post Dialysis Refused Weight 174.748360436585 BP Diastolic BP Location Tested BP Systolic BP Type 77 L arm 115 sitting Fetus Heart Rate Present Fetus Movement A No Comments Patient presents to [facility]. No nausea or cramping. Hx of [...] Type Weight in lbs Pre/Post Dialysis Refused 183.974808803219 BP Diastolic BP Location Tested BP Systolic [...] Weight in lbs Pre/Post Dialysis Refused Weight 197.579061106656 BP Diastolic BP Location Tested BP Systolic [...] Weight in lbs Pre/Post Dialysis Refused Weight 195.319927322838 BP Diastolic BP Location Tested BP Systolic [...] Weight in lbs Pre/Post Dialysis Refused Weight 212.232060919966 BP Diastolic BP Location Tested BP Systolic [...] Type Weight in lbs Pre/Post Dialysis Refused 219.971114901043 BP Diastolic BP Location Tested BP Systolic [...] Type Weight in lbs Pre/Post Dialysis Refused 223.706207360741 BP Diastolic BP Location Tested BP Systolic [...] Type Weight in lbs Pre/Post Dialysis Refused 231.133684660349 BP Diastolic BP Location Tested BP Systolic [...] Weight in lbs Pre/Post Dialysis Refused Weight 232.6706988513 BP Diastolic BP Location Tested BP Systolic [...] Weight in lbs Pre/Post Dialysis Refused Weight 231.202974325342 BP Diastolic BP Location Tested BP Systolic [...] Weight in lbs Pre/Post Dialysis Refused Weight 229.870817600912 BP Diastolic BP Location Tested BP Systolic [...] Method Maternal HG B and HCT Levels Ob Episode Information Episode Created Date Number of Fetuses Patient Bloodtype Patient rh Status Prepregnancy Weight lbs Domestic Partner Domestic Partner Phone Father Name Head Filter Tank Tender Helper Status 03/04/20 25 1 CLOSED Fetus Data First Name Last Name Admitted to NICU Weight (g) Sex Living Outcome Pediatric Complications Fetus ID Race Codes Race Delivery Type 4110.45 0704 M Full Term [id number] Vaginal Delivery Teddy Calculation Initial Teddy Date Initial Exam Date Initial Exam Provider Initial Ultrasound Date Last Menstrual Period Date Ultra Sound Weeks Gestation 0 Eighteen To Twenty Week Teddy Update Ultra Sound Date Fundal Height At Umbil Quickening Date Ultra Sound Latest Weeks Gestation Final Teddy Confirmed By Final Teddy Confirmed Date Final Teddy Date Ultra Sound Latest Days Gestation 0 0 Menstrual History Last Menstrual Date Menses Monthly On Bcp Conception Prior Menses Frequency Hcg Plus Date Menarche Onset Age Delivery Information Delivery Date Delivery Type Labor Anesthesia Weeks Gestation Incision Type Labor Labor Length Hrs Delivered By Post Complications Tubal Sterilization Discharge Date Comments 7 40 Discharge Information Feeding Method Contraceptive Method Maternal HG B and HCT Levels Ob Episode Information Episode Created Date Number of Fetuses Patient Bloodtype Patient rh Status Prepregnancy Weight lbs Domestic Partner Domestic Partner Phone Father Name Head Filter Tank Tender Helper Status 03/04/20 25 1 CLOSED Fetus Data First Name Last Name Admitted to NICU Weight (g) Sex Living Outcome Pediatric Complications Fetus ID Race Codes Race Delivery Type , Spontane ous 69699 Teddy Calculation Initial Teddy Date Initial Exam Date Initial Exam Provider Initial Ultrasound Date Last Menstrual Period Date Ultra Sound Weeks Gestation 0 Eighteen To Twenty Week Teddy Update Ultra Sound Date Fundal Height At Umbil Quickening Date Ultra Sound Latest Weeks Gestation Final Teddy Confirmed By Final Teddy Confirmed Date Final Teddy Date Ultra Sound Latest Days Gestation 0 0 Menstrual History Last Menstrual Date Menses Monthly On Bcp Conception Prior Menses Frequency Hcg Plus Date Menarche Onset Age Delivery Information Delivery Date Delivery Type Labor Anesthesia Weeks Gestation Incision Type Labor Labor Length Hrs Delivered By Post Complications Tubal Sterilization Discharge Date Comments 7 Discharge Information Feeding Method Contraceptive Method Maternal HG B and HCT Levels Ob Episode Information Episode Created Date Number of Fetuses Patient Bloodtype Patient rh Status Prepregnancy Weight lbs Domestic Partner Domestic Partner Phone Father Name Head Filter Tank Tender Helper Status 03/04/20 25 1 CLOSED Fetus Data First Name Last Name Admitted to NICU Weight (g) Sex Living Outcome Pediatric Complications Fetus ID Race Codes Race Delivery Type 3826.95 5704 F Full Term 19903 Vaginal Delivery Teddy Calculation Initial Teddy Date Initial Exam Date Initial Exam Provider Initial Ultrasound Date Last Menstrual Period Date Ultra Sound Weeks Gestation 0 Eighteen To Twenty Week Teddy Update Ultra Sound Date Fundal Height At Umbil Quickening Date Ultra Sound Latest Weeks Gestation Final Teddy Confirmed By Final Teddy Confirmed Date Final Teddy Date Ultra Sound Latest Days Gestation 0 0 Menstrual History Last Menstrual Date Menses Monthly On Bcp Conception Prior Menses Frequency Hcg Plus Date Menarche Onset Age Delivery Information Delivery Date Delivery Type Labor Anesthesia Weeks Gestation Incision Type Labor Labor Length Hrs Delivered By Post Complications Tubal Sterilization Discharge Date Comments 2 40.1 Discharge Information Feeding Method Contraceptive Method Maternal HG B and HCT Levels
--- OUTSIDE RECORDS SUMMARY | 2025-09-16 23:41 | XMS_ITS | Encounter Summary ---
Author Organization [facility] Address [address] [place] [address] Care Team Providers Care Buyer Liaison Name Role Phone Joycelyn Gomez MD Primary Care Provider + [phone] Arielle Haynes SPORTS ATHLETIC TRAINER Primary Care Provider + [phone] Joycelyn Gomez MD Primary Care Provider + [phone] [facility] Primary Care Provider + Judy Tse NP Primary Care Provider [phone] Uriah Sevilla Primary Care Provider [phone] Mu Plunkett MD Primary Care Provider [phone] Uriah Sevilla Primary Care Provider [phone] Encounter Details Date Type Department Care Team (Late st Contact Info) Description 06/03/2021 Bubbleball Message [facility] Patient Accounts [address] [place] [address] [facility] RE:financial assistance application Social History [...] Sex Assigned at Female 11/20/2024 9:16 AM PRINCIPAL PLANNER Legal Sex Female 7:00 PM CDT Gender [...] st Contact Info) Description 09/25/2025 8:30 AM PRINCIPAL PLANNER Appointment [facility] [address] [place], [place] [phone] [place] [address] [place], [place] [phone] [place] [address] [place] [address] documented as of this encounter Visit Diagnoses Not on filedocumented in this encounter Additional Health Concerns Infection Onset Date Last Indicated Resolved Time COVID-19 Rule Out 01/31/2022 01/31/2022 01/31/2022 3:20 PM CDT COVID-19 Confirmed 01/31/2022 01/31/2022 12:32 AM CDT COVID-19 Rule Out 06/23/2022 06/23/2022 06/23/2022 12:16 PM CDT COVID-19 Rule Out 11/02/2022 11/02/2022 11/02/2022 1:59 PM PRINCIPAL PLANNER Assessment Noted Time PHQ-9 Depression Total Score: 0 05/04/20 21 1:11 PM CDT documented as of this encounter Care Teams Buyer Liaison Relationship Specialty Start Date End Date Joycelyn Gomez MD PCP - General INTERNAL MEDICINE 07/28/20 11/28/22 [place] [address] [place] [address] PCP - General Nurse Practitioner Family 12/29/2212/23 Joycelyn Gomez MD PCP - General INTERNAL MEDICINE 11/29/22 12/28/[address] [facility] [address] [place] [address] PCP - General 01/02/23 01/30/23 [place] [address], [address] [place] [address] PCP - General Nurse Practitioner Family 01/31/2310/25 [place] [address] [place] [address] PCP - General Physician Plant Maintenance Worker Medical 11/12/23 08/24/25 Mu Plunkett MD [address] [place] [address] PCP - General OBGYN 08/25/25 08/30/25 [place] [address] [place], [place] [id number] PCP - General PHYSICIAN VALET PARKING ATTENDANT 08/31/25 documented as of this encounter
--- OUTSIDE RECORDS SUMMARY | 2025-09-16 23:41 | XMS_ITS | Encounter Summary ---
Author Organization [facility] Address [address] [place] [address] Care Team Providers Care Mail Rider Name Role Phone Shanelle Funk CIA AGENT Primary Care Provider Joycelyn Truong MD Primary Care Provider + [phone] Arielle Haynes CIA AGENT Primary Care Provider + [phone] Joycelyn Gomez MD Primary Care Provider + [phone] [facility] Primary Care Provider + Judy Tse NP Primary Care Provider [phone] Uriah Sevilla Primary Care Provider [phone] Mu Plunkett MD Primary Care Provider [phone] Uriah Sevilla Primary Care Provider [phone] Encounter Details Date Type Department Care Team (Late st Contact Info) Description 09/14/2016 Abstract [facility] CONVERSION [address] [place] [address] , Generic MD Jania Social History Tobacco Use Types Packs/Day Years Used Date Smoking Tobacco: Never Assessed Comments Unknown Sex and Gender Information Value Date Recorded Sex Assigned at Female 11/20/2024 9:16 AM INDUSTRIAL ORGANIZATIONAL PSYCHOLOGIST Legal Sex Female 7:00 PM CDT Gender Identity Not on file Sexual Orientation Not on file documented as of this encounter Plan of Treatment Upcoming Encounters Date Type Department Care Team (Late st Contact Info) Description 09/25/2025 8:30 AM INDUSTRIAL ORGANIZATIONAL PSYCHOLOGIST Appointment [facility] [address] [address] [facility] [place] [phone] [place] [address] [facility] [place] [address] [place] [address] [place], [place] [phone] documented as of this encounter Visit Diagnoses [...] Rule Out 11/02/2022 11/02/2022 11/02/2022 1:59 PM INDUSTRIAL ORGANIZATIONAL PSYCHOLOGIST documented as of this encounter Care Teams Mail Rider Relationship Specialty Start Date End Date Shanelle Funk NP PCP - General 07/04/16 07/27/20 Joycelyn Gomez MD PCP - General INTERNAL MEDICINE 07/28/20 11/28/22 [place] [address] [facility] [place] [address] PCP - General Nurse Practitioner Family 12/29/2212/23 Joycelyn Gomez MD PCP - General INTERNAL MEDICINE 11/29/22 12/28/22 Uma Tomlin, [facility] [address] [place] [address] PCP - General 01/02/23 01/30/23 Judy Tse, ARCHIE [address] [place] [address] PCP - General Nurse Practitioner Family 01/31/2310/25 [place] [address] [place] [address] PCP - General Physician Road Manager Medical 11/12/23 08/24/25 Mu Plunkett MD [address] [place] [address] PCP - General OBGYN 08/25/25 08/30/25 [place] [address] [place] [address] PCP - General PHYSICIAN OFFICE DIRECTOR 08/31/25 documented as of this encounter
--- OUTSIDE RECORDS SUMMARY | 2025-09-16 23:41 | XMS_ITS | Continuity of Care Document ---
Author Organization [facility] Address [address] [place] [address] Care Team Providers Care Port Cdl A Driver Name Role Phone FRANTZ ZHANG Primary Care Provider Assessment Encounter Date Assessment Date Assessment LastModified by Organization Details LastModified Time 07/22/2025 07/22/2025 Patient is _30__weeks . Discussed plan. Not available 07/22/2025 10:12:18 Plan of Treatment Reminders Order Date Submit [...] Not Available Alice villarreal [address], [place], [address], 03/10/2025 07:42:34 03/10/20 25 03/10/2025 [UNIT Y] ANEUP LOIDY NIPT sex chromosome aneuploidy NOT DETECT ED normal Not Available Pilar monson [address], [place], [address], 03/10/2025 07:42:34 03/10/20 25 03/10/2025 [UNIT Y] ANEUP LOIDY NIPT monosomy X LOW RISK <1 in 10,000 normal Not Available [facility] [address], [place], [address], 03/10/2025 07:42:34 03/10/20 25 03/10/2025 [UNIT Y] ANEUP LOIDY NIPT trisomy 13 LOW RISK <1 in 10,000 normal Not Available [facility] [address], [place], [address], 03/10/2025 07:42:34 03/10/20 25 03/10/2025 [UNIT Y] ANEUP LOIDY NIPT trisomy 18 LOW RISK <1 in 10,000 normal Not Available [facility] [address], [place], [address], 03/10/2025 07:42:34 03/10/20 25 03/10/2025 [UNIT Y] ANEUP LOIDY NIPT trisomy 21 LOW RISK <1 in 10,000 normal Not Available [facility] [address], [place], [address], 03/10/2025 07:42:34 03/10/20 25 03/10/2025 [UNIT Y] ANEUP LOIDY NIPT sex FEMALE normal Not Available [facility] [address], [place], [address], 03/10/2025 07:42:34 03/10/20 25 03/10/2025 [UNIT Y] ANEUP LOIDY NIPT gestation SINGLE TON normal Not Available [facility] [address], [place], [address], 03/10/2025 07:42:34 03/10/20 25 03/10/2025 [UNIT Y] ANEUP LOIDY NIPT for detailed report, see pdf See PDF normal Not Available [facility] [address], [place], [address], 03/10/2025 07:42:34 03/13/20 25 03/13/2025 [UNIT Y] ANGELITO JAZMÍN Arzate sickle cell disease/beta -thalassemia /hemoglobino pathies carrier screen NEGATI VE normal Not Available [facility] [address], [place], [address], 03/13/2025 20:27:17 03/13/20 25 03/13/2025 [UNIT Y] ANGELITO JAZMÍN Arzate alpha-thalas semia carrier screen NEGATI VE normal Not Available [facility] [address], [place], [address], 03/13/2025 20:27:17 03/13/20 25 03/13/2025 [UNIT Y] ANGELITO Arzate cystic fibrosis carrier screen NEGATI VE normal Not Available [facility] [address], [place], [address], 03/13/2025 20:27:17 03/13/20 25 03/13/2025 [UNIT Y] ANGELITO Arzate spinal muscular atrophy carrier screen NEGATI VE 2 SMN1 copies , SNP not presen t normal Not Available [facility] [address], [place], [address], 03/13/2025 20:27:17 03/13/20 25 03/13/2025 [UNIT Y] ANGELITO JAZMÍN Arzate for detailed report, see pdf See PDF normal Not Available [facility] [address], [place], [address], 03/13/2025 20:27:17 03/04/20 25 03/04/2025 HEPAT ITIS C ANTIB BRODERICK ROLANDO Arzate, REFLE X TO CONFI RMATI ON hepatitis C antibody Non-re active non-re active Antib odies to HCV Not Detec carrington, does not exclu de the possi bilit y of expos ure to HCV. Not Available [facility] (Lab) [address] [facility], [place], [address], 03/05/2025 10:19:41 03/04/2003/04/2025 HEPAT ITIS B SURFA CE ANTIG EN hepatitis B surface antigen Non-re active non-re active This assay was perfo rmed using [employer] ratio n reage nts and test kits. Value s obtai neelima with other assay metho ds or kits canno t be used inter curran eably . Not Available [facility] (Lab) [address] [facility], [place], [address], 03/05/2025 10:19:41 03/04/2003/04/2025 HIV 1/2 ANTIG EN/AN TIBOD Y, REFLE X CONFI RMATI ON HIV antigen/anti body Nonrea ctive nonrea ctive HIV-1 antig en and HIV-1 /HIV- 2 antib odies were not detec carrington. No labor atory evide nce of HIV infec tion. Not Available [facility] (Lab) [address] [facility], [place], [address], 03/05/2025 10:19:41 03/04/2003/04/2025 RUBEL LA IGG ANTIB BRODERICK, QUANT rubella antibodies, IgG Reacti ve reacti ve Not Available [facility] (Lab) [address] [facility], [place], [address], 03/05/2025 10:19:42 03/04/2003/04/2025 RUBEL LA IGG ANTIB BRODERICK, QUANT rubella antibodies, IgG quant 14.3 IU/mL >=10 Non-r eacti ve (Non- Immun e) <10 IU/mL React gisele (Immu ne) > or = 10 IU/mL Not Available [facility] (Lab) [address] [facility], [place], [address], 03/05/2025 10:19:42 06/11/20 25 03/04/2025 CBC W/DIF F WBC 9.6 10'3/ uL 3.5-10 .5 Not Available [facility] (Lab) [address], [place], [address], 03/05/2025 10:19:42 03/04/20 25 03/04/2025 CBC W/DIF F RBC 3.79 10'6/ uL (based on docume nted legal sex) 3.80-5 .20 low Not Available [facility] (Lab) [address], [place], [address], 03/05/2025 10:19:42 03/04/20 25 03/04/2025 CBC W/DIF F HGB 12.3 g/dL (based on docume nted legal sex) 11.6-1 5.4 Not Available [facility] (Lab) [address], [place], [address], 03/05/2025 10:19:42 03/04/20 25 03/04/2025 CBC W/DIF F HCT 38.4 % (based on docume nted legal sex) 34.0-4 5.0 Not Available [facility] (Lab) [address], [place], [address], 03/05/2025 10:19:42 03/04/20 25 03/04/2025 CBC W/DIF F MCV 101.3 fL 80.0-9 9.0 high Not Available [facility] (Lab) [address], [place], [address], 03/05/2025 10:19:42 03/04/20 25 03/04/2025 CBC W/DIF F MCH 32.5 pg 27.0-3 4.0 Not Available [facility] (Lab) [address], [place], [address], 03/05/2025 10:19:42 03/04/20 25 03/04/2025 CBC W/DIF F MCHC 32.0 g/dL 32.0-3 5.5 Not Available [facility] (Lab) [address] [facility], [place], [address], 03/05/2025 10:19:42 03/04/2003/04/2025 CBC W/DIF F RDW 14.6 % 11.0-1 5.0 Not Available [facility] (Lab) [address] [facility], [place], [address], 03/05/2025 10:19:42 03/04/20 25 03/04/2025 CBC W/DIF F plt 245 10'3/ uL 150-40 0 Not Available [facility] (Lab) [address] [facility], [place], [address], 03/05/2025 10:19:42 03/04/20 25 03/04/2025 CBC W/DIF F MPV 10.8 fL 8.8-12 .1 Not Available [facility] (Lab) [address] [facility], [place], [address], 03/05/2025 10:19:42 03/04/20 25 03/04/2025 CBC W/DIF F NRBC's 0.0 % 0.0 Not Available [facility] (Lab) [address] [facility], [place], [address], 03/05/2025 10:19:42 03/04/20 25 03/04/2025 CBC W/DIF F absolute NRBCs 0.0 10'3/ uL no refere nce range establ ished Not Available [facility] (Lab) [address] [facility], [place], [address], 03/05/2025 10:19:42 03/04/20 25 03/04/2025 CBC W/DIF F neutrophils 66.6 % 34.0-7 3.0 Not Available [facility] (Lab) [address] [facility], [place], [address], 03/05/2025 10:19:42 03/04/20 25 03/04/2025 CBC W/DIF F lymphocytes 21.0 % 15.0-5 0.0 Not Available [facility] (Lab) [address] [facility], [place], [address], 03/05/2025 10:19:42 03/04/20 25 03/04/2025 CBC W/DIF F monocytes 8.9 % 1.0-15 .0 Not Available [facility] (Lab) [address] [facility], [place], [address], 03/05/2025 10:19:42 03/04/20 25 03/04/2025 CBC W/DIF F eosinophils 2.5 % 0.0-8. 0 Not Available [facility] (Lab) [address] [facility], [place], [address], 03/05/2025 10:19:42 03/04/20 25 03/04/2025 CBC W/DIF F basophils 0.7 % 0.0-2. 0 Not Available [facility] (Lab) [address] [facility], [place], [address], 03/05/2025 10:19:42 03/04/20 25 03/04/2025 CBC W/DIF [...] separ ately if prese nt. Not Available [facility] (Lab) [address] [facility], [place], [address], 03/05/2025 10:19:42 03/04/20 25 03/04/2025 CBC W/DIF F absolute neutrophils 6.4 10'3/ uL 1.5-8. 0 Not Available [facility] (Lab) [address] [facility], [place], [address], 03/05/2025 10:19:42 03/04/20 03/04/2025 CBC W/DIF F absolute lymphocytes 2.0 10'3/ uL 1.0-4. 0 Not Available [facility] (Lab) [address] [facility], [place], [address], 03/05/2025 10:19:42 03/04/2003/04/2025 CBC W/DIF F absolute monocytes 0.9 10'3/ uL 0.2-1. 0 Not Available [facility] (Lab) [address] [facility], [place], [address], 03/05/2025 10:19:42 03/04/2003/04/2025 CBC W/DIF F absolute eosinophils 0.2 10'3/ uL 0.0-0. 6 Not Available [facility] (Lab) [address] [facility], [place], [address], 03/05/2025 10:19:42 03/04/2003/04/2025 CBC W/DIF F absolute basophils 0.1 10'3/ uL 0.0-0. 3 Not Available [facility] (Lab) [address] [facility], [place], [address], 03/05/2025 10:19:42 03/04/2003/04/2025 CBC W/DIF F absolute immature granulocytes 0.0 10'3/ uL 0.00-0 .10 Refer ence range s for nonbi nary/ inter sex or unspe cifie d gende r patie nts have not been estab lishe d. [facility]as [facility] for range s estab lishe d for cisge nder patie nts and evalu ate in the clini mariano alonzo xt of the indiv idual patie nt: https ://priyanka rodriguez book. nm.or g/gen derx Not Available [facility] (Lab) [address] [facility], [place], [address], 03/05/2025 10:19:42 03/04/2003/04/2025 TYPE/ RH/SC REEN ABO/Rh type A POS Not Available [facility] (Lab) [address] [facility], [place], [address], 03/05/2025 10:19:42 03/04/20 25 03/04/2025 TYPE/ RH/SC REEN antibody screen NEG Not Available [facility] (Lab) [address] [facility], [place], [address], 03/05/2025 10:19:42 03/04/20 25 03/04/2025 TYPE/ RH/SC REEN exp date 2024 23:59 Not Available [facility] (Lab) [address] [facility], [place], [address], 03/05/2025 10:19:42 03/04/20 25 03/04/2025 HEMOG LOBIN [...] >8.0% Actio n sugge sted Not Available [facility] (Lab) [address] [facility], [place], [address], 03/05/2025 10:19:43 03/04/20 25 03/04/2025 RPR SCREE N, REFLE X TITER /CONF IRMAT ION RPR qualitative Nonrea ctive nonrea ctive Not Available [facility] (Lab) [address] [facility], [place], [address], 03/05/2025 10:19:43 03/04/20 25 03/04/2025 CT/GC AND TRICH OMONA S VAGIN ISABEL (RRNA ), URINE chlamydia trachomatis, PCR Negati ve negati ve Not Available [facility] (Lab) [address] [facility], [place], [address], 03/06/2025 00:29:18 03/04/2003/04/2025 CT/GC AND TRICH OMONA S VAGIN ISABEL (RRNA ), URINE neisseria gonorrhoeae, PCR Negati ve negati ve Not Available [facility] (Lab) [address] [facility], [place], [address], 03/06/2025 00:29:18 03/04/2003/04/2025 CT/GC AND TRICH OMONA S VAGIN ISABEL (RRNA ), URINE trichomonas vaginalis ribosomal RNA (rrna) Negati ve negati ve Not Available [facility] (Lab) [address] [facility], [place], [address], 03/06/2025 00:29:18 03/04/2003/04/2025 CULTU RE: URINE result report SEE RESULT S BELOW Test: Cultu re: Urine Speci men Sourc e: Urine Voide d Speci men Type: Urine Speci men Date: 2024 1056 Resul t Date: 2024 2325 Resul t Statu s: Final resul t Abnor mal: No Resul ting Lab: [facility] [address] [facility] [address] Tel: CULTU RE ----- ----- ----- --- Cultu re resul t (>=3 organ isms prese nt) indic ates possi ble conta minat ion. Repea t cultu re if sympt oms indic ate. Not Available [facility] (Lab) [address] [facility], [place], [address], 03/06/2025 00:29:19 03/19/2003/19/2025 CULTU RE: URINE result report SEE RESULT S BELOW Test: Cultu re: Urine Speci men Sourc e: Urine Voide d Speci men Type: Urine Speci men Date: 2024 1709 Resul t Date: 2024 0322 Resul t Statu s: Final resul t Abnor mal: No Resul ting Lab: [facility] [address] [facility] [address] Tel: CULTU RE ----- ----- ----- --- No growt h in 1 day (dete ction level of 10,00 0 colon ies / ml.) Not Available [facility] (Lab) [address] [facility], [place], [address], 03/21/2025 04:28:02 03/19/2003/19/2025 CULTU RE: URINE result report SEE RESULT S BELOW Test: Cultu re: Urine Speci men Sourc e: Urine Voide d Speci men Type: Urine Speci men Date: 2024 Resul t Date: 20241 Resul t Statu s: Final resul t Abnor mal: No Resul ting Lab: [facility] [address] [facility] [address] Tel: CULTU RE ----- ----- ----- --- Cultu re resul t (>=3 organ isms prese nt) indic ates possi ble conta minat ion. Repea t cultu re if sympt oms indic ate. Not Available [facility] (Lab) [address] [place], [address], 03/21/2025 22:45:05 07/08/20 25 07/08/2025 HEMOG LOBIN (HGB) HGB 11.1 g/dL (based on docume nted legal sex) 11.6-1 5.4 low Not Available [facility] (Lab) [address] [facility], [place], [address], 07/09/2025 11:13:10 07/08/20 25 07/08/2025 HEMAT OCRIT (HCT) HCT 34.0 % (based on docume nted legal sex) 34.0-4 5.0 Not Available [facility] (Lab) [address] [facility], [place], [address], 07/09/2025 11:13:11 07/08/2007/08/2025 GTT - GESTA TARIQ L SCREE N, ACOG OB glucose, 1 hour screen 171 mg/dL 70-135 high Not Available [facility] (Lab) [address] [facility], [place], [address], 07/09/2025 11:13:11 07/08/2007/08/2025 HIV 1/2 ANTIG EN/AN TIBOD Y, REFLE X CONFI RMATI ON HIV antigen/anti body Nonrea ctive nonrea ctive HIV-1 antig en and HIV-1 /HIV- 2 antib odies were not detec carrington. No labor atory evide nce of HIV infec tion. Not Available [facility] (Lab) [address] [facility], [place], [address], 07/09/2025 11:13:12 07/08/2007/08/2025 RPR SCREE N, REFLE X TITER /CONF IRMAT ION RPR qualitative Nonrea ctive nonrea ctive Not Available [facility] (Lab) [address] [facility], [place], [address], 07/09/2025 11:13:12 07/16/2007/16/2025 GTT - GESTA TARIQ L, 3 HOUR, ACOG glucose, fasting acog 80 mg/dL 70-94 Not Available [facility] (Lab) [address] [facility], [place], [address], 07/17/2025 05:25:34 07/16/20 25 07/16/2025 GTT - GESTA TARIQ L, 3 HOUR, ACOG glucose, 1 hour acog 175 mg/dL 70-179 Not Available [facility] (Lab) [address] [facility], [place], [address], 07/17/2025 05:25:34 07/16/20 25 07/16/2025 GTT - GESTA TARIQ L, 3 HOUR, ACOG glucose, 2 hour acog 154 mg/dL 70-154 Not Available [facility] (Lab) [address] [facility], [place], [address], 07/17/2025 05:25:34 07/16/20 25 07/16/2025 GTT - GESTA TARIQ L, 3 HOUR, ACOG glucose, 3 hour acog 72 mg/dL 70-139 Not Available [facility] (Lab) [address] [facility], [place], [address], 07/17/2025 05:25:34 03/04/20 25 03/03/2025 US, obste tric, follo w-up No observ ation record ed. [email or web address] [address], [place], [address], 03/07/2025 21:37:38 03/04/20 25 03/03/2025 US, obste tric, 1st trime ster No observ ation record ed. [email or web address] [address] [address], [place], [address], 03/09/2025 12:28:15 03/19/20 25 03/19/2025 US, obste tric, nucha l trans lucen cy No observ ation record ed. [facility] [address], [place], [address], 03/19/2025 17:52:27 03/19/20 25 03/19/2025 US, obste tric, 1st trime ster No observ ation record ed. [facility] [address], [place], [address], 03/19/2025 17:52:36 03/19/20 25 03/19/2025 US, obste tric, follo w-up No observ ation record ed. [address] [address], [place], [address], 03/23/2025 09:26:34 04/06/20 25 04/06/2025 imagi ng/di agnos tic resul t No observ ation record ed. KAREN [address], [place], [address], 04/13/2025 12:13:32 05/13/20 25 05/13/2025 US, obste tric, 2nd or 3rd trime ster No observ ation record ed. [email or web address] [facility] [address], [place], [address], 05/13/2025 18:22:31 05/13/20 25 05/13/2025 US, obste tric, 2nd or 3rd trime ster No observ ation record ed. [email or web address] [address] [address], [place], [address], 05/13/2025 16:32:33 08/07/20 25 08/07/2025 US, obste tric, follo w-up No observ ation record ed. [email or web address] [facility] [address], [place], [address], 08/07/2025 13:46:32 08/07/20 25 08/07/2025 US, obste tric, follo w-up No observ ation record ed. [facility] [address], [place], [address], 08/24/2025 11:16:22 Result Notes None recorded. Problems Name Problem SNOMED Code Status Onset Date Resolution Date Notes Provider Name and Address Organization Details Recorded Time 22795986 Active 2024 Jackelin Teixeira [facility] [place] - [facility] 09:55:04 Multigravida of advanced maternal age 970441150 Active 2024 AMI CARRION MD [address], [place], [address], [place] [facility] 5 15:47:41 Problem Notes None recorded. Procedures Surgical History Date Name Laterality Status Provider Name and Address Organization Details Recorded Time 5 Date of Last Pap Smear completed [facility] 03/04/2025 09:47:11 6 Colonoscopy completed [facility] 03/04/2025 09:54:07 7 Dilation and Curettage completed [facility] 03/04/2025 09:54:13 Imaging Results None recorded. Procedure Notes None recorded. Medical Equipment None Reported. Allergies Allergen ID Allergen Name Allergen Category Reaction Reaction Severity Criticality Documentation Date Start Date Code Code System Note Provider Name and Address Organization Details Recorded Time 68298 tramadol medicatio n Not available Not available Not available 03/04/2025 41487 RxNorm [facility] 5 09:46:55 91330 nickel sulfate Not available rash Not available low 09/02/20252015 23640 RxNorm Not Available berger - External Data Service - prod 5 [...] Not Available No t Available amoxicillin 875 mg-potgabyu m clavulanate 125 mg tablet TAKE 1 [...] and Address Organization Details Last Updated DateTime 07/22/2025 940437.91156 g 113/77 mm[Hg] Jackelin Teixeira [facility] 07/22/2025 10:02:28 Social History Question Answer Notes LastModified by [...] Or The Highest Degree You Have Received? [id number] Information not available 03/04/2025 Are There Any [...] anxious, or unable to sleep at night)? SR58853-4 Information not available 03/04/2025 Family History Relationship [...] ICD10 Code Diagnosis IMO Codes Diagnosis Note [id number] AMI CRARION MD [facility] [address] [address] 07/08/2025 09:52:05 07/08/2025 11:35:05 Multigravida of advanced maternal age 819102007 O09.523 [id number] Gestation period, 28 weeks 72358701 Z3A.28 [id number] Lila Hernández CNM [facility] [address] [address] 07/22/2025 09:45:25 07/22/2025 10:13:19 Gestation period, 30 weeks 90074045 Z3A.30 [id number] Health Concerns Section Related Observation LastModified by Organization Detai ls LastModified Time None Recorded Concern Status LastModified by Organization Details LastModified Time None Recorded Payers Encounter Date Sequence Insurance Name Policy Number Policy Delgado Covered Member ID Delgado Member ID Guarantor Name 07/22/[address] [facility] (O) [facility] Anamika Crowley [id number] Anamika Keo Notes Date Note Type Note Provider Name and Address Organization Details Recorded Time 07/22/2025 text/html Generic HPI TemplateReported by Patient Lila Geena Hernández, CNAreli [address], [place], [address], [facility] 07/22/2025 10:12:25 OBGyn Episode Ob Episode Information Episode Created Date Number of Fetuses Patient Bloodtype Patient rh Status Prepregnancy Weight lbs Domestic Partner Domestic Partner Phone Father Name Watch Assembler Status 03/04/20 25 1 A Positive 174 Micah OPEN Fetus Data First Name Last Name Admitted to NICU Weight (g) Sex Living Outcome Pediatric Complications Fetus ID Race Codes Race Delivery Type [id number] Problems Problem Notes Problem Name Start Date End Date Resolution Snomed Code Not e Multigravida of advanced maternal age 0603/04/2025 [id number] Teddy Calculation Initial Teddy Date Initial Exam [...] Date Ultra Sound Latest Days Gestation 0 [id number] 03/04/2025 09/26/19 26 0 Pre-diane Flowsheet Flowsheet Date 03/04/2025 Block Score Blood Edema Fundus Height Fundus Units Glucose Ketones Leukocytes Nitrite Labor Signs Protein Cervic Dilation Cervic Effacement Cervic Station Type Weight in lbs Pre/Post Dialysis Refused Weight 174.475420777037 BP Diastolic BP Location Tested BP Systolic BP Type 77 L arm 115 sitting Fetus Heart Rate Present Fetus Movement A No Comments Patient presents to [facility] care. No nausea or cramping. Hx [...] Type Weight in lbs Pre/Post Dialysis Refused 183.964526738107 BP Diastolic BP Location Tested BP Systolic [...] Weight in lbs Pre/Post Dialysis Refused Weight 197.278995673878 BP Diastolic BP Location Tested BP Systolic [...] Weight in lbs Pre/Post Dialysis Refused Weight 195.939782171652 BP Diastolic BP Location Tested BP Systolic [...] Weight in lbs Pre/Post Dialysis Refused Weight 212.655563834114 BP Diastolic BP Location Tested BP Systolic [...] Type Weight in lbs Pre/Post Dialysis Refused 219.374802366489 BP Diastolic BP Location Tested BP Systolic [...] Type Weight in lbs Pre/Post Dialysis Refused 223.491631717017 BP Diastolic BP Location Tested BP Systolic [...] Type Weight in lbs Pre/Post Dialysis Refused 231.120887575463 BP Diastolic BP Location Tested BP Systolic [...] Weight in lbs Pre/Post Dialysis Refused Weight 232.7018616070 BP Diastolic BP Location Tested BP Systolic [...] Weight in lbs Pre/Post Dialysis Refused Weight 231.543873775014 BP Diastolic BP Location Tested BP Systolic [...] Weight in lbs Pre/Post Dialysis Refused Weight 229.485485038009 BP Diastolic BP Location Tested BP Systolic [...]
--- OUTSIDE RECORDS SUMMARY | 2025-09-16 23:41 | XMS_ITS | Encounter Summary ---
Author Organization [facility] Address [address] [place] [address] Care Team Providers Care Production Operations Manager Name Role Phone Uriah Sevilla Primary Care Provider [phone] Encounter Details Date Type Department Care Team (Latest Contact Info) Description 09/15/2025 Travel Social History Tobacco Use Types Packs/Day Years [...] Sex Assigned at Female 11/20/2024 9:16 AM INSURANCE ACTUARY Legal Sex Female 7:00 PM CDT Gender Identity Not on file Sexual Orientation Not on file documented as of this encounter Plan of Treatment Upcoming Encounters Date Type Department Care Team (Late st Contact Info) Description 09/25/2025 8:30 AM INSURANCE ACTUARY Appointment [facility] [address] [place], [place] [phone] [place] [address] [place], [place] [id number] [place] [address] [place] [address] documented as of this encounter Visit Diagnoses Not on filedocumented in this encounter Additional Health Concerns Assessment Noted Time PHQ-9 Depression Total Score: 1 02/01/20 22 9:49 AM CDT documented as of this encounter Care Teams Production Operations Manager Relationship Specialty [place] [address] [place] [address] PCP - General PHYSICIAN BELLMAN CAPTAIN 08/31/25 documented as of this encounter
--- OUTSIDE RECORDS SUMMARY | 2025-09-16 23:41 | XMS_ITS | Encounter Summary ---
Author Organization [facility] Address [address] [place] [address] Care Team Providers Care Development Assistant Name Role Phone Judy Tse NP Primary Care Provider Uriah Sevilla Primary Care Provider [phone] Mu Plunkett MD Primary Care Provider [phone] Uriah Sevilla Primary Care Provider [phone] Encounter Details Date Type Department Care Team (Late st Contact Info) Description 03/01/2023 MyChart Message Enc [facility] Family & Internal Medicine [address] [address] [facility], [facility] Provider Reschedule appt on 03/21/23 Social History [...] Sex Assigned at Female 11/20/2024 9:16 AM LAMINATOR [employer] Legal Sex Female 7:00 PM CDT Gender [...] st Contact Info) Description 09/25/2025 8:30 AM LAMINATOR [employer]DS Appointment [facility] [address] [place], [place] [phone] [place] [address] [place] [address] [place] [address] [place], [place] [phone] documented as of this encounter Visit Diagnoses Not on filedocumented in this encounter Additional Health Concerns Assessment Noted Time PHQ-9 Depression Total Score: 1 02/01/20 22 9:49 AM CDT documented as of this encounter Care Teams Development Assistant Relationship Specialty [place] [address] [facility], [facility] [[email or web address] [address] [place], [place] [phone] PCP - General Nurse Practitioner Family 01/31/2310/25 [place] [address] [place] [address] PCP - General Physician Pediatric Care Coordinator Medical 11/12/23 08/24/25 Mu Plunkett MD [address] [place] [address] PCP - General OBGYN 08/25/25 08/30/25 [place] [address] [place] [address] PCP - General PHYSICIAN SIMULATION ENGINEER 08/31/25 documented as of this encounter
--- OUTSIDE RECORDS SUMMARY | 2025-09-16 23:41 | XMS_ITS | Clinical Summary ---
Author Organization [facility] Care Team Providers Care Workers Compensation Adjuster Name Role Phone Uriah Sevilla Primary Care Provider [phone]- [phone] Allergies Active Allergy Reactions Criticality Noted Date Comments Tramadol Flushing (skin) Low 08/25/2025 Medications vit 96-[id number] dawson 27mg iron- 800 mcg-250 mg capsuleIndicati ons: Take 1 tablet by mouth daily Active white petrolatum-mine ral oil (REFRESH PM) ointment Apply 1 Application to both eyes 4 (four) times a day 5 g 1 5 Active predniSONE (DELTASONE) 20 mg tablet Take 3 tablets (60 mg) by mouth daily for 5 days 15 tablet 5 08/30/20 25 Encounters Date Type Department Care Team Description 08/25/2025 1:44 PM NEONATAL SPECIALIST - 08/25/2025 7:00 PM NEONATAL SPECIALIST Emergency [address] [id number] Ivana Morelos MD Armstrong, MD Kishore Peralta, Mik Fierro MD 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 Never 08/25/2025 Q2: How many drinks containi ng alcohol do you have on a typical day when you are drinking? Patient does not drink Q3: How often do you have si x or more drinks on one occasion? Never 08/25/2025 Personal Safety Answer Date Recorded Have you ever been in or are you currently in a harmful physical or emotional relationship or is someone making you feel afraid or unsafe? Denies 08/25/2025 Estimated Date of Delivery Comme nts Yes 09/25/2025 Date entered damaris or to episode creation Sex and Gender Information Value Date Recorded Sex Assigned at Not on file Legal Sex Female 1:43 PM CDT Gender Identity Not on file Sexual Orientation Not on file Obstetrics History Para Term AB IAB SAB Ectopic Multiple Livin g Live Births 4 2 2 1 2 2 Date Outcome GA Total Labor Labor/2nd/3rd Weight Sex Type Anes PTL Yareli A1 A5 Name Clin AB 10/18 Term F Vaginal Living 05/15 Term M Vaginal Living Current Summary Episode Dates Number of Fetuses Estimated Date of Delivery 08/25/2025 - Present (09/16/2025) 09/25/2025 (based on Alternate MARILEE Entry) Dating Summary Based On MARILEE GA Diff Alternate MARILEE Entry 09/25/2025 Working Comment:Date entered prior t o episode creation Vitals Pregravid Weight Height TWG (As of 09/16/2025) Pregrav id BMI 165.1 cm (5' 5) Date GA Fund Present FHR Mvmt BP Weight Edema Alb Glu Ket Dil/ Eff/Sta 5 35w4d Inpatient data not displayed here. See encounter summary. Last Filed Vital Signs Vital Sign Reading Time Taken Comments Blood Pressure 119/80 08/25/2025 5:32 PM NEONATAL SPECIALIST Pulse 86 08/25/2025 5:32 PM NEONATAL SPECIALIST Temperature 36.7 C (98.1 F) 08/25/2025 5:32 PM NEONATAL SPECIALIST Respiratory Rate 18 08/25/2025 5:32 PM NEONATAL SPECIALIST Oxygen Saturation 98% 08/25/2025 5:32 PM NEONATAL SPECIALIST Inhaled Oxygen Concentration - - Weight 102.1 kg (225 lb) 08/25/2025 5:30 PM NEONATAL SPECIALIST Height 165.1 cm (5' 5) 08/25/2025 5:30 PM NEONATAL SPECIALIST Body Mass Index 37.44 08/25/2025 5:30 PM NEONATAL SPECIALIST Plan of Treatment Health Maintenance Due Date Last Done Comments Depression Screening 1986 Hepatitis C Screening 1986 Varicella Vaccines (1 of 2 - 13+ 2-dose series) 1999 Regular Well Visit/Exam 18-64 2004 Pneumococcal vaccine <65 (1 of 2 - PCV) 2005 Covid-19 Vaccine (3 - 2024-2 6 season) 2025 01/06/2021, 12/15/2020 Cervical Cancer Screening 02/05/2026 02/05/2025 DTaP/Tdap/Td Vaccine (5 - Td or Tdap) 07/09/2035 07/09/2025, 04/25/2017, 04/13/2017, Additional history exists HPV Vaccines Completed 07/16/2008, 10/25, 08/28/2007 Hepatitis B Screening Completed 10/30/2012 Influenza Vaccine Completed 07/09/2025, , 07/16/2023, Additional history exists Procedures Procedure Name Priority Date/Time Associated Diagnosis Comments URINALYSIS, MICROSCOPIC ONLY Routine 08/25/2025 2:31 PM NEONATAL SPECIALIST B CHECK SAMPLE STAT 08/25/2025 2:31 PM NEONATAL SPECIALIST PROTEIN / CREATININE RATIO, URINE, RANDOM Routine 08/25/2025 2:31 PM NEONATAL SPECIALIST URINE CULTURE Routine 08/25/2025 2:31 PM NEONATAL SPECIALIST URINALYSIS AND REFLEX TO MICROSCOPIC AND CULTURE Routine 08/25/2025 2:31 PM NEONATAL SPECIALIST POCUS FEMALE TAB PELVIC, NON- 08/25/2025 2:25 PM NEONATAL SPECIALIST EGFR STAT 08/25/2025 2:20 PM NEONATAL SPECIALIST DIFFERENTIAL AUTO STAT 08/25/2025 2:2 0 PM NEONATAL SPECIALIST FIBRINOGEN Routine 08/25/2025 2:20 PM NEONATAL SPECIALIST APTT Routine 08/25/2025 2:20 PM NEONATAL SPECIALIST PROTIME-INR Routine 08/25/2025 2:20 PM NEONATAL SPECIALIST MAGNESIUM STAT 08/25/2025 2:20 PM NEONATAL SPECIALIST BASIC METABOLIC PANEL STAT 08/25/2025 2:20 PM NEONATAL SPECIALIST HEPATIC FUNCTION PANEL STAT 08/25/2025 2:20 PM NEONATAL SPECIALIST CBC WITH AUTO DIFFERENTIAL STAT 08/25/2025 2:20 PM NEONATAL SPECIALIST TYPE AND SCREEN Timed 08/25/2025 2:20 PM NEONATAL SPECIALIST from Last 3 Months Results * Check Sample (08/25/2025 2:31 PM NEONATAL SPECIALIST) Pathologist [facility] ABO Rh A Positive [facility] OTHER 08/25/2025 2:31 PM NEONATAL SPECIALIST 08/25/2025 2:39 PM NEONATAL SPECIALIST us Ivana Morelos MD LAB BLOOD ORDERABLES Keira l Result [facility] Department [place] [address] [facility] * (ABNORMAL) Urinalysis reflex to microscopic and culture Urine (08/25/2025 2:31 PM NEONATAL SPECIALIST) Pathologist [facility] Color, ur Yellow Yellow Clarity, ur Cloudy(A) Clear [facility] Specific gravity, ur 1.026 1.003 - 1.030 [facility] pH, urine 6.0 [facility] Comment: Interpretive Data U rine pH is affected by diet, medications, systemic acid-base disturbances, and renal tubular function. pH may affect urinary stone formation. For example, urine pH below 6.0 may help reduce the tendency for calcium phosphate stones and pH greater than 6.0 may reduce the tendency for uric acid stone formation. Source: [facility] Current Interpretive Data was last revised on 2017 Protein, ur ql Trace Negative [facility] Glucose, ur ql Negative Negative [facility] Ketones, ur 3+(A) Negative [facility] Bilirubin, ur Negative Negative [facility] Blood, ur Negative Negative [facility] Urobilinogen, ur <2.0 <2.0 mg/dL [facility] Nitrite, ur Negative Negative [facility] Leukocyte esterase, ur 2+(A) Negative [facility] UA reflex comment Reflex to microscopic UA will be performed. [facility] Urine 08/25/2025 2:31 PM NEONATAL SPECIALIST 08/25/2025 2:36 PM NEONATAL SPECIALIST Ivana Morelos MD LAB MICROBIOLOGY - GENERA L ORDERABLES Final Result Performing Organization Address [facility] de Phone Number [facility] [place] [address] * Protein / creatinine ratio, urine, random (08/25/2025 2:31 PM NEONATAL SPECIALIST) Protein, ur, quant 15.5 mg/dL Comment: Interpretive Data No reference range established. Current interpretive data was last revised 2019. Creatinine Ur 160.4 mg/dL [facility] Comment: Interpretive Data No reference range established. Current interpretive data was last revised 2019. Protein/creatinin e ratio 96.6 0.0 - 180.0 mg/g CR [facility] Urine 08/25/2025 2:31 PM NEONATAL SPECIALIST 08/25/2025 2:46 PM NEONATAL SPECIALIST Ivana Morelos MD LAB URINE ORDERABLES Keira l Result Performing Organization Address [facility] de Phone Number [facility] [place] [address] * (ABNORMAL) Urinalysis, microscopic only (08/25/2025 2:31 PM NEONATAL SPECIALIST) WBC, ur 21-50(A) 0 - 5 /HPF RBC, ur 0-2 0 - 2 /HPF [facility] Epithelial cells, squamous, ur 11-20(A) 0 - 5 /HPF [facility] Comment:Suggestive of contam ination. Consider recollection by clean catch. Bacteria, ur Trace(A) [facility] Mucous, ur Present(A) [facility] Culture Reflex Comment Reflex to urine culture will be performed. [facility] Urine 08/25/2025 2:31 PM NEONATAL SPECIALIST 08/25/2025 2:36 PM NEONATAL SPECIALIST Ivana Morelos MD LAB URINE ORDERABLES Keira l Result Performing Organization Address [facility] de Phone Number [facility] Department [place] [address] * Urine culture Urine (08/25/2025 2:31 PM NEONATAL SPECIALIST) Report Final Report: Growth indicative of contamination with periurethral teresa. Please submit a new specimen with special attention given to the collection process and to prompt transport to the laboratory. Organism GROWTH INDICATES CONTAM WITH PERIURETHRAL TERESA. [facility] Urine 08/25/2025 2:31 PM NEONATAL SPECIALIST 08/25/2025 6:02 PM NEONATAL SPECIALIST Narrative [facility] - 08/26/2025 7:52 PM NEONATAL SPECIALIST Urine culture reflexed based upon urinalysis results. Testing performed by [facility] ([phone]) Ivana Morelos MD LAB MICROBIOLOGY - GENERA L ORDERABLES Final Result Performing Organization Address [facility]/ZIP Co de Phone Number [facility] [place] [address] * POCUS Female TAB Pelvic, Non- (08/25/2025 2:25 PM NEONATAL SPECIALIST) Anatomical Region Laterality Modality Other 08/25/2025 2:13 PM NEONATAL SPECIALIST Narrative 08/25/2025 2:30 PM NEONATAL SPECIALIST Performed by: Transabdominal: Exam Information: Exam type: Diagnostic Indication(s) for Exam: by history Findings: IUP: Present Intrauterine findings: heart rate heart rate =: 135 location: Fundus Interpretation: Live IUP Electronically signed by Ivana Morelos on Monday, August 25, 2025 at 2:30 PM Images on file. Procedure Note Ivana Morelos MD - 08/25/2025 Performed by: Transabdominal: Exam Information: Exam type: Diagnostic Indication(s) for Exam: by history Findings: IUP: Present Intrauterine findings: heart rate heart rate =: 135 location: Fundus Interpretation: Live IUP Electronically signed by Ivana Morelos on Monday, August 25, 2025 at2:30 PM Images on file. Ivana Morelos MD POCUS ORDERABLES Final Re sult * eGFR (08/25/2025 2:20 PM NEONATAL SPECIALIST) eGFR >90 >=60 mL/min/1. 73 m2 Comment: Interpretive Data Reference Interval Normal >/= 90 mL/min/1.73m2 Mildly decreased* 60 - 89 mL/min/1.73m2 Mildly to moderately decreased 45 - 59 mL/min/1.73m2 Moderately to severely decreased 30 - 44 mL/min/1.73m2 Severely decreased 15 - 29 mL/min/1.73m2 Kidney Failure < 15 mL/min/1.73m2 *Relative to young adult level Estimated glomerular filtration rate is determined by the 2020 CKD-EPI equation recommended by the National Kidney Foundation (A Unifying Approach to GFR Estimation: Recommendations of the NKF-ASK Task Force on Reassessing the Inclusion of Race in Diagnosing Kidney Disease, JASN 2020). The CKD-EPI equation should not be used for patients with unstable renal function and has not been validated in children and those over 70. Current interpretive data was last reviewed 2021. Blood 08/25/2025 2:20 PM NEONATAL SPECIALIST 08/25/2025 2:38 PM NEONATAL SPECIALIST Ivana Morelos MD LAB BLOOD ORDERABLES Keira schmid Result [facility] Department [place] [address] * (ABNORMAL) Differential, auto (08/25/2025 2:20 PM NEONATAL SPECIALIST) Neutrophil abs 7.55(H) 1.50 - 6.50 K/cumm Imm gran abs 0.06 0.00 - 0.10 K/cumm [facility] Lymphocyte abs 1.63 0.80 - 3.30 K/cumm [facility] Monocyte abs 0.85(H) 0.20 - 0.80 K/cumm [facility] Eosinophil abs 0.13 0.00 - 0.50 K/cumm [facility] Basophil abs 0.02 0.00 - 0.10 K/cumm [facility] Neutrophil pct 73.7 % [facility] Comment: Interpretive Data Percent cell count reference ranges are not reported, since discordance with absolute values may lead to misinterpretation of CBC data. Current Interpretive Data was last revised on 2018. Imm gran pct 0.6 % [facility] Comment: Interpretive Data Percent cell count reference ranges are not reported, since discordance with absolute values may lead to misinterpretation of CBC data. Current Interpretive Data was last revised on 2018. Lymphocyte pct 15.9 % [facility] Comment: Interpretive Data Percent cell count reference ranges are not reported, since discordance with absolute values may lead to misinterpretation of CBC data. Current Interpretive Data was last revised on 2018. Monocyte pct 8.3 % [facility] Comment: Interpretive Data Percent cell count reference ranges are not reported, since discordance with absolute values may lead to misinterpretation of CBC data. Current Interpretive Data was last revised on 2018. Eosinophil pct 1.3 % [facility] Comment: Interpretive Data Percent cell count reference ranges are not reported, since discordance with absolute values may lead to misinterpretation of CBC data. Current Interpretive Data was last revised on 2018. Basophil pct 0.2 % [facility] Comment: Interpretive Data Percent cell count reference ranges are not reported, since discordance with absolute values may lead to misinterpretation of CBC data. Current Interpretive Data was last revised on 2018. Blood 08/25/2025 2:20 PM NEONATAL SPECIALIST 08/25/2025 2:38 PM NEONATAL SPECIALIST Ivana Morelos MD LAB BLOOD ORDERABLES Keira l Result Performing Organization Address City/[facility]/ZIP Co de Phone Number [facility] Department [place] [address] * (ABNORMAL) CBC with auto differential (08/25/2025 2:20 PM NEONATAL SPECIALIST) WBC 10.24(H) 3.80 - 9.90 K/cumm Hgb 14.2 11.9 - 15.5 g/dL [facility] Hct 41.7 35.6 - 45.5 % [facility] Plt 150 150 - 400 K/cumm [facility] MPV 9.9 9.1 - 12.3 fL [facility] RBC 4.38 3.90 - 5.20 M/cumm [facility] MCV 95.2 81.3 - 96.4 fL [facility] MCH 32.4 27.1 - 33.3 pg [facility] MCHC 34.1 32.3 - 35.7 g/dL [facility] RDW CV 14.4 11.1 - 14.9 % [facility] RDW SD 50.1(H) 35.7 - 48.1 fL [facility] NRBC abs 0.00 0.00 - 0.01 K/cumm [facility] Blood 08/25/2025 2:20 PM NEONATAL SPECIALIST 08/25/2025 2:38 PM NEONATAL SPECIALIST Ivana Morelos MD LAB BLOOD ORDERABLES Keira l Result Performing Organization Address [facility]/ZIP Co de Phone Number [facility] [place] [address] * (ABNORMAL) aPTT (08/25/2025 2:20 PM NEONATAL SPECIALIST) aPTT 25(L) 26 - 38 sec Comment: Interpretive Data Heparin therapeutic range: 66.0 - 100.0 seconds. Range based on correlation with therapeutic heparin activity range of 0.3 - 0.7 Units/mL. Blood 08/25/2025 2:20 PM NEONATAL SPECIALIST 08/25/2025 2:35 PM NEONATAL SPECIALIST Result [facility] Ivana Morelos MD LAB BLOOD ORDERABLES Keira l Result Performing Organization Address [facility] de Phone Number [facility] [place] [address] * Protime-INR (08/25/2025 2:20 PM NEONATAL SPECIALIST) Pathologist [facility] PT 11.5 10.2 - 13.5 sec INR 1.02 0.90 - 1.20 [facility] Comment: Interpretive data Oral anticoagulant therapeutic ranges: Venous thromboembolism prophylaxis or treatment: 2.0-3.0 CARDIOLOGY Standard range: 2.0-3.0 High-intensity range: 2.5-3.5 Refer to indication-specific guidelines for appropriate target ranges for prosthetic heart valve replacement. Current interpretive data was last revised on 2019. Blood 08/25/2025 2:20 PM NEONATAL SPECIALIST 08/25/2025 2:35 PM NEONATAL SPECIALIST Result [facility] Ivana Morelos MD LAB BLOOD ORDERABLES Keira l Result Performing Organization Address [facility] de Phone Number [facility] Department [place] [place] [address] * (ABNORMAL) Fibrinogen (08/25/2025 2:20 PM NEONATAL SPECIALIST) Pathologist [facility] Fibrinogen 504(H) 170 - 400 mg/dL Blood 08/25/2025 2:20 PM NEONATAL SPECIALIST 08/25/2025 2:35 PM NEONATAL SPECIALIST Result [facility] Ivana Morelos MD LAB BLOOD ORDERABLES Keira l Result Performing Organization Address [facility]/[place] [address] * Type and screen (08/25/2025 2:20 PM NEONATAL SPECIALIST) Pathologist [facility] Debby, indirect Negative ABO Rh A Positive [facility] Blood 08/25/2025 2:20 PM NEONATAL SPECIALIST 08/25/2025 2:29 PM NEONATAL SPECIALIST Narrative [facility] - 08/25/2025 3:32 PM NEONATAL SPECIALIST Has the patient had Daratumumab or Isatuximab in the past 6 months?->Unknown Ivana Morelos MD LAB BLOOD BANK TEST ORDER KENDALL Final Result Performing Organization Address [facility]/[place] [address] * Magnesium (08/25/2025 2:20 PM NEONATAL SPECIALIST) [facility] Magnesium 1.9 1.4 - 2.5 mg/dL Blood 08/25/2025 2:20 PM NEONATAL SPECIALIST 08/25/2025 2:38 PM NEONATAL SPECIALIST Ivana Morelos MD LAB BLOOD ORDERABLES Keira l Result Performing Organization Address [facility]/[place] [address] * (ABNORMAL) Hepatic function panel (08/25/2025 2:20 PM NEONATAL SPECIALIST) [facility] Bilirubin, total 0.4 0.1 - 1.2 mg/dL Bilirubin, direct <0.2 0.1 - 0.3 mg/dL [facility] Protein, pl 6.9 6.5 - 8.5 g/dL [facility] Albumin 3.7 3.5 - 5.0 g/dL [facility] Alk phos 94 40 - 130 Units/L [facility] ALT 6(L) 7 - 45 Units/L [facility] AST 23 10 - 45 Units/L [facility] Blood 08/25/2025 2:20 PM NEONATAL SPECIALIST 08/25/2025 2:38 PM NEONATAL SPECIALIST Ivana Morelos MD LAB BLOOD ORDERABLES Keira l Result Performing Organization Address City/[facility]/ZIP Co de Phone Number [facility] Department [place] [address] * (ABNORMAL) Basic metabolic panel (08/25/2025 2:20 PM NEONATAL SPECIALIST) [facility] Sodium 136 135 - 145 mmol/L Potassium, pl 3.7 3.3 - 4.9 mmol/L [facility] Chloride 106 97 - 110 mmol/L [facility] CO2 17(L) 22 - 32 mmol/L [facility] Anion gap 13 2 - 15 mmol/L [facility] BUN 8 6 - 25 mg/dL [facility] Creatinine 0.50(L) 0.60 - 1.10 mg/dL [facility] Glucose 84 70 - 199 mg/dL [facility] Comment: Interpretive Data Fasting glucose >/= 126 mg/dl is diagnostic for diabetes. Fasting is defined as no caloric intake for at least 8 hours. Fasting glucose between 100 mg/dl to 125 mg/dl is diagnostic of prediabetes. In a patient with classic symptoms of hyperglycemia or hyperglycemic crisis, a random glucose >/= 200 mg/dl is diagnostic for diabetes. In the absence of unequivocal hyperglycemia, results should be confirmed by repeat testing. The classification and Diagnosis of Diabetes Diabetes Care 2021; 46: S19-S40. Current interpretive data was last revised 2022. Calcium 8.4(L) 8.5 - 10.3 mg/dL [facility] Blood 08/25/2025 2:20 PM NEONATAL SPECIALIST 08/25/2025 2:38 PM NEONATAL SPECIALIST Ivana Morelos MD LAB BLOOD ORDERABLES Keira l Result Performing Organization Address [facility]/ZIP Co de Phone Number [facility] Department [place] [address] from Last 3 Months Insurance [facility] Care Teams Workers Compensation Adjuster Relationship Specialty Start Date End Date Uriah Sevilla PA [address] [place] [address] PCP - General Pipe Foreman 08/25/25
--- OUTSIDE RECORDS SUMMARY | 2025-09-16 23:41 | XMS_ITS | Encounter Summary ---
Author Organization [facility] Address [address] [place] [address] Care Team Providers Care Milking System Installer Name Role Phone Joycelyn Gomez MD Primary Care Provider + [phone] Arielle Haynes REWORK OPERATOR Primary Care Provider + [phone] Joycelyn Gomez MD Primary Care Provider + [phone] Uma Tomlin [facility] Primary Care Provider + Judy Tse NP Primary Care Provider [phone] Uriah Sevilla Primary Care Provider [phone] Mu Plunkett MD Primary Care Provider [phone] Uriah Sevilla Primary Care Provider [phone] Encounter Details Date Type Department Care Team (Late st Contact Info) Description 11/23/2020 [employer] Message [facility] [address] [place] [address] [facility] Provider RE:Migraine med refill Social History [...] Sex Assigned at Female 11/20/2024 9:16 AM CAPABILITY LEAD Legal Sex Female 7:00 PM CDT Gender Identity Not on file Sexual Orientation Not on file documented as of this encounter Progress Notes * SOREN Hirsch - 11/24/2020 9:37 AM CST Yes we can do that. Please let her know she may need to come in for lab work at some point. BILITY LEAD documented in this encounter Plan of Treatment Upcoming Encounters Date Type Department Care Team (Late st Contact Info) Description 09/25/2025 8:30 AM CAPABILITY LEAD Appointment [facility] [address] [place], [place] [phone] [place] [address] [place], [place] [phone] [place] [address] [place] [address] documented as of this encounter Visit Diagnoses [...] Rule Out 11/02/2022 11/02/2022 11/02/2022 1:59 PM CAPABILITY LEAD Assessment Noted Time PHQ-9 Depression Total Score: 12 020 11:09 AM CDT documented as of this encounter Care Teams Milking System Installer Relationship Specialty Start Date End Date Joycelyn Gomez MD PCP - General INTERNAL MEDICINE 07/28/20 11/28/22 [place] [address] [place] [address] PCP - General Nurse Practitioner Family 12/29/2212/23 Joycelyn Gomez MD PCP - General INTERNAL MEDICINE 11/29/22 12/28/22 [facility] [address] [facility] [address] [place] [address] PCP - General 01/02/23 01/30/23 Judy Tse, ARCHIE [address] [facility] [place] [address] PCP - General Nurse Practitioner Family 01/31/2310/25 [place] [address] [employer] [facility] [place] [address] PCP - General Physician Speech And Drama Teacher Medical 11/12/23 08/24/25 Mu Plunkett MD [address] [place] [id number] PCP - General OBGYN 08/25/25 08/30/25 [place] [address] [address] [place] [address] PCP - General PHYSICIAN NECK CUTTER 08/31/25 documented as of this encounter
--- OUTSIDE RECORDS SUMMARY | 2025-09-16 23:41 | XMS_ITS | Encounter Summary ---
Author Organization [facility] Address [address] [place] [address] Care Team Providers Care Metrologist Name Role Phone Joycelyn Gomez MD Primary Care Provider + [phone] Arielle Haynes CUSTOMS COMPLIANCE ANALYST Primary Care Provider + [phone] Joycelyn Gomez MD Primary Care Provider + [phone] Uma Tomlin [facility] Primary Care Provider + Judy Tse NP Primary Care Provider [phone] Uriah Sevilla Primary Care Provider [phone] Mu Plunkett MD Primary Care Provider [phone] Uriah Sevilla Primary Care Provider [phone] Encounter Details Date Type Department Care Team (Late st Contact Info) Description 11/03/[address] [facility] Internal [facility] - [place] [address] [place] [address] Joycelyn Gomez MD [address] [place] [address] [place] Social History Tobacco Use Types Packs/Day Years [...] Sex Assigned at Female 11/20/2024 9:16 AM IT APPLICATION ADMINISTRATOR Legal Sex Female 7:00 PM CDT Gender Identity Not on file Sexual Orientation Not on file COVID-19 Exposure Response Date Recorded In the last month, have you been in contact with someone who was confirmed or suspected to have Coronavirus / COVID-19? No / Unsure 10/17/2021 1:23 PM IT APPLICATION ADMINISTRATOR documented as of this encounter Progress Notes * Arielle Jimenez RN - 11/15/2021 3:59 PM CST PA for Danuta was DENIED. Will need to work on Letter, APPLICATION ADMINISTRATOR documented in this encounter Plan of Treatment Upcoming Encounters Date Type Department Care Team (Late st Contact Info) Description 09/25/2025 8:30 AM IT APPLICATION ADMINISTRATOR Appointment [facility] [address] [place], [place] [phone] [place] [address] [place] [address] [place] [address] [place], [place] [phone] documented as of this encounter Visit Diagnoses Not on filedocumented in this encounter Additional Health Concerns Infection Onset Date Last Indicated Resolved Time COVID-19 Rule Out 01/31/2022 01/31/2022 01/31/2022 3:20 PM CDT COVID-19 Confirmed 01/31/2022 01/31/2022 12:32 AM CDT COVID-19 Rule Out 06/23/2022 06/23/2022 06/23/2022 12:16 PM CDT COVID-19 Rule Out 11/02/2022 11/02/2022 11/02/2022 1:59 PM IT APPLICATION ADMINISTRATOR Assessment Noted Time PHQ-9 Depression Total Score: 0 05/04/20 21 1:11 PM CDT documented as of this encounter Care Teams Metrologist Relationship Specialty Start Date End Date Joycelyn Gomez MD PCP - General INTERNAL MEDICINE 07/28/20 11/28/22 [place] [address] [place] [address] PCP - General Nurse Practitioner Family 12/29/2212/23 Joycelyn Gomez MD PCP - General INTERNAL MEDICINE 11/29/22 12/28/22 Uma Tomlin [facility] [address] [place] [address] PCP - General 01/02/23 01/30/23 [place] [address] [address], [address] [place] [address] PCP - General Nurse Practitioner Family 01/31/2310/25 [place] [address] [place] [address] PCP - General Physician Registered Land Surveyor Medical 11/12/23 08/24/25 Mu Plunkett MD [address] [facility] [place] [id number] PCP - General OBGYN 08/25/25 08/30/25 [place] [address] [place] [address] PCP - General PHYSICIAN STITCH WHEELER 08/31/25 documented as of this encounter
--- OUTSIDE RECORDS SUMMARY | 2025-09-16 23:41 | XMS_ITS | Encounter Summary ---
Author Organization [facility] Address [address] [place] [address] Care Team Providers Care Civil Structural Engineer Name Role Phone Joycelyn Gomez MD Primary Care Provider + [phone] Arielle Haynes KETTLE CLEANER Primary Care Provider + [phone] Joycelyn Gomez MD Primary Care Provider + [phone] Uma Tomlin [facility] Primary Care Provider + Judy Tse NP Primary Care Provider [phone] Uriah Sevilla Primary Care Provider [phone] Mu Plunkett MD Primary Care Provider [phone] Uriah Sevilla Primary Care Provider [phone] Encounter Details Date Type Department Care Team (Late st Contact Info) Description 11/25/2020 [facility] Message [facility] [address] [place] [address] Chris, [facility] Provider Danuta Social History Tobacco Use Types Packs/Day Years Used Date Smoking Tobacco: Former Cigarettes Q uit: 09/04/2011 Smokeless Tobacco: Never Alcohol Use Standard Drinks/Week Comments Yes 0 (1 standard drink = 0.6 oz pur e alcohol) social PHQ-2 Answer Date Recorded PHQ-2 Score 4 2020 Comments No Sex and Gender Information Value Date Recorded Sex Assigned at Female 11/20/2024 9:16 AM WAITER/WAITRESS COCKTAIL LOUNGE Legal Sex Female 7:00 PM CDT Gender Identity Not on file Sexual Orientation Not on file documented as of this encounter Plan of Treatment Upcoming Encounters Date Type Department Care Team (Late st Contact Info) Description 09/25/2025 8:30 AM WAITER/WAITRESS COCKTAIL LOUNGE Appointment [facility] [address] [place] [address] [place] [address] [place], [place] [phone] [place] [address] [place], [place] [phone] documented as of this encounter Visit Diagnoses [...] Rule Out 11/02/2022 11/02/2022 11/02/2022 1:59 PM WAITER/WAITRESS COCKTAIL LOUNGE Assessment Noted Time PHQ-9 Depression Total Score: 12 020 11:09 AM CDT documented as of this encounter Care Teams Civil Structural Engineer Relationship Specialty Start Date End Date Joycelyn Gomez MD PCP - General INTERNAL MEDICINE 07/28/20 11/28/22 [place] [address] [phone] PCP - General Nurse Practitioner Family 12/29/2212/23 Joycelyn Gomez MD PCP - General INTERNAL MEDICINE 11/29/22 12/28/22 Uma Tomlin, [facility]- [address] [address] PCP - General 01/02/23 01/30/23 [place] [address] [address], [address] [address] PCP - General Nurse Practitioner Family 01/31/2310/25 [place] [address] [place] [address] PCP - General Physician Riveter Automobile Brakes Medical 11/12/23 08/24/25 Mu Plunkett MD [address] [place] [address] PCP - General OBGYN 08/25/25 08/30/25 [place] [address] [place] [address] PCP - General PHYSICIAN INTERNATIONAL TRADE MANAGER 08/31/25 documented as of this encounter
--- OUTSIDE RECORDS SUMMARY | 2025-09-16 23:41 | XMS_ITS | Continuity of Care Document ---
Author Organization [facility] Address [address] [place] [address] Care Team Providers Care Marketing Education Teacher Name Role Phone FRANTZ ZHANG Primary Care [...] Not Available Alice villarreal [address], [place], [address], 03/10/2025 07:42:34 03/10/20 25 03/10/2025 [UNIT Y] ANEUP LOIDY NIPT sex chromosome aneuploidy NOT DETECT ED normal Not Available Pilar monson [address], [place], [address], 03/10/2025 07:42:34 03/10/20 25 03/10/2025 [UNIT Y] ANEUP LOIDY NIPT monosomy X LOW RISK <1 in 10,000 normal Not Available [facility] [address], [place], [address], 03/10/2025 07:42:34 03/10/20 25 03/10/2025 [UNIT Y] ANEUP LOIDY NIPT trisomy 13 LOW RISK <1 in 10,000 normal Not Available [facility] [address], [place], [address], 03/10/2025 07:42:34 03/10/20 25 03/10/2025 [UNIT Y] ANEUP LOIDY NIPT trisomy 18 LOW RISK <1 in 10,000 normal Not Available [facility] [address], [place], [address], 03/10/2025 07:42:34 03/10/20 25 03/10/2025 [UNIT Y] ANEUP LOIDY NIPT trisomy 21 LOW RISK <1 in 10,000 normal Not Available [facility] [address], [place], [address], 03/10/2025 07:42:34 03/10/20 25 03/10/2025 [UNIT Y] ANEUP LOIDY NIPT sex FEMALE normal Not Available [facility] [address], [place], [address], 03/10/2025 07:42:34 03/10/20 25 03/10/2025 [UNIT Y] ANEUP LOIDY NIPT gestation SINGLE TON normal Not Available [facility] [address], [place], [address], 03/10/2025 07:42:34 03/10/20 25 03/10/2025 [UNIT Y] ANEUP LOIDY NIPT for detailed report, see pdf See PDF normal Not Available [facility] [address], [place], [address], 03/10/2025 07:42:34 03/13/20 25 03/13/2025 [UNIT Y] ANGELITO JAZMÍN Arzate sickle cell disease/beta -thalassemia /hemoglobino pathies carrier screen NEGATI VE normal Not Available [facility] [address], [place], [address], 03/13/2025 20:27:17 03/13/20 25 03/13/2025 [UNIT Y] ANGELITO JAZMÍN Arzate alpha-thalas semia carrier screen NEGATI VE normal Not Available [facility] [address], [place], [address], 03/13/2025 20:27:17 03/13/20 25 03/13/2025 [UNIT Y] ANGELITO JAZMÍN Arzate cystic fibrosis carrier screen NEGATI VE normal Not Available [facility] [address], [place], [address], 03/13/2025 20:27:17 03/13/20 25 03/13/2025 [UNIT Y] ANGELITO JAZMÍN Arzate spinal muscular atrophy carrier screen NEGATI VE 2 SMN1 copies , SNP not presen t normal Not Available [facility] [address], [place], [address], 03/13/2025 20:27:17 03/13/20 25 03/13/2025 [UNIT Y] ANGELITO JAZMÍN Arzate for detailed report, see pdf See PDF normal Not Available [facility] [address], [place], [address], 03/13/2025 20:27:17 03/04/20 25 03/04/2025 HEPAT ITIS C ANTIB BRODERICK ROLANDO Arzate, REFLE X TO CONFI RMATI ON hepatitis C antibody Non-re active non-re active Antib odies to HCV Not Detec carrington, does not exclu de the possi bilit y of expos ure to HCV. Not Available [facility] (Lab) [address], [place], [address], 03/05/2025 10:19:41 06/08/13 2503/04/2025 HEPAT ITIS B SURFA CE ANTIG EN hepatitis B surface antigen Non-re active non-re active This assay was perfo rmed using [employer] ratio n reage nts and test kits. Value s obtai neelima with other assay metho ds or kits canno t be used inter curran eably . Not Available [facility] (Lab) [address] [facility], [place], [address], 03/05/2025 10:19:41 03/04/2003/04/2025 HIV 1/2 ANTIG EN/AN TIBOD Y, REFLE X CONFI RMATI ON HIV antigen/anti body Nonrea ctive nonrea ctive HIV-1 antig en and HIV-1 /HIV- 2 antib odies were not detec carrington. No labor atory evide nce of HIV infec tion. Not Available [facility] (Lab) [address] [facility], [place], [address], 03/05/2025 10:19:41 03/04/20 25 03/04/2025 RUBEL LA IGG ANTIB BRODERICK, QUANT rubella antibodies, IgG Reacti ve reacti ve Not Available [facility] (Lab) [address] [facility], [place], [address], 03/05/2025 10:19:42 03/04/20 25 03/04/2025 RUBEL LA IGG ANTIB BRODERICK, QUANT rubella antibodies, IgG quant 14.3 IU/mL >=10 Non-r eacti ve (Non- Immun e) <10 IU/mL React gisele (Immu ne) > or = 10 IU/mL Not Available [facility] (Lab) [address], [place], [address], 03/05/2025 10:19:42 03/04/2003/04/2025 CBC W/DIF F WBC 9.6 10'3/ uL 3.5-10 .5 Not Available [facility] (Lab) [address] [facility], [place], [address], 03/05/2025 10:19:42 03/04/20 25 03/04/2025 CBC W/DIF F RBC 3.79 10'6/ uL (based on docume nted legal sex) 3.80-5 .20 low Not Available [facility] (Lab) [address], [place], [address], 03/05/2025 10:19:42 03/04/20 25 03/04/2025 CBC W/DIF F HGB 12.3 g/dL (based on docume nted legal sex) 11.6-1 5.4 Not Available [facility] (Lab) [address] [facility], [place], [address], 03/05/2025 10:19:42 03/04/20 25 03/04/2025 CBC W/DIF F HCT 38.4 % (based on docume nted legal sex) 34.0-4 5.0 Not Available [facility] (Lab) [address] [facility], [place], [address], 03/05/2025 10:19:42 03/04/20 25 03/04/2025 CBC W/DIF F MCV 101.3 fL 80.0-9 9.0 high Not Available [facility] (Lab) [address] [facility], [place], [address], 03/05/2025 10:19:42 03/04/20 25 03/04/2025 CBC W/DIF F MCH 32.5 pg 27.0-3 4.0 Not Available [facility] (Lab) [address] [facility], [place], [address], 03/05/2025 10:19:42 03/04/20 25 03/04/2025 CBC W/DIF F MCHC 32.0 g/dL 32.0-3 5.5 Not Available [facility] (Lab) [address] [facility], [place], [address], 03/05/2025 10:19:42 03/04/20 25 03/04/2025 CBC W/DIF F RDW 14.6 % 11.0-1 5.0 Not Available [facility] (Lab) [address] [facility], [place], [address], 03/05/2025 10:19:42 03/04/20 25 03/04/2025 CBC W/DIF F plt 245 10'3/ uL 150-40 0 Not Available [facility] (Lab) [address] [facility], [place], [address], 03/05/2025 10:19:42 03/04/20 25 03/04/2025 CBC W/DIF F MPV 10.8 fL 8.8-12 .1 Not Available [facility] (Lab) [address] [facility], [place], [address], 03/05/2025 10:19:42 03/04/20 25 03/04/2025 CBC W/DIF F NRBC's 0.0 % 0.0 Not Available [facility] (Lab) [address] [facility], [place], [address], 03/05/2025 10:19:42 03/04/20 25 03/04/2025 CBC W/DIF F absolute NRBCs 0.0 10'3/ uL no refere nce range establ ished Not Available [facility] (Lab) [address] [facility], [place], [address], 03/05/2025 10:19:42 03/04/20 25 03/04/2025 CBC W/DIF F neutrophils 66.6 % 34.0-7 3.0 Not Available [facility] (Lab) [address] [facility], [place], [address], 03/05/2025 10:19:42 03/04/20 25 03/04/2025 CBC W/DIF F lymphocytes 21.0 % 15.0-5 0.0 Not Available [facility] (Lab) [address] [place], [address], 03/05/2025 10:19:42 03/04/20 25 03/04/2025 CBC W/DIF F monocytes 8.9 % 1.0-15 .0 Not Available [facility] (Lab) [address] [facility], [place], [address], 03/05/2025 10:19:42 03/04/20 25 03/04/2025 CBC W/DIF F eosinophils 2.5 % 0.0-8. 0 Not Available [facility] (Lab) [address] [facility], [place], [address], 03/05/2025 10:19:42 03/04/20 25 03/04/2025 CBC W/DIF F basophils 0.7 % 0.0-2. 0 Not Available [facility] (Lab) [address] [facility], [place], [address], 03/05/2025 10:19:42 03/04/20 25 03/04/2025 CBC W/DIF [...] separ ately if prese nt. Not Available [facility] (Lab) [address] [facility], [place], [address], 03/05/2025 10:19:42 03/04/20 25 03/04/2025 CBC W/DIF F absolute neutrophils 6.4 10'3/ uL 1.5-8. 0 Not Available [facility] (Lab) [address] [facility], [place], [address], 03/05/2025 10:19:42 03/04/20 25 03/04/2025 CBC W/DIF F absolute lymphocytes 2.0 10'3/ uL 1.0-4. 0 Not Available [facility] (Lab) [address] [facility], [place], [address], 03/05/2025 10:19:42 03/04/20 25 03/04/2025 CBC W/DIF F absolute monocytes 0.9 10'3/ uL 0.2-1. 0 Not Available [facility] (Lab) [address], [place], [address], 03/05/2025 10:19:42 03/04/2003/04/2025 CBC W/DIF F absolute eosinophils 0.2 10'3/ uL 0.0-0. 6 Not Available [facility] (Lab) [address], [place], [address], 03/05/2025 10:19:42 03/04/2003/04/2025 CBC W/DIF F absolute basophils 0.1 10'3/ uL 0.0-0. 3 Not Available [facility] (Lab) [address], [place], [address], 03/05/2025 10:19:42 03/04/2003/04/2025 CBC W/DIF F absolute immature granulocytes 0.0 10'3/ uL 0.00-0 .10 Refer ence range s for nonbi nary/ inter sex or unspe cifie d gende r patie nts have not been estab lishe d. [facility]as e [facility] for range s estab lishe d for cisge nder patie nts and evalu ate in the clini mariano alonzo xt of the indiv idual patie nt: https ://priyanka rodriguez book. nm.or g/gen derx Not Available [facility] (Lab) [address], [place], [address], 03/05/2025 10:19:42 03/04/2003/04/2025 TYPE/ RH/SC REEN ABO/Rh type A POS Not Available [facility] (Lab) [address], [place], [address], 03/05/2025 10:19:42 03/04/2003/04/2025 TYPE/ RH/SC REEN antibody screen NEG Not Available [facility] (Lab) [address], [place], [address], 03/05/2025 10:19:42 03/04/2003/04/2025 TYPE/ RH/SC REEN exp date 2024 23:59 Not Available [facility] (Lab) [address], [place], [address], 03/05/2025 10:19:42 03/04/2003/04/2025 HEMOG LOBIN A1C hemoglobin [...] >8.0% Actio n sugge sted Not Available [facility] (Lab) [address], [place], [address], 03/05/2025 10:19:43 03/04/20 25 03/04/2025 RPR SCREE N, REFLE X TITER /CONF IRMAT ION RPR qualitative Nonrea ctive nonrea ctive Not Available [facility] (Lab) [address], [place], [address], 03/05/2025 10:19:43 03/04/2003/04/2025 CT/GC AND TRICH OMONA S VAGIN ISABEL (RRNA ), URINE chlamydia trachomatis, PCR Negati ve negati ve Not Available [facility] (Lab) [address], [place], [address], 03/06/2025 00:29:18 03/04/2003/04/2025 CT/GC AND TRICH OMONA S VAGIN ISABEL (RRNA ), URINE neisseria gonorrhoeae, PCR Negati ve negati ve Not Available [facility] (Lab) [address] [facility], [place], [address], 03/06/2025 00:29:18 03/04/20 25 03/04/2025 CT/GC AND TRICH OMONA S VAGIN ISABEL (RRNA ), URINE trichomonas vaginalis ribosomal RNA (rrna) Negati ve negati ve Not Available [facility] (Lab) [address] [facility], [place], [address], 03/06/2025 00:29:18 03/04/2003/04/2025 CULTU RE: URINE result report SEE RESULT S BELOW Test: Cultu re: Urine Speci men Sourc e: Urine Voide d Speci men Type: Urine Speci men Date: 2024 1056 Resul t Date: 2024 2325 Resul t Statu s: Final resul t Abnor mal: No Resul ting Lab: [facility] [address] [facility] [address] Tel: CULTU RE ----- ----- ----- --- Cultu re resul t (>=3 organ isms prese nt) indic ates possi ble conta minat ion. Repea t cultu re if sympt oms indic ate. Not Available [facility] (Lab) [address] [facility], [place], [address], 03/06/2025 00:29:19 03/19/2003/19/2025 CULTU RE: URINE result report SEE RESULT S BELOW Test: Cultu re: Urine Speci men Sourc e: Urine Voide d Speci men Type: Urine Speci men Date: 2024 1709 Resul t Date: 2024 0322 Resul t Statu s: Final resul t Abnor mal: No Resul ting Lab: [facility] [address] [place] [facility] [place] [address] Tel: CULTU RE ----- ----- ----- --- No growt h in 1 day (dete ction level of 10,00 0 colon ies / ml.) Not Available [facility] (Lab) [address] [facility], [place], [address], 03/21/2025 04:28:02 03/19/2003/19/2025 CULTU RE: URINE result report SEE RESULT S BELOW Test: Cultu re: Urine Speci men Sourc e: Urine Voide d Speci men Type: Urine Speci men Date: 2024 Resul t Date: 2024 Resul t Statu s: Final resul t Abnor mal: No Resul ting Lab: [facility] [address] [facility] [address] Tel: CULTU RE ----- ----- ----- --- Cultu re resul t (>=3 organ isms prese nt) indic ates possi ble conta minat ion. Repea t cultu re if sympt oms indic ate. Not Available [facility] (Lab) [address] [facility], [place], [address], 03/21/2025 22:45:05 07/08/20 25 07/08/2025 HEMOG LOBIN (HGB) HGB 11.1 g/dL (based on docume nted legal sex) 11.6-1 5.4 low Not Available [facility] (Lab) [address] [facility], [place], [address], 07/09/2025 11:13:10 07/08/20 25 07/08/2025 HEMAT OCRIT (HCT) HCT 34.0 % (based on docume nted legal sex) 34.0-4 5.0 Not Available [facility] (Lab) [address] [facility], [place], [address], 07/09/2025 11:13:11 07/08/20 25 07/08/2025 GTT - GESTA TARIQ L SCREE N, ACOG OB glucose, 1 hour screen 171 mg/dL 70-135 high Not Available [facility] (Lab) [address] [facility], [place], [address], 07/09/2025 11:13:11 07/08/2007/08/2025 HIV 1/2 ANTIG EN/AN TIBOD Y, REFLE X CONFI RMATI ON HIV antigen/anti body Nonrea ctive nonrea ctive HIV-1 antig en and HIV-1 /HIV- 2 antib odies were not detec carrington. No labor atory evide nce of HIV infec tion. Not Available [facility] (Lab) [address] [facility], [place], [address], 07/09/2025 11:13:12 07/08/2007/08/2025 RPR SCREE N, REFLE X TITER /CONF IRMAT ION RPR qualitative Nonrea ctive nonrea ctive Not Available [facility] (Lab) [address] [facility], [place], [address], 07/09/2025 11:13:12 07/16/2007/16/2025 GTT - GESTA TARIQ L, 3 HOUR, ACOG glucose, fasting acog 80 mg/dL 70-94 Not Available [facility] (Lab) [address] [place], [address], 07/17/2025 05:25:34 07/16/20 25 07/16/2025 GTT - GESTA TARIQ L, 3 HOUR, ACOG glucose, 1 hour acog 175 mg/dL 70-179 Not Available [facility] (Lab) [address] [place], [address], 07/17/2025 05:25:34 07/16/20 25 07/16/2025 GTT - GESTA TARIQ L, 3 HOUR, ACOG glucose, 2 hour acog 154 mg/dL 70-154 Not Available [facility] (Lab) [address] [place] [facility] [place], [address], 07/17/2025 05:25:34 07/16/20 25 07/16/2025 GTT - GESTA TARIQ L, 3 HOUR, ACOG glucose, 3 hour acog 72 mg/dL 70-139 Not Available [facility] (Lab) [address] [facility], [place], [address], 07/17/2025 05:25:34 03/04/20 25 03/03/2025 US, obste tric, follo w-up No observ ation record ed. [email or web address] [address], [place], [address], 03/07/2025 21:37:38 03/04/20 25 03/03/2025 US, obste tric, 1st trime ster No observ ation record ed. [email or web address] [address], [place], [address], 03/09/2025 12:28:15 03/19/20 25 03/19/2025 US, obste tric, nucha l trans lucen cy No observ ation record ed. [facility] [address], [place], [address], 03/19/2025 17:52:27 03/19/20 25 03/19/2025 US, obste tric, 1st trime ster No observ ation record ed. [facility] [address], [place], [address], 03/19/2025 17:52:36 03/19/20 25 03/19/2025 US, obste tric, follo w-up No observ ation record ed. [email or web address] [address], [place], [address], 03/23/2025 09:26:34 04/06/20 25 04/06/2025 imagi ng/di agnos tic resul t No observ ation record ed. JIMENA [address], [place], [address], 04/13/2025 12:13:32 05/13/20 25 05/13/2025 US, obste tric, 2nd or 3rd trime ster No observ ation record ed. [email or web address] [place] [address], [place], [address], 05/13/2025 18:22:31 05/13/20 25 05/13/2025 US, obste tric, 2nd or 3rd trime ster No observ ation record ed. [email or web address] [address], [place], [address], 05/13/2025 16:32:33 08/07/20 25 08/07/2025 US, obste tric, follo w-up No observ ation record ed. [email or web address] [address], [place], [address], 08/07/2025 13:46:32 08/07/20 25 08/07/2025 US, obste tric, follo w-up No observ ation record ed. [email or web address] [address], [place], [address], 08/24/2025 11:16:22 Result Notes None recorded. Problems Name Problem SNOMED Code Status Onset Date Resolution Date Notes Provider Name and Address Organization Details Recorded Time 05347160 Active 2024 Jackelin duvall [place] - [facility] 5 09:55:04 Multigravida of advanced maternal age 181099876 Active 2024 AMI CARRION MD [address], [place], [address], [facility] 5 15:47:41 Problem Notes None recorded. Procedures Surgical History Date Name Laterality Status Provider Name and Address Organization Details Recorded Time 5 Date of Last Pap Smear completed [facility] 03/04/2025 09:47:11 6 Colonoscopy completed [facility] 03/04/2025 09:54:07 7 Dilation and Curettage completed [facility] 03/04/2025 09:54:13 Imaging Results None recorded. Procedure Notes None recorded. Medical Equipment None Reported. Allergies Allergen ID Allergen Name Allergen Category Reaction Reaction Severity Criticality Documentation Date Start Date Code Code System Note Provider Name and Address Organization Details Recorded Time 57163 tramadol medicatio n Not available Not available Not available 03/04/2025 11125 RxNorm [facility] 5 09:46:55 59492 nickel sulfate Not available rash Not available low 09/02/20252015 68756 RxNorm Not Available jimena - External Data [...] Updated DateTime 09/02/2025 165.1 cm 38.4 kg/m2 225960.84 g 128/81 mm[Hg] ANAMIKA BHATTI [facility] 09/02/2025 09:59:02 Social History Question Answer Notes LastModified by [...] Or The Highest Degree You Have Received? [id number] Information not available 03/04/2025 Are There Any [...] anxious, or unable to sleep at night)? [id number] Information not available 03/04/2025 Family History Relationship [...] ICD10 Code Diagnosis IMO Codes Diagnosis Note [id number] AMI CARRION MD [place] [address] [address] 08/07/2025 09:42:22 08/07/2025 10:46:46 Multigravida of advanced maternal age 103539525 O09.523 Z3A.32 17982281 312804 AMI CARRION MD [place] [address] [address] 08/07/2025 09:42:57 08/07/2025 11:20:42 Multigravida of advanced maternal age 817764419 O09.529 90060202 Gestation period, 32 weeks 0452105 Z3A.32 4298217 [id number] Dallin Wilson MD [place] [address] [address] 08/17/2025 10:54:26 08/17/2025 12:11:01 care status 646124260 Z34.83 49718923 [id number] AMI CARRION MD [place] [address] [address] 09/02/2025 09:51:53 09/02/2025 10:46:47 Multigravida of advanced maternal age 587102411 O09.529 14047380 Gestation period, 36 weeks 26755339 Z3A.36 [id number] Health Concerns Section Related Observation LastModified by Organization Detai ls LastModified Time None Recorded Concern Status LastModified by Organization Details LastModified Time None Recorded Payers Encounter Date Sequence Insurance Name Policy Number Policy Delgado Covered Member ID Delgado Member ID Guarantor Name 09/02/2025 1 [facility] Anamika Crowley [id number] Anamika Crowley Notes Date Note Type Note Provider Name and Address Organization Details Recorded Time 09/02/2025 text/html Generic HPI TemplateReported by Patient AMI CARRION MD [address], [place], [address], [facility] 09/02/2025 10:44:14 OBGyn Episode Ob Episode Information Episode Created Date Number of Fetuses Patient Bloodtype Patient rh Status Prepregnancy Weight lbs Domestic Partner Domestic Partner Phone Father Name Degree Clerk Status 03/04/20 25 1 A Positive 174 Micah OPEN Fetus Data First Name Last Name Admitted to NICU Weight (g) Sex Living Outcome Pediatric Complications Fetus ID Race Codes Race Delivery Type [id number] Problems Problem Notes Problem Name Start Date End Date Resolution Snomed Code Not e Multigravida of advanced maternal age 0603/04/2025 [id number] Teddy Calculation Initial Teddy Date Initial Exam [...] Weight in lbs Pre/Post Dialysis Refused Weight 174.572392838499 BP Diastolic BP Location Tested BP Systolic BP Type 77 L arm 115 sitting Fetus Heart Rate Present Fetus Movement A No Comments Patient presents to [facility]. No nausea or cramping. Hx [...] Type Weight in lbs Pre/Post Dialysis Refused 183.033302800259 BP Diastolic BP Location Tested BP Systolic [...] Weight in lbs Pre/Post Dialysis Refused Weight 197.689439107870 BP Diastolic BP Location Tested BP Systolic [...] Weight in lbs Pre/Post Dialysis Refused Weight 195.426863875513 BP Diastolic BP Location Tested BP Systolic [...] Weight in lbs Pre/Post Dialysis Refused Weight 212.784339120803 BP Diastolic BP Location Tested BP Systolic [...] Type Weight in lbs Pre/Post Dialysis Refused 219.834110986877 BP Diastolic BP Location Tested BP Systolic [...] Type Weight in lbs Pre/Post Dialysis Refused 223.112671178072 BP Diastolic BP Location Tested BP Systolic [...] Type Weight in lbs Pre/Post Dialysis Refused 231.299475782144 BP Diastolic BP Location Tested BP Systolic [...] Weight in lbs Pre/Post Dialysis Refused Weight 232.1636441184 BP Diastolic BP Location Tested BP Systolic [...] Weight in lbs Pre/Post Dialysis Refused Weight 231.944453690866 BP Diastolic BP Location Tested BP Systolic [...] Weight in lbs Pre/Post Dialysis Refused Weight 229.361465439170 BP Diastolic BP Location Tested BP Systolic [...]
--- OUTSIDE RECORDS SUMMARY | 2025-09-16 23:41 | XMS_ITS | Encounter Summary ---
Author Organization [facility] Address [address] [place] [address] Care Team Providers Care Fishing Rod Trimmer Name Role Phone Shanelle Funk DRYERMAN/WOMAN Primary Care Provider Joycelyn Truong MD Primary Care Provider + [phone] Arielle Haynes DRYERMAN/WOMAN Primary Care Provider + [phone] Joycelyn Gomez MD Primary Care Provider + [phone] Uma Tomlin [facility] Primary Care Provider + Judy Tse NP Primary Care Provider [phone] Uriah Sevilla Primary Care Provider [phone] Mu Plunkett MD Primary Care Provider [phone] Uriah Sevilla Primary Care Provider [phone] Encounter Details Date Type Department Care Team (Late st Contact Info) Description 07/10/2016 Abstract [facility] CONVERSION [address] [place] [address] , Huang Dykes MD Social History Tobacco Use Types Packs/Day Years Used Date Smoking Tobacco: Never Assessed Comments Unknown Sex and Gender Information Value Date Recorded Sex Assigned at Female 11/20/2024 9:16 AM AUTO CARE CENTER MANAGER Legal Sex Female 7:00 PM CDT Gender Identity Not on file Sexual Orientation Not on file documented as of this encounter Plan of Treatment Upcoming Encounters Date Type Department Care Team (Late st Contact Info) Description 09/25/2025 8:30 AM AUTO CARE CENTER MANAGER Appointment [facility] [address] [address] [facility] [id number] [place] [address] [facility] [place] [address] [place] [address] [place], [place] [id number] documented as of this encounter Visit Diagnoses [...] Rule Out 11/02/2022 11/02/2022 11/02/2022 1:59 PM AUTO CARE CENTER MANAGER documented as of this encounter Care Teams Fishing Rod Trimmer Relationship Specialty Start Date End Date Shanelle Funk NP PCP - General 07/04/16 07/27/20 Joycelyn Gomez MD PCP - General INTERNAL MEDICINE 07/28/20 11/28/22 [place] [address] [address] [place] [address] PCP - General Nurse Practitioner Family 12/29/2212/23 Joycelyn Gomez MD PCP - General INTERNAL MEDICINE 11/29/22 12/28/22 Uma Tomlin, [facility]- [address] [place] [address] PCP - General 01/02/23 01/30/23 Judy Tse, ARCHIE [address], [address] [place] [address] PCP - General Nurse Practitioner Family 01/31/2310/25 [place] [address] [place] [address] PCP - General Physician C S S Representative Medical 11/12/23 08/24/25 Mu Plunkett MD [address] [place] [address] PCP - General OBGYN 08/25/25 08/30/25 [place] [address] [place] [address] PCP - General PHYSICIAN OPTICAL GOODS DRILL OPERATOR 08/31/25 documented as of this encounter
--- OUTSIDE RECORDS SUMMARY | 2025-09-16 23:41 | XMS_ITS | Encounter Summary ---
Author Organization [facility] Address [address] [place] [address] Care Team Providers Care Chocolatier Name Role Phone Joycelyn Gomez MD Primary Care Provider + [phone] Arielle Haynes BOILER OPERATOR Primary Care Provider + [phone] Joycelyn Gomez MD Primary Care Provider + [phone] Uma Tomlin [facility] Primary Care Provider + Judy Tse NP Primary Care Provider [phone] Uriah Sevilla Primary Care Provider [phone] Mu Plunkett MD Primary Care Provider [phone] Uriah Sevilla Primary Care Provider [phone] Encounter Details Date Type Department Care Team (Late st Contact Info) Description 10/31/[address] [facility] Medical Group Family & Internal Medicine - [place] [address] [place] [address] Joycelyn Gomez MD [address] [place] [address] [employer] Social History Tobacco Use Types [...] Sex Assigned at Female 11/20/2024 9:16 AM SENIOR BIOINFORMATICS SPECIALIST Legal Sex Female 7:00 PM CDT Gender Identity Not on file Sexual Orientation Not on file COVID-19 Exposure Response Date Recorded In the last month, have you been in contact with someone who was confirmed or suspected to have Coronavirus / COVID-19? No / Unsure 10/17/2021 1:23 PM SENIOR BIOINFORMATICS SPECIALIST documented as of this encounter Progress Notes * Arielle Jimenez RN - 10/31/2021 3:21 PM CST Printed to discuss with Dr. Hirsch OR BIOINFORMATICS SPECIALIST documented in this encounter Plan of Treatment Upcoming Encounters Date Type Department Care Team (Late st Contact Info) Description 09/25/2025 8:30 AM SENIOR BIOINFORMATICS SPECIALIST Appointment [facility] Outpatient Rehab [address] [place], [place] [phone] [place] [address] [place] [address] [place] [address] [place], [place] [phone] documented as of this encounter Visit Diagnoses Not on filedocumented in this encounter Additional Health Concerns Infection Onset Date Last Indicated Resolved Time COVID-19 Rule Out 01/31/2022 01/31/2022 01/31/2022 3:20 PM CDT COVID-19 Confirmed 01/31/2022 01/31/2022 12:32 AM CDT COVID-19 Rule Out 06/23/2022 06/23/2022 06/23/2022 12:16 PM CDT COVID-19 Rule Out 11/02/2022 11/02/2022 11/02/2022 1:59 PM SENIOR BIOINFORMATICS SPECIALIST Assessment Noted Time PHQ-9 Depression Total Score: 0 05/04/20 21 1:11 PM CDT documented as of this encounter Care Teams Chocolatier Relationship Specialty Start Date End Date Joycelyn Gomez MD PCP - General INTERNAL MEDICINE 07/28/20 11/28/22 [place] [address] [place] [address] PCP - General Nurse Practitioner Family 12/29/2212/23 Joycelyn Gomez MD PCP - General INTERNAL MEDICINE 11/29/22 12/28/22 U[facility]lin [facility] [address] [place], [place] [id number] PCP - General 01/02/23 01/30/23 [place] [address] [address], [address] [place] [address] PCP - General Nurse Practitioner Family 01/31/2310/25 [place] [address] [place] [address] PCP - General Physician Skull Grinder Medical 11/12/23 08/24/25 Mu Plunkett MD [address] [facility] [place] [address] PCP - General OBGYN 08/25/25 08/30/25 [place] [address] [place] [address] PCP - General PHYSICIAN GLASS RIBBON MACHINE OPERATOR 08/31/25 documented as of this encounter
--- OUTSIDE RECORDS SUMMARY | 2025-09-16 23:41 | XMS_ITS | Encounter Summary ---
Author Organization [facility] Address [facility] [place] [address] Care Team Providers Care Founder President And Ceo Name Role Phone Judy Tse NP Primary Care Provider [phone] Uriah Sevilla Primary Care Provider [phone] Mu Plunkett MD Primary Care Provider [phone] Uriah Sveilla Primary Care Provider [phone] Encounter Details Date Type Department Care Team (Late st Contact Info) Description 03/21/2023 MyChart Message Enc [facility] Medical Group - [facility] [address] [place] [address] [place], [facility] Provider Air Quality Message Social History Tobacco [...] Sex Assigned at Female 11/20/2024 9:16 AM MEDICAL CODING AUDITOR Legal Sex Female 7:00 PM CDT Gender Identity Not on file Sexual Orientation Not on file documented as of this encounter Plan of Treatment Upcoming Encounters Date Type Department Care Team (Late st Contact Info) Description 09/25/2025 8:30 AM MEDICAL CODING AUDITOR Appointment [facility] [address] [facility] [place] [address] [place] [address] [place] [address] [place] [address] [place], [place] [id number] documented as of this encounter Visit Diagnoses Not on filedocumented in this encounter Additional Health Concerns Assessment Noted Time PHQ-9 Depression Total Score: 1 02/01/20 22 9:49 AM CDT documented as of this encounter Care Teams Founder President And Ceo Relationship Specialty [place] [address] [facility], [facility] [address] [place], [place] [phone] PCP - General Nurse Practitioner Family 01/31/2310/25 [place] [address] [facility] [place] [address] PCP - General Physician Joint Maker Machine Medical 11/12/23 08/24/25 Mu Plunkett MD [address] [place] [address] PCP - General OBGYN 08/25/25 08/30/25 [place] [address] [facility] [place], [place] [phone] PCP - General PHYSICIAN OUTSIDE INSTALLER APPRENTICE 08/31/25 documented as of this encounter
--- OUTSIDE RECORDS SUMMARY | 2025-09-16 23:41 | XMS_ITS | Encounter Summary ---
Author Organization [facility] Address [address] [place] [address] Care Team Providers Care Garbage Truck Helper Name Role Phone Joycelyn Gomez MD Primary Care Provider + [phone] Arielle Haynes FARM TRACTOR OPERATOR Primary Care Provider + [phone] Joycelyn Gomez MD Primary Care Provider + [phone] Uma Tomlin [facility] Primary Care Provider + Judy Tse NP Primary Care Provider [phone] Uriah Sevilla Primary Care Provider [phone] Mu Plunkett MD Primary Care Provider [phone] Uriah Sevilla Primary Care Provider [phone] Encounter Details Date Type Department Care Team (Late st Contact Info) Description 09/18/2022 MyChart Message Enc [facility] Medical Group Family & Internal Medicine [facility] [address] [place] [address] Mart Gomez MD Request Social History [...] Sex Assigned at Female 11/20/2024 9:16 AM RENTAL COUNTER CLERK Legal Sex Female 7:00 PM CDT Gender Identity Not on file Sexual Orientation Not on file documented as of this encounter Plan of Treatment Upcoming Encounters Date Type Department Care Team (Late st Contact Info) Description 09/25/2025 8:30 AM RENTAL COUNTER CLERK Appointment [facility] Outpatient Rehab [address] [place] [address] [place] [address] [place], [place] [phone] [place] [address] [place] [address] documented as of this encounter Visit Diagnoses Not on filedocumented in this encounter Additional Health Concerns Infection Onset Date Last Indicated Resolved Time COVID-19 Rule Out 11/02/2022 11/02/2022 11/02/2022 1:59 PM RENTAL COUNTER CLERK Assessment Noted Time PHQ-9 Depression Total Score: 1 02/01/20 22 9:49 AM CDT documented as of this encounter Care Teams Garbage Truck Helper Relationship Specialty Start Date End Date Joycelyn Gomez MD PCP - General INTERNAL MEDICINE 07/28/20 11/28/22 [place] [address] [address] PCP - General Nurse Practitioner Family 12/29/2212/23 Joycelyn Gomez MD PCP - General INTERNAL MEDICINE 11/29/22 12/28/22 Uma Tomlin, [facility]- [address] [place], [place] [id number] PCP - General 01/02/23 01/30/23 [place] [address] [address], [address] [place] [address] PCP - General Nurse Practitioner [facility] 01/31/2310/25 [place] [address] [place] [address] PCP - General Physician Gas Appliance Mechanic Medical 11/12/23 08/24/25 Mu Plunkett MD [address] [place] [address] PCP - General OBGYN 08/25/25 08/30/25 [place] [address] [address] [address] PCP - General PHYSICIAN PLANNING INTERN 08/31/25 documented as of this encounter
--- OUTSIDE RECORDS SUMMARY | 2025-09-16 23:41 | XMS_ITS | Encounter Summary ---
Author Organization [facility] Address [address] [place] [address] Care Team Providers Care Mangle Feeder Name Role Phone Joycelyn Gomez MD Primary Care Provider + [phone] Arielle Haynes ELECTRICIAN MANAGER Primary Care Provider + [phone] Joycelyn Gomez MD Primary Care Provider + [phone] [facility] Primary Care Provider + Judy Tse NP Primary Care Provider [phone] Uriah Sevilla Primary Care Provider [phone] Mu Plunkett MD Primary Care Provider [phone] Uriah Sevilla Primary Care Provider [phone] Encounter Details Date Type Department Care Team (Late st Contact Info) Description 08/08/2022 Good Men Media Message Enc [facility] Medical Group Family & Internal Medicine [facility] [address] [place] [address] [facility] Provider antibiotic Social History Tobacco Use Types [...] Sex Assigned at Female 11/20/2024 9:16 AM SHIRT HEMMER Legal Sex Female 7:00 PM CDT Gender [...] st Contact Info) Description 09/25/2025 8:30 AM SHIRT HEMMER Appointment [facility] Outpatient Rehab [address] [place] [address] [place] [address] [place] [address] [place] [address] [place] [address] documented as of this encounter Visit Diagnoses Not on filedocumented in this encounter Additional Health Concerns Infection Onset Date Last Indicated Resolved Time COVID-19 Rule Out 11/02/2022 11/02/2022 11/02/2022 1:59 PM SHIRT HEMMER Assessment Noted Time PHQ-9 Depression Total Score: 1 02/01/20 22 9:49 AM CDT documented as of this encounter Care Teams Mangle Feeder Relationship Specialty Start Date End Date Joycelyn Gomez MD PCP - General INTERNAL MEDICINE 07/28/20 11/28/22 [place] [address] [facility] [address] [place] [address] PCP - General Nurse Practitioner Family 12/29/2212/23 Joycelyn Gomez MD PCP - General INTERNAL MEDICINE 11/29/22 12/28/22 Uma Tomlin, [facility] [address] [address] [place] [address] PCP - General 01/02/23 01/30/23 Judy Tse, ARCHIE [address] [facility] [address], [address] [place] [address] PCP - General Nurse Practitioner Family 01/31/2310/25 [place] [address] [facility] [place] [address] PCP - General Physician Mobile Ui Designer Medical 11/12/23 08/24/25 Mu Plunkett MD [address] [place] [address] PCP - General OBGYN 08/25/25 08/30/25 [place] [address] [facility] [place] [address] PCP - General PHYSICIAN BRUSH FILLER HAND 08/31/25 documented as of this encounter
--- OUTSIDE RECORDS SUMMARY | 2025-09-16 23:42 | XMS_ITS | Continuity of Care Document ---
Author Organization [facility] Address [address] [place] [address] Care Team Providers Care Law Writer Name Role Phone FRANTZ ZHANG Primary Care [...] Not Available Alice villarreal [address], [place], [address], 03/10/2025 07:42:34 03/10/20 25 03/10/2025 [UNIT Y] ANEUP LOIDY NIPT sex chromosome aneuploidy NOT DETECT ED normal Not Available Pilar monson [address], [place], [address], 03/10/2025 07:42:34 03/10/20 25 03/10/2025 [UNIT Y] ANEUP LOIDY NIPT monosomy X LOW RISK <1 in 10,000 normal Not Available [facility] [address], [place], [address], 03/10/2025 07:42:34 03/10/20 25 03/10/2025 [UNIT Y] ANEUP LOIDY NIPT trisomy 13 LOW RISK <1 in 10,000 normal Not Available [facility] [address], [place], [address], 03/10/2025 07:42:34 03/10/20 25 03/10/2025 [UNIT Y] ANEUP LOIDY NIPT trisomy 18 LOW RISK <1 in 10,000 normal Not Available [facility] [address], [place], [address], 03/10/2025 07:42:34 03/10/20 25 03/10/2025 [UNIT Y] ANEUP LOIDY NIPT trisomy 21 LOW RISK <1 in 10,000 normal Not Available [facility] [address], [place], [address], 03/10/2025 07:42:34 03/10/20 25 03/10/2025 [UNIT Y] ANEUP LOIDY NIPT sex FEMALE normal Not Available [facility] [address], [place], [address], 03/10/2025 07:42:34 03/10/20 25 03/10/2025 [UNIT Y] ANEUP LOIDY NIPT gestation SINGLE TON normal Not Available [facility] [address], [place], [address], 03/10/2025 07:42:34 03/10/20 25 03/10/2025 [UNIT Y] ANEUP LOIDY NIPT for detailed report, see pdf See PDF normal Not Available [facility] [address], [place], [address], 03/10/2025 07:42:34 03/13/20 25 03/13/2025 [UNIT Y] ANGELITO JAZMÍN Arzate sickle cell disease/beta -thalassemia /hemoglobino pathies carrier screen NEGATI VE normal Not Available [facility] [address], [place], [address], 03/13/2025 20:27:17 03/13/20 25 03/13/2025 [UNIT Y] ANGELITO JAZMÍN Arzate alpha-thalas semia carrier screen NEGATI VE normal Not Available [facility] [address], [place], [address], 03/13/2025 20:27:17 03/13/20 25 03/13/2025 [UNIT Y] ANGELITO JAZMÍN Arzate cystic fibrosis carrier screen NEGATI VE normal Not Available [facility] [address], [place], [address], 03/13/2025 20:27:17 03/13/20 25 03/13/2025 [UNIT Y] ANGELITO JAZMÍN Arzate spinal muscular atrophy carrier screen NEGATI VE 2 SMN1 copies , SNP not presen t normal Not Available [facility] [address], [place], [address], 03/13/2025 20:27:17 03/13/20 25 03/13/2025 [UNIT Y] ANGELITO JAZMÍN Arzate for detailed report, see pdf See PDF normal Not Available [facility] [address], [place], [address], 03/13/2025 20:27:17 03/04/20 25 03/04/2025 HEPAT ITIS C ANTIB BRODERICK ROLANDO Arzate, REFLE X TO CONFI RMATI ON hepatitis C antibody Non-re active non-re active Antib odies to HCV Not Detec carrington, does not exclu de the possi bilit y of expos ure to HCV. Not Available [facility] (Lab) [address], [place], [address], 03/05/2025 10:19:41 06/08/13 2503/04/2025 HEPAT ITIS B SURFA CE ANTIG EN hepatitis B surface antigen Non-re active non-re active This assay was perfo rmed using [employer] ratio n reage nts and test kits. Value s obtai neelima with other assay metho ds or kits canno t be used inter curran eably . Not Available [facility] (Lab) [address] [facility], [place], [address], 03/05/2025 10:19:41 03/04/2003/04/2025 HIV 1/2 ANTIG EN/AN TIBOD Y, REFLE X CONFI RMATI ON HIV antigen/anti body Nonrea ctive nonrea ctive HIV-1 antig en and HIV-1 /HIV- 2 antib odies were not detec carrington. No labor atory evide nce of HIV infec tion. Not Available [facility] (Lab) [address] [facility], [place], [address], 03/05/2025 10:19:41 03/04/20 25 03/04/2025 RUBEL LA IGG ANTIB BRODERICK, QUANT rubella antibodies, IgG Reacti ve reacti ve Not Available [facility] (Lab) [address] [facility], [place], [address], 03/05/2025 10:19:42 03/04/20 25 03/04/2025 RUBEL LA IGG ANTIB BRODERICK, QUANT rubella antibodies, IgG quant 14.3 IU/mL >=10 Non-r eacti ve (Non- Immun e) <10 IU/mL React gisele (Immu ne) > or = 10 IU/mL Not Available [facility] (Lab) [address], [place], [address], 03/05/2025 10:19:42 03/04/2003/04/2025 CBC W/DIF F WBC 9.6 10'3/ uL 3.5-10 .5 Not Available [facility] (Lab) [address] [facility], [place], [address], 03/05/2025 10:19:42 03/04/20 25 03/04/2025 CBC W/DIF F RBC 3.79 10'6/ uL (based on docume nted legal sex) 3.80-5 .20 low Not Available [facility] (Lab) [address], [place], [address], 03/05/2025 10:19:42 03/04/20 25 03/04/2025 CBC W/DIF F HGB 12.3 g/dL (based on docume nted legal sex) 11.6-1 5.4 Not Available [facility] (Lab) [address] [facility], [place], [address], 03/05/2025 10:19:42 03/04/20 25 03/04/2025 CBC W/DIF F HCT 38.4 % (based on docume nted legal sex) 34.0-4 5.0 Not Available [facility] (Lab) [address] [facility], [place], [address], 03/05/2025 10:19:42 03/04/20 25 03/04/2025 CBC W/DIF F MCV 101.3 fL 80.0-9 9.0 high Not Available [facility] (Lab) [address] [facility], [place], [address], 03/05/2025 10:19:42 03/04/20 25 03/04/2025 CBC W/DIF F MCH 32.5 pg 27.0-3 4.0 Not Available [facility] (Lab) [address] [facility], [place], [address], 03/05/2025 10:19:42 03/04/20 25 03/04/2025 CBC W/DIF F MCHC 32.0 g/dL 32.0-3 5.5 Not Available [facility] (Lab) [address] [facility], [place], [address], 03/05/2025 10:19:42 03/04/20 25 03/04/2025 CBC W/DIF F RDW 14.6 % 11.0-1 5.0 Not Available [facility] (Lab) [address] [facility], [place], [address], 03/05/2025 10:19:42 03/04/20 25 03/04/2025 CBC W/DIF F plt 245 10'3/ uL 150-40 0 Not Available [facility] (Lab) [address] [facility], [place], [address], 03/05/2025 10:19:42 03/04/20 25 03/04/2025 CBC W/DIF F MPV 10.8 fL 8.8-12 .1 Not Available [facility] (Lab) [address] [facility], [place], [address], 03/05/2025 10:19:42 03/04/20 25 03/04/2025 CBC W/DIF F NRBC's 0.0 % 0.0 Not Available [facility] (Lab) [address] [facility], [place], [address], 03/05/2025 10:19:42 03/04/20 25 03/04/2025 CBC W/DIF F absolute NRBCs 0.0 10'3/ uL no refere nce range establ ished Not Available [facility] (Lab) [address] [facility], [place], [address], 03/05/2025 10:19:42 03/04/20 25 03/04/2025 CBC W/DIF F neutrophils 66.6 % 34.0-7 3.0 Not Available [facility] (Lab) [address] [facility], [place], [address], 03/05/2025 10:19:42 03/04/20 25 03/04/2025 CBC W/DIF F lymphocytes 21.0 % 15.0-5 0.0 Not Available [facility] (Lab) [address] [place], [address], 03/05/2025 10:19:42 03/04/20 25 03/04/2025 CBC W/DIF F monocytes 8.9 % 1.0-15 .0 Not Available [facility] (Lab) [address] [facility], [place], [address], 03/05/2025 10:19:42 03/04/20 25 03/04/2025 CBC W/DIF F eosinophils 2.5 % 0.0-8. 0 Not Available [facility] (Lab) [address] [facility], [place], [address], 03/05/2025 10:19:42 03/04/20 25 03/04/2025 CBC W/DIF F basophils 0.7 % 0.0-2. 0 Not Available [facility] (Lab) [address] [facility], [place], [address], 03/05/2025 10:19:42 03/04/20 25 03/04/2025 CBC W/DIF [...] separ ately if prese nt. Not Available [facility] (Lab) [address] [facility], [place], [address], 03/05/2025 10:19:42 03/04/20 25 03/04/2025 CBC W/DIF F absolute neutrophils 6.4 10'3/ uL 1.5-8. 0 Not Available [facility] (Lab) [address] [facility], [place], [address], 03/05/2025 10:19:42 03/04/20 25 03/04/2025 CBC W/DIF F absolute lymphocytes 2.0 10'3/ uL 1.0-4. 0 Not Available [facility] (Lab) [address] [facility], [place], [address], 03/05/2025 10:19:42 03/04/20 25 03/04/2025 CBC W/DIF F absolute monocytes 0.9 10'3/ uL 0.2-1. 0 Not Available [facility] (Lab) [address], [place], [address], 03/05/2025 10:19:42 03/04/2003/04/2025 CBC W/DIF F absolute eosinophils 0.2 10'3/ uL 0.0-0. 6 Not Available [facility] (Lab) [address], [place], [address], 03/05/2025 10:19:42 03/04/2003/04/2025 CBC W/DIF F absolute basophils 0.1 10'3/ uL 0.0-0. 3 Not Available [facility] (Lab) [address], [place], [address], 03/05/2025 10:19:42 03/04/2003/04/2025 CBC W/DIF F absolute immature granulocytes 0.0 10'3/ uL 0.00-0 .10 Refer ence range s for nonbi nary/ inter sex or unspe cifie d gende r patie nts have not been estab lishe d. [facility]as e [facility] for range s estab lishe d for cisge nder patie nts and evalu ate in the clini mariano alonzo xt of the indiv idual patie nt: https ://priyanka rodriguez book. nm.or g/gen derx Not Available [facility] (Lab) [address], [place], [address], 03/05/2025 10:19:42 03/04/2003/04/2025 TYPE/ RH/SC REEN ABO/Rh type A POS Not Available [facility] (Lab) [address], [place], [address], 03/05/2025 10:19:42 03/04/2003/04/2025 TYPE/ RH/SC REEN antibody screen NEG Not Available [facility] (Lab) [address], [place], [address], 03/05/2025 10:19:42 03/04/2003/04/2025 TYPE/ RH/SC REEN exp date 2024 23:59 Not Available [facility] (Lab) [address], [place], [address], 03/05/2025 10:19:42 03/04/2003/04/2025 HEMOG LOBIN A1C hemoglobin [...] >8.0% Actio n sugge sted Not Available [facility] (Lab) [address], [place], [address], 03/05/2025 10:19:43 03/04/20 25 03/04/2025 RPR SCREE N, REFLE X TITER /CONF IRMAT ION RPR qualitative Nonrea ctive nonrea ctive Not Available [facility] (Lab) [address], [place], [address], 03/05/2025 10:19:43 03/04/2003/04/2025 CT/GC AND TRICH OMONA S VAGIN ISABEL (RRNA ), URINE chlamydia trachomatis, PCR Negati ve negati ve Not Available [facility] (Lab) [address], [place], [address], 03/06/2025 00:29:18 03/04/2003/04/2025 CT/GC AND TRICH OMONA S VAGIN ISABEL (RRNA ), URINE neisseria gonorrhoeae, PCR Negati ve negati ve Not Available [facility] (Lab) [address] [facility], [place], [address], 03/06/2025 00:29:18 03/04/20 25 03/04/2025 CT/GC AND TRICH OMONA S VAGIN ISABEL (RRNA ), URINE trichomonas vaginalis ribosomal RNA (rrna) Negati ve negati ve Not Available [facility] (Lab) [address] [facility], [place], [address], 03/06/2025 00:29:18 03/04/2003/04/2025 CULTU RE: URINE result report SEE RESULT S BELOW Test: Cultu re: Urine Speci men Sourc e: Urine Voide d Speci men Type: Urine Speci men Date: 2024 1056 Resul t Date: 2024 2325 Resul t Statu s: Final resul t Abnor mal: No Resul ting Lab: [facility] [address] [facility] [address] Tel: CULTU RE ----- ----- ----- --- Cultu re resul t (>=3 organ isms prese nt) indic ates possi ble conta minat ion. Repea t cultu re if sympt oms indic ate. Not Available [facility] (Lab) [address] [facility], [place], [address], 03/06/2025 00:29:19 03/19/2003/19/2025 CULTU RE: URINE result report SEE RESULT S BELOW Test: Cultu re: Urine Speci men Sourc e: Urine Voide d Speci men Type: Urine Speci men Date: 2024 1709 Resul t Date: 2024 0322 Resul t Statu s: Final resul t Abnor mal: No Resul ting Lab: [facility] [address] [place] [facility] [place] [address] Tel: CULTU RE ----- ----- ----- --- No growt h in 1 day (dete ction level of 10,00 0 colon ies / ml.) Not Available [facility] (Lab) [address] [facility], [place], [address], 03/21/2025 04:28:02 03/19/2003/19/2025 CULTU RE: URINE result report SEE RESULT S BELOW Test: Cultu re: Urine Speci men Sourc e: Urine Voide d Speci men Type: Urine Speci men Date: 2024 Resul t Date: 2024 Resul t Statu s: Final resul t Abnor mal: No Resul ting Lab: [facility] [address] [facility] [address] Tel: CULTU RE ----- ----- ----- --- Cultu re resul t (>=3 organ isms prese nt) indic ates possi ble conta minat ion. Repea t cultu re if sympt oms indic ate. Not Available [facility] (Lab) [address] [facility], [place], [address], 03/21/2025 22:45:05 07/08/20 25 07/08/2025 HEMOG LOBIN (HGB) HGB 11.1 g/dL (based on docume nted legal sex) 11.6-1 5.4 low Not Available [facility] (Lab) [address] [facility], [place], [address], 07/09/2025 11:13:10 07/08/20 25 07/08/2025 HEMAT OCRIT (HCT) HCT 34.0 % (based on docume nted legal sex) 34.0-4 5.0 Not Available [facility] (Lab) [address] [facility], [place], [address], 07/09/2025 11:13:11 07/08/20 25 07/08/2025 GTT - GESTA TARIQ L SCREE N, ACOG OB glucose, 1 hour screen 171 mg/dL 70-135 high Not Available [facility] (Lab) [address] [facility], [place], [address], 07/09/2025 11:13:11 07/08/2007/08/2025 HIV 1/2 ANTIG EN/AN TIBOD Y, REFLE X CONFI RMATI ON HIV antigen/anti body Nonrea ctive nonrea ctive HIV-1 antig en and HIV-1 /HIV- 2 antib odies were not detec carrington. No labor atory evide nce of HIV infec tion. Not Available [facility] (Lab) [address] [facility], [place], [address], 07/09/2025 11:13:12 07/08/2007/08/2025 RPR SCREE N, REFLE X TITER /CONF IRMAT ION RPR qualitative Nonrea ctive nonrea ctive Not Available [facility] (Lab) [address] [facility], [place], [address], 07/09/2025 11:13:12 07/16/2007/16/2025 GTT - GESTA TARIQ L, 3 HOUR, ACOG glucose, fasting acog 80 mg/dL 70-94 Not Available [facility] (Lab) [address] [place], [address], 07/17/2025 05:25:34 07/16/20 25 07/16/2025 GTT - GESTA TARIQ L, 3 HOUR, ACOG glucose, 1 hour acog 175 mg/dL 70-179 Not Available [facility] (Lab) [address] [place], [address], 07/17/2025 05:25:34 07/16/20 25 07/16/2025 GTT - GESTA TARIQ L, 3 HOUR, ACOG glucose, 2 hour acog 154 mg/dL 70-154 Not Available [facility] (Lab) [address] [facility] [place], [address], 07/17/2025 05:25:34 07/16/20 25 07/16/2025 GTT - GESTA TARIQ L, 3 HOUR, ACOG glucose, 3 hour acog 72 mg/dL 70-139 Not Available [facility] (Lab) [address] [facility], [place], [address], 07/17/2025 05:25:34 03/04/20 25 03/03/2025 US, obste tric, follo w-up No observ ation record ed. [email or web address] Sindy [address], [place], [address], 03/07/2025 21:37:38 03/04/20 25 03/03/2025 US, obste tric, 1st trime ster No observ ation record ed. Sindy [address], [place], [address], 03/09/2025 12:28:15 03/19/20 25 03/19/2025 US, obste tric, nucha l trans lucen cy No observ ation record ed. [facility] [address], [place], [address], 03/19/2025 17:52:27 03/19/20 25 03/19/2025 US, obste tric, 1st trime ster No observ ation record ed. [facility] [address], [place], [address], 03/19/2025 17:52:36 03/19/20 25 03/19/2025 US, obste tric, follo w-up No observ ation record ed. [email or web address] [address], [place], [address], 03/23/2025 09:26:34 04/06/20 25 04/06/2025 imagi ng/di agnos tic resul t No observ ation record ed. JIMENA S[address], [place], [address], 04/13/2025 12:13:32 05/13/20 25 05/13/2025 US, obste tric, 2nd or 3rd trime ster No observ ation record ed. [email or web address] [place] [address], [place], [address], 05/13/2025 18:22:31 05/13/20 25 05/13/2025 US, obste tric, 2nd or 3rd trime ster No observ ation record ed. [email or web address] S[address], [place], [address], 05/13/2025 16:32:33 08/07/20 25 08/07/2025 US, obste tric, follo w-up No observ [facility]ion [email or web address] [address], [place], [address], 08/07/2025 13:46:32 08/07/20 25 08/07/2025 US, obste tric, follo w-up No observ ation record ed. [email or web address] S[address], [place], [address], 08/24/2025 11:16:22 Result Notes None recorded. Problems Name Problem SNOMED Code Status Onset Date Resolution Date Notes Provider Name and Address Organization Details Recorded Time 42879220 Active 2024 Jackelin duvall [place] - [facility] 5 09:55:04 Multigravida of advanced maternal age 943216260 Active 2024 AMI CARRION MD [address], [place], [address], [facility] 5 15:47:41 Problem Notes None recorded. Procedures Surgical History Date Name Laterality Status Provider Name and Address Organization Details Recorded Time 5 Date of Last Pap Smear completed [facility] 03/04/2025 09:47:11 6 Colonoscopy completed [facility] 03/04/2025 09:54:07 7 Dilation and Curettage completed [facility] 03/04/2025 09:54:13 Imaging Results None recorded. Procedure Notes None recorded. Medical Equipment None Reported. Allergies Allergen ID Allergen Name Allergen Category Reaction Reaction Severity Criticality Documentation Date Start Date Code Code System Note Provider Name and Address Organization Details Recorded Time 70861 tramadol medicatio n Not available Not available Not available 03/04/[address] [facility] 5 09:46:55 51766 nickel sulfate Not available rash Not available low 09/02/20252015 64464 RxNorm Not Available jimena - External Data [...] Updated DateTime 09/07/2025 165.1 cm 38.1 kg/m2 985132.65 g 121/80 mm[Hg] ANAMIKA BHATTI [facility] 09/07/2025 10:04:17 Social History Question Answer [...] Or The Highest Degree You Have Received? [id number] Information not available 03/04/2025 Are There Any [...] anxious, or unable to sleep at night)? [id number] Information not available 03/04/2025 Family History Relationship Description Onset Age of this Age Resolved Age Notes LastModified by Organization Details LastModified Time Father Diabetes mellitus Not available 2024 09:47:00 Mother Diabetes mellitus Not available 2024 09:47:00 Medical History Condition Response Allergies (Food, seasonal, environmental ) N Other N Breast Cancer N Drug/Latex Allergies/Reactions N Blood Transfusion N Lung Disease N Dermatologic Disorders N Defects or Inherited Disease N Breast Problem N Gestational Diabetes N Hematologic disorders N Anesthesia Complications N History of STI N Deep Vein Thrombosis N Polycystic ovary syndrome Y Anxiety Disorder N Autoimmune disease N Arthritis N Polyps N Infertility N History of abnormal pap N Acid Reflux (GERD) N Cancer N Varicosities N Stroke N [...] ICD10 Code Diagnosis IMO Codes Diagnosis Note [id number] Dallin Wilson MD [place] [address] [place] [address] 08/17/2025 10:54:26 08/17/2025 12:11:01 care status 084696016 Z34.83 [id number] AMI CARRION MD [place] [address] [place] [address] 09/02/2025 09:51:53 09/02/2025 10:46:47 Multigravida of advanced maternal age 680540519 O09.529 14442062 Gestation period, 36 weeks 27715206 Z3A.36 [id number] [id number] AMI CARRION MD [place] [address] [place] [address] 09/07/2025 09:56:21 09/07/2025 10:25:34 Multigravida of advanced maternal age 737457461 O09.529 35601858 Gestation period, 37 weeks 92018659 Z3A.37 1357184 Health Concerns Section Related Observation LastModified by Organization Detai ls LastModified Time None Recorded Concern Status LastModified by Organization Details LastModified Time None Recorded Payers Encounter Date Sequence Insurance Name Policy Number Policy Delgado Covered Member ID Delgado Member ID Guarantor Name 09/07/2025 1 [facility] (O) [employer] Anamika Crowley [id number] Anamika Crowley Notes Date Note Type Note Provider Name and Address Organization Details Recorded Time 09/07/2025 text/html Generic HPI TemplateReported by Patient AMI CARRION MD [address], [place], [address], [facility] 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 Mechanic Apprentice Status 03/04/20 25 1 A Positive 174 Micah OPEN Fetus Data First Name Last Name Admitted to NICU Weight (g) Sex Living Outcome Pediatric Complications Fetus ID Race Codes Race Delivery Type 10101 Problems Problem Notes Problem Name Start Date End Date Resolution Snomed Code Not e Multigravida of advanced maternal age 0603/04/2025 959659143 Teddy Calculation Initial Teddy Date Initial Exam [...] Date Ultra Sound Latest Days Gestation 0 [email or web address] 03/04/2025 09/26/19 26 0 Pre- Flowsheet Flowsheet Date 03/04/2025 Block Score Blood Edema Fundus Height Fundus Units Glucose Ketones Leukocytes Nitrite Labor Signs Protein Cervic Dilation Cervic Effacement Cervic Station Type Weight in lbs Pre/Post Dialysis Refused Weight 174.526538730138 BP Diastolic BP Location Tested BP Systolic BP Type 77 L arm 115 sitting Fetus Heart Rate Present Fetus Movement A No Comments Patient presents to [facility] care. No nausea or cramping. Hx [...] Type Weight in lbs Pre/Post Dialysis Refused 183.447509093788 BP Diastolic BP Location Tested BP Systolic [...] Weight in lbs Pre/Post Dialysis Refused Weight 197.206373091189 BP Diastolic BP Location Tested BP Systolic [...] Weight in lbs Pre/Post Dialysis Refused Weight 195.085679034405 BP Diastolic BP Location Tested BP Systolic [...] Weight in lbs Pre/Post Dialysis Refused Weight 212.850501314567 BP Diastolic BP Location Tested BP Systolic [...] Type Weight in lbs Pre/Post Dialysis Refused 219.618251888554 BP Diastolic BP Location Tested BP Systolic [...] Type Weight in lbs Pre/Post Dialysis Refused 223.500679780503 BP Diastolic BP Location Tested BP Systolic [...] Type Weight in lbs Pre/Post Dialysis Refused 231.987553339849 BP Diastolic BP Location Tested BP Systolic [...] Weight in lbs Pre/Post Dialysis Refused Weight 232.5572165755 BP Diastolic BP Location Tested BP Systolic [...] Weight in lbs Pre/Post Dialysis Refused Weight 231.486994563285 BP Diastolic BP Location Tested BP Systolic [...] Weight in lbs Pre/Post Dialysis Refused Weight 229.548612293150 BP Diastolic BP Location Tested BP Systolic [...]
[2025-09-16 23:49] VITALS: BMI 35.9
--- NOTE | 2025-09-16 23:49 | OBADM ---
This patient, Anamika Crowley, admitted to the OB room Labor/Delivery/Recovery 105 for observation. Patient/family oriented to hospital policies and general routines including ID bracelet, bed and alarms, visiting hours, pain management, procedures, bathroom and other care routines, personal items, smoking policy, room service/diet, and visiting hours. Patient/Family are encouraged to report perceived risks to care and to ask questions if they do not understand what they are told or what they should do.
--- NOTE | 2025-09-23 16:06 | PM.OBTRLD ---
OB - Triage/Final Diagnosis Visit Information Date of evaluation: 09/16/25 Reason for evaluation: threatened labor Comments/Additional reasons for admission: I have assessed the risk for this patient, Anamika Crowley, and determined that she would benefit from observation care.
--- NOTE | 2025-10-08 11:44 | PM.OBTRLD ---
OB - Triage/Final Diagnosis Visit Information Reason for evaluation: threatened labor Comments/Additional reasons for admission: I have assessed the risk for this patient, Anamika Crowley, and determined that she would benefit from observation care. Final Diagnosis (1) Contractions of uterus of variable strength: Code(s): O62.8 - Other abnormalities of forces of labor Status: Acute
== END 2025-09-17 00:06 | disposition home or self-care (01) ==
PROVIDERS: Admitting Provider Obstetrics & Gynecology; PCP Physician Assistant; Visit Provider Obstetrics & Gynecology
DX: O47.1 False labor at or after 37 completed weeks of gestation (principal); Z3A.38 38 weeks gestation of pregnancy; O62.8 Other abnormalities of forces of labor
CPT/HCPCS: 99199; G0378; G0379